=== PATIENT | male | born 1940 | race Caucasian/White ===

== ENCOUNTER 2019-10-09 09:41 | Outpatient (CLI) | payer MEDICARE, SELFPAY ==
[2019-10-09 09:54] LABS: Hematocrit 21.2 % (37.0-46.0); Mean Corpuscular HGB Conc 32.1 g/dL (32.0-36.0); Mean Corpuscular Hemoglobin 34.2 pg (27.0-31.0); Mean Corpuscular Volume 106.5 fL (78.0-102.0); Mean Platelet Volume 11.5 fl (8.7-11.0); Platelet Count Result 186 K/mm3 (150-420); Red Blood Count 1.99 M/mm3 (4.70-6.10); Red Cell Distribution Width 25.8 % (11.6-14.4); White Blood Count 3.9 K/mm3 (4.8-10.8)
[2019-10-09 10:01] LABS: Hemoglobin 6.8 g/dL (12.4-15.3)
[2019-10-09] MEDS: DARBEPOETIN ALFA 300 MCG/0.6 ML SUB-Q (10:11)
--- NOTE | 2019-10-09 10:11 | PC.NURSE ---
Patient here to receive sub Q injection of Aranesp. Patient tolerated well to right upper arm, band aid applied to site. Pt. accompanied to front door via wheelchair by this nurse. Patient is to go to oncology appointment and come back after to receive 1 UT of PRBC. Patient denies any questions at discharge.
[2019-10-09 10:39] LABS: Band Neutrophils Percent 3 % (0-6); Lymphocytes Absolute Manual 0.81 K/mm3 (1.1-4.5); Lymphocytes Percent Manual 21 % (18-44); Neutrophils Absolute Manual 2.53 K/mm3 (1.3-6.7); Neutrophils Percent Manual 62 % (46-73); Total Cells Counted 100
[2019-10-09 10:40] LABS: Basophils Absolute Manual 0.07 K/mm3 (0-0.1); Basophils Percent Manual 2 % (0-1); Eosinophils Percent Manual 0 % (1-6); Monocytes Absolute Manual 0.42 K/mm3 (0.1-0.90); Monocytes Percent Manual 11 % (3-9); Myelocytes Percent 1 %; Platelet Estimate Adequate (Adequate)
--- NOTE | 2019-10-09 11:30 | PC.NURSE ---
Patient returned from Dr. dior. Pt. sitting up in chair resting. Tolerated IV start well. Provided with call light and cup of coffee. Waiting from blood product to be ready before beginning transfusion. Blood Consent formed signed and placed on chart. Patient states understanding.
[2019-10-09 11:55] VITALS: BP 116/47; PULSE 84; RESP 18; TEMP 36.6; O2SAT 97
[2019-10-09] MEDS: ACETAMINOPHEN 325 MG TABLET 650 MG BY MOUTH (11:55)
[2019-10-09] MEDS: SODIUM CHLORIDE 0.9% IV 250 ML 100 ML IVPB (11:55)
[2019-10-09 12:15] VITALS: BP 131/44; PULSE 88; RESP 18; TEMP 36.6; O2SAT 96
--- NOTE | 2019-10-09 12:15 | PC.NURSE ---
Transfusion rate increased from 100 to 125ml/hr. Patient tolerating well. Call light at side.
--- NOTE | 2019-10-09 12:35 | PC.NURSE ---
Transfusion rate increased from 125ml/hr to 150ml/hr. Patient tolerating well.
[2019-10-09 12:48] LABS: Alanine Aminotransferase 17 U/L (16-63); Alkaline Phosphatase 90 U/L (46-116); Aspartate Amino Transferase 15 U/L (15-37); Bilirubin,Total 0.8 mg/dL (0.00-1.00); Blood Urea Nitrogen 19 mg/dL (7-18); Calcium 8.7 mg/dL (8.5-10.1); Carbon Dioxide 27 mmol/L (21-32); Chloride 105 mmol/L (98-108); Estimated Glomerular Filt Rate > 60; Ferritin 891 ng/mL (26-388); Glucose 122 mg/dL (70-99); Iron 165 ug/dL (65-175); Osmolality Calculated 293 mOsm/kg (285-295); Percent Iron Saturation 90 % (12-57); Sodium 140 mmol/L (136-145); Total Protein 6.5 g/dL (6.4-8.2)
[2019-10-09 13:15] VITALS: BP 110/40; PULSE 76; RESP 18; TEMP 36.6; O2SAT 95
--- NOTE | 2019-10-09 13:15 | PC.NURSE ---
Patient ate 100% of lunch. Resting in chair with BLE elevated. Transfusion cont. at 150ml/hr. Patient tolerating transfusion well. Denies any needs. Vital signs stable.
[2019-10-09 14:05] VITALS: BP 114/45; PULSE 75; RESP 18; TEMP 36.8; O2SAT 96
[2019-10-09 14:20] VITALS: BP 114/42; PULSE 75; RESP 18; TEMP 36.7; O2SAT 96
--- NOTE | 2019-10-09 14:20 | PC.NURSE ---
Patient tolerated blood transfusion well. Vital signs remain stable. Normal saline running till line clear. Pt. sitting up in chair resting. Lab to draw post H&H at 1520. Pt. denies any needs. Call light at side.
--- NOTE | 2019-10-09 15:45 | PC.NURSE ---
Lab in room to draw blood. Patient tolerated well. Patient waiting for result of labs before discharging.
[2019-10-09 15:51] LABS: Hematocrit 21.2 % (37.0-46.0)
--- NOTE | 2019-10-09 16:00 | PC.NURSE ---
Patient notified of lab result. IV site discontinued. Dressing applied to site. Patient tolerated well. Denies any questions or concerns. Patient accompanied to front door via wheelchair by this nurse. Next appointment for sujata made for 10-23-19 at 1000.
[2019-10-13 20:05] LABS: Transferrin 139 mg/dL (188-341)
== END 2019-10-09 09:42 | disposition home or self-care (01) ==
PROVIDERS: PCP Internal Medicine; Visit Provider Internal Medicine Hematology & Oncology
DX: D46.9 Myelodysplastic syndrome, unspecified (principal)
CPT/HCPCS: 36415; 36430; 80053; 82728; 83540; 83550; 84466; 85014; 85018; 85025; 86850; 86900; 86901; 86923; 96372; A9270; J0881; J7050; P9016

== ENCOUNTER 2019-10-23 09:45 | Outpatient (CLI) | payer MEDICARE, SELFPAY ==
[2019-10-23 09:56] LABS: Mean Corpuscular HGB Conc 31.9 g/dL (32.0-36.0); Mean Corpuscular Hemoglobin 34.3 pg (27.0-31.0); Mean Corpuscular Volume 107.4 fL (78.0-102.0); Mean Platelet Volume 11.2 fl (8.7-11.0); Platelet Count Result 172 K/mm3 (150-420); Red Blood Count 1.75 M/mm3 (4.70-6.10); Red Cell Distribution Width 25.4 % (11.6-14.4); White Blood Count 3.4 K/mm3 (4.8-10.8)
[2019-10-23 10:33] LABS: Hematocrit 18.8 % (37.0-46.0)
[2019-10-23] MEDS: DARBEPOETIN ALFA 300 MCG/0.6 ML SUB-Q (10:33)
[2019-10-23 10:35] LABS: Band Neutrophils Percent 8 % (0-6); Neutrophils Absolute Manual 2.17 K/mm3 (1.3-6.7); Neutrophils Percent Manual 56 % (46-73); Total Cells Counted 100
[2019-10-23 10:36] LABS: Basophils Percent Manual 0 % (0-1); Eosinophils Absolute Manual 0.06 K/mm3 (0.02-0.5); Eosinophils Percent Manual 2 % (1-6); Lymphocytes Absolute Manual 0.64 K/mm3 (1.1-4.5); Lymphocytes Percent Manual 19 % (18-44); Monocytes Absolute Manual 0.51 K/mm3 (0.1-0.90); Monocytes Percent Manual 15 % (3-9)
[2019-10-23 10:37] LABS: Platelet Estimate Adequate (Adequate)
[2019-10-23 11:35] VITALS: BP 100/40; PULSE 80; RESP 14; TEMP 36.6; O2SAT 94
[2019-10-23] MEDS: SODIUM CHLORIDE 0.9% IV 250 ML 30 ML IVPB (11:43)
[2019-10-23] MEDS: ACETAMINOPHEN 325 MG TABLET 650 MG PO (11:43)
[2019-10-23 12:02] VITALS: BP 100/50; PULSE 80; RESP 14; TEMP 36.6; O2SAT 94
[2019-10-23 12:20] VITALS: BP 101/49; PULSE 80; RESP 18; TEMP 36.6; O2SAT 95
[2019-10-23 13:20] VITALS: BP 102/46; PULSE 72; RESP 14; TEMP 36.7; O2SAT 95
[2019-10-23 14:05] VITALS: BP 107/49; PULSE 76; RESP 14; TEMP 36.8; O2SAT 100
[2019-10-23 15:01] LABS: Hematocrit 19.7 % (37.0-46.0); Hemoglobin 6.4 g/dL (12.4-15.3)
--- NOTE | 2019-10-23 15:10 | PC.NURSE ---
Patient received biweekly aranesp injection. H/H 6.0/18.8 Dr. Otoole office notified and received order to given 1 unit prbcs with post H/H to be drawn. Patient administered 1 unit PRBC's and post HBG 6.[address] Otoole office per Sandhya day Charge nurse. No call back noted. Patient was dc to home. Safe exit of hospital. Steady on feet. Patient has had many blood transfusions and verbalizes s/sx to look for at home for post blood transfusion.
== END 2019-10-23 09:46 | disposition home or self-care (01) ==
PROVIDERS: PCP Internal Medicine; Visit Provider Internal Medicine Hematology & Oncology
DX: D46.9 Myelodysplastic syndrome, unspecified (principal)
CPT/HCPCS: 36415; 36430; 85014; 85018; 85025; 86850; 86900; 86901; 86923; 96372; A9270; J0881; J7050; P9016

== ENCOUNTER 2019-10-24 09:53 | Outpatient (CLI) | payer MEDICARE, SELFPAY ==
--- NOTE | 2019-10-24 10:15 | PC.NURSE ---
Patient here for blood transfusion, 20 gauge IV initiated in left forearm.
[2019-10-24 10:41] VITALS: BP 109/40; PULSE 88; RESP 20; TEMP 36.9; O2SAT 98
[2019-10-24 10:57] VITALS: BP 111/35; PULSE 80; RESP 20; TEMP 36.7; O2SAT 94
--- NOTE | 2019-10-24 11:16 | PC.NURSE ---
Rate increased to 125mL per hour
[2019-10-24 11:57] VITALS: BP 110/36; PULSE 78; RESP 20; TEMP 36.5; O2SAT 96
--- NOTE | 2019-10-24 11:57 | PC.NURSE ---
Rate increased to 150mL per hour
[2019-10-24 12:57] VITALS: BP 110/42; PULSE 76; RESP 20; TEMP 36.7; O2SAT 95
[2019-10-24 13:53] VITALS: BP 125/37; PULSE 84; RESP 20; TEMP 36.5; O2SAT 96
[2019-10-24 13:56] LABS: Hemoglobin 7.3 g/dL (12.4-15.3)
--- NOTE | 2019-10-24 14:20 | PC.NURSE ---
IV line left forearm discontinued, patient assisted into wheelchair and taken downstairs. Left per private vehicle
== END 2019-10-24 09:54 | disposition home or self-care (01) ==
LOC: CHSTREATRM 09:56
PROVIDERS: PCP Internal Medicine; Visit Provider Internal Medicine Hematology & Oncology
DX: D46.9 Myelodysplastic syndrome, unspecified (principal)
CPT/HCPCS: 36415; 36430; 85014; 85018; 86923; P9016

== ENCOUNTER 2019-11-06 09:30 | Outpatient (CLI) | payer MEDICARE, SELFPAY ==
[2019-11-06] VITALS (11 sets, daily range): BP systolic 108–124; BP diastolic 40–52; PULSE 69–84; RESP 14–20; TEMP 36.3–37.1; O2SAT 94–97
[2019-11-06 09:39] LABS: Hematocrit 20.7 % (37.0-46.0); Mean Corpuscular HGB Conc 32.4 g/dL (32.0-36.0); Mean Corpuscular Hemoglobin 34.4 pg (27.0-31.0); Mean Corpuscular Volume 106.2 fL (78.0-102.0); Mean Platelet Volume 10.9 fl (8.7-11.0); Platelet Count Result 179 K/mm3 (150-420); Red Blood Count 1.95 M/mm3 (4.70-6.10); Red Cell Distribution Width 23.8 % (11.6-14.4); White Blood Count 3.8 K/mm3 (4.8-10.8)
[2019-11-06 09:58] LABS: Hemoglobin 6.7 g/dL (12.4-15.3)
[2019-11-06] MEDS: DARBEPOETIN ALFA 300 MCG/0.6 ML SUB-Q (10:00)
--- NOTE | 2019-11-06 10:08 | PC.NURSE ---
Pt to room 203 per wc. Up to chair per self using cane. A&Ox3. Oriented to room, call cain in reach. Aranesp given. IV started for blood. Reminded to call with needs.
[2019-11-06 10:11] LABS: Band Neutrophils Percent 12 % (0-6); Basophils Absolute Manual 0.03 K/mm3 (0-0.1); Basophils Percent Manual 1 % (0-1); Eosinophils Absolute Manual 0.03 K/mm3 (0.02-0.5); Eosinophils Percent Manual 1 % (1-6); Lymphocytes Absolute Manual 0.57 K/mm3 (1.1-4.5); Lymphocytes Percent Manual 15 % (18-44); Monocytes Absolute Manual 0.53 K/mm3 (0.1-0.90); Monocytes Percent Manual 14 % (3-9); Neutrophils Absolute Manual 2.62 K/mm3 (1.3-6.7); Neutrophils Percent Manual 57 % (46-73); Platelet Estimate Adequate (Adequate); Total Cells Counted 100
[2019-11-06] MEDS: ACETAMINOPHEN 325 MG TABLET 650 MG PO (10:51)
[2019-11-06] MEDS: SODIUM CHLORIDE 0.9% IV 250 ML 80 ML IVPB ×2 (11:17→15:03)
--- NOTE | 2019-11-06 14:06 | PC.NURSE ---
NS infused. Blood tubing clear. PT sleeping in chair without complaint.
[2019-11-06 14:30] LABS: Hematocrit 20.9 % (37.0-46.0)
[2019-11-06 14:32] LABS: Hemoglobin 6.8 g/dL (12.4-15.3)
--- NOTE | 2019-11-06 17:53 | PC.NURSE ---
saline lock removed per patient request, awaiting blood to be drawn prior to discharge to home
[2019-11-06 18:23] LABS: Hematocrit 24.3 % (37.0-46.0)
== END 2019-11-06 09:31 | disposition home or self-care (01) ==
LOC: CHSLAB 09:32
PROVIDERS: PCP Internal Medicine; Visit Provider Internal Medicine Hematology & Oncology
DX: D46.9 Myelodysplastic syndrome, unspecified (principal)
CPT/HCPCS: 36415; 36430; 85014; 85018; 85025; 86850; 86900; 86901; 86923; A9270; J0881; J7050; P9016

== ENCOUNTER 2019-11-20 09:37 | Outpatient (CLI) | payer MEDICARE, SELFPAY ==
[2019-11-20 09:46] LABS: Hematocrit 23.3 % (37.0-46.0); Hemoglobin 7.5 g/dL (12.4-15.3); Mean Corpuscular HGB Conc 32.2 g/dL (32.0-36.0); Mean Corpuscular Hemoglobin 32.8 pg (27.0-31.0); Mean Corpuscular Volume 101.7 fL (78.0-102.0); Mean Platelet Volume 10.4 fl (8.7-11.0); Platelet Count Result 195 K/mm3 (150-420); Red Blood Count 2.29 M/mm3 (4.70-6.10); Red Cell Distribution Width 25.2 % (11.6-14.4); White Blood Count 3.4 K/mm3 (4.8-10.8)
[2019-11-20] MEDS: DARBEPOETIN ALFA 300 MCG/0.6 ML SUB-Q (10:03)
--- NOTE | 2019-11-20 10:22 | PC.NURSE ---
PATIENT HERE FOR BIWEEKLY ARANESP INJECTION. H/H 7.5/23.[address] OCHOA. NO BLOOD TRANSFUSION NEEDED THIS WEEK. WILL RETURN IN 2 WEEKS FOR CBC AND ARANESP INJECTION. TOLERATED INJECTION WELL. SAFE EXIT OF HOSPITAL.
[2019-11-20 11:14] LABS: Band Neutrophils Percent 1 % (0-6); Basophils Percent Manual 0 % (0-1); Eosinophils Absolute Manual 0.06 K/mm3 (0.02-0.5); Eosinophils Percent Manual 2 % (1-6); Lymphocytes Absolute Manual 0.51 K/mm3 (1.1-4.5); Lymphocytes Percent Manual 15 % (18-44); Metamyelocytes Percent 1 %; Monocytes Absolute Manual 0.23 K/mm3 (0.1-0.90); Monocytes Percent Manual 7 % (3-9); Neutrophils Absolute Manual 2.55 K/mm3 (1.3-6.7); Neutrophils Percent Manual 74 % (46-73); Platelet Estimate Adequate (Adequate); Total Cells Counted 100
[2019-11-20 11:15] LABS: Anisocytosis 2+ (NORMAL)
== END 2019-11-20 09:38 | disposition home or self-care (01) ==
PROVIDERS: PCP Internal Medicine; Visit Provider Internal Medicine Hematology & Oncology
DX: D46.9 Myelodysplastic syndrome, unspecified (principal)
CPT/HCPCS: 36415; 85025; 96372; J0881

== ENCOUNTER 2019-12-04 09:46 | Outpatient (CLI) | payer MEDICARE, SELFPAY ==
[2019-12-04] VITALS (9 sets, daily range): BP systolic 103–115; BP diastolic 36–49; PULSE 74–80; RESP 14–18; TEMP 36.8–37.2; O2SAT 96–99
[2019-12-04 09:59] LABS: Mean Corpuscular HGB Conc 31.6 g/dL (32.0-36.0); Mean Corpuscular Hemoglobin 33.2 pg (27.0-31.0); Mean Corpuscular Volume 104.8 fL (78.0-102.0); Mean Platelet Volume 11.7 fl (8.7-11.0); Platelet Count Result 165 K/mm3 (150-420); Red Blood Count 1.87 M/mm3 (4.70-6.10); White Blood Count 3.8 K/mm3 (4.8-10.8)
[2019-12-04 10:02] LABS: Hematocrit 19.6 % (37.0-46.0); Hemoglobin 6.2 g/dL (12.4-15.3)
[2019-12-04] MEDS: DARBEPOETIN ALFA 300 MCG/0.6 ML SUB-Q (10:10)
[2019-12-04 10:33] LABS: Band Neutrophils Percent 1 % (0-6); Eosinophils Absolute Manual 0.03 K/mm3 (0.02-0.5); Eosinophils Percent Manual 1 % (1-6); Lymphocytes Percent Manual 16 % (18-44); Monocytes Absolute Manual 0.41 K/mm3 (0.1-0.90); Monocytes Percent Manual 11 % (3-9); Neutrophils Absolute Manual 2.69 K/mm3 (1.3-6.7); Neutrophils Percent Manual 70 % (46-73); Total Cells Counted 100
[2019-12-04 10:34] LABS: Anisocytosis 2+ (NORMAL); Metamyelocytes Percent 1 %; Platelet Estimate Adequate (Adequate)
[2019-12-04] MEDS: ACETAMINOPHEN 325 MG TABLET 650 MG PO (10:41)
[2019-12-04] MEDS: SODIUM CHLORIDE 0.9% IV 250 ML 30 ML IVPB (10:43)
[2019-12-04 13:15] LABS: Hemoglobin 6.8 g/dL (12.4-15.3)
--- NOTE | 2019-12-04 15:55 | PC.NURSE ---
Blood transfusion complete. Patient tolerated well. Vital signs remain stable. Lab notified, to draw post H&H at 1605. Pt. continue sitting up in chair resting. Call light at side.
[2019-12-04 16:23] LABS: Hematocrit 24.1 % (37.0-46.0); Hemoglobin 7.9 g/dL (12.4-15.3)
--- NOTE | 2019-12-04 16:30 | PC.NURSE ---
Lab results drawn and reported.IV site removed, tip intact. Dressing applied to site. Pt. notified of results. Pt. discharged home. This nurse accompanied pt. to front door via wheelchair. Pt. left via private vehicle. Denies any questions or concerns at discharge.
== END 2019-12-04 09:47 | disposition home or self-care (01) ==
PROVIDERS: PCP Internal Medicine; Visit Provider Internal Medicine Hematology & Oncology
DX: D46.9 Myelodysplastic syndrome, unspecified (principal)
CPT/HCPCS: 36415; 36430; 85014; 85018; 85025; 85027; 86850; 86900; 86901; 86923; 96372; A9270; J0881; J7050; P9016

== ENCOUNTER 2019-12-07 12:58 | Outpatient (CLI) | payer MEDICARE, SELFPAY ==
[2019-12-07 13:08] LABS: Hematocrit 25.7 % (37.0-46.0); Hemoglobin 8.3 g/dL (12.4-15.3); Mean Corpuscular HGB Conc 32.3 g/dL (32.0-36.0); Mean Corpuscular Hemoglobin 32.9 pg (27.0-31.0); Mean Platelet Volume 11.3 fl (8.7-11.0); Platelet Count Result 154 K/mm3 (150-420); Red Blood Count 2.52 M/mm3 (4.70-6.10); Red Cell Distribution Width 24.3 % (11.6-14.4); White Blood Count 3.2 K/mm3 (4.8-10.8)
[2019-12-07 13:53] LABS: Band Neutrophils Percent 10 % (0-6); Basophils Percent Manual 0 % (0-1); Eosinophils Absolute Manual 0.06 K/mm3 (0.02-0.5); Eosinophils Percent Manual 2 % (1-6); Lymphocytes Absolute Manual 0.83 K/mm3 (1.1-4.5); Lymphocytes Percent Manual 26 % (18-44); Monocytes Absolute Manual 0.44 K/mm3 (0.1-0.90); Monocytes Percent Manual 14 % (3-9); Myelocytes Percent 1 %; Neutrophils Absolute Manual 1.82 K/mm3 (1.3-6.7); Neutrophils Percent Manual 47 % (46-73); Platelet Estimate Adequate (Adequate); Total Cells Counted 100
== END 2019-12-07 12:59 | disposition home or self-care (01) ==
LOC: CHSLAB 13:01
PROVIDERS: PCP Internal Medicine; Visit Provider Internal Medicine Hematology & Oncology
DX: D46.9 Myelodysplastic syndrome, unspecified (principal)
CPT/HCPCS: 36415; 85025

== ENCOUNTER 2019-12-18 09:31 | Outpatient (CLI) | payer MEDICARE, SELFPAY ==
[2019-12-18 09:41] LABS: Basophils Absolute Auto 0.02 K/mm3 (0.00-0.10); Basophils Percent Auto 0.5 % (0.0-1.0); Eosinophils Absolute Auto 0.06 K/mm3 (0.02-0.50); Eosinophils Percent Auto 1.4 % (1.0-6.0); Hematocrit 22.5 % (37.0-46.0); Hemoglobin 7.4 g/dL (12.4-15.3); Immature Granulocyte Absolute 0.07 K/mm3 (0.00-0.00); Immature Granulocyte Percent A 1.7 % (0.0-0.0); Lymphocytes Absolute Auto 0.89 K/mm3 (1.10-4.50); Lymphocytes Percent Auto 21.4 % (18.0-42.0); Mean Corpuscular HGB Conc 32.9 g/dL (32.0-36.0); Mean Corpuscular Hemoglobin 34.3 pg (27.0-31.0); Mean Corpuscular Volume 104.2 fL (78.0-102.0); Mean Platelet Volume 11.1 fl (8.7-11.0); Monocytes Absolute Auto 0.46 K/mm3 (0.10-0.90); Monocytes Percent Auto 11.1 % (2.0-11.0); Neutrophils Absolute Auto 2.7 K/mm3 (1.7-7.2); Neutrophils Percent Auto 63.9 % (50.0-70.0); Platelet Count Result 191 K/mm3 (150-420); Red Blood Count 2.16 M/mm3 (4.70-6.10); Red Cell Distribution Width 25.2 % (11.6-14.4); White Blood Count 4.2 K/mm3 (4.8-10.8)
[2019-12-18] MEDS: DARBEPOETIN ALFA SUB-Q (10:11)
[2019-12-18] MEDS: ACETAMINOPHEN 325 MG TABLET 650 MG PO (10:21)
[2019-12-18] MEDS: SODIUM CHLORIDE 0.9% IV 250 ML 50 ML IVPB (10:22)
[2019-12-18 10:43] VITALS: BP 117/43; PULSE 80; RESP 14; TEMP 36.6; O2SAT 98
[2019-12-18 11:00] VITALS: BP 113/43; PULSE 76; RESP 14; TEMP 36.8; O2SAT 97
[2019-12-18 12:00] VITALS: BP 111/40; PULSE 76; RESP 14; TEMP 37; O2SAT 98
[2019-12-18 12:45] VITALS: BP 111/49; PULSE 78; RESP 14; TEMP 37; O2SAT 98
[2019-12-18 13:06] LABS: Hematocrit 22.9 % (37.0-46.0); Hemoglobin 7.4 g/dL (12.4-15.3)
--- NOTE | 2019-12-18 13:14 | PC.NURSE ---
Patient here for biweekly CBC and Aranesp injection. Aranesp injection administered. Tolerated well. No concerns voiced. Order received r/t hgb 7.4 to transfuse 1 unit of PRBC'S. 1 unit of PRB'S transfused with difficulty. Tolerated it well. Post H/H drawn. Only to receive 1 unit today. Safe exit of hospital.
== END 2019-12-18 09:32 | disposition home or self-care (01) ==
PROVIDERS: PCP Internal Medicine; Visit Provider Internal Medicine Hematology & Oncology
DX: D46.9 Myelodysplastic syndrome, unspecified (principal)
CPT/HCPCS: 36415; 36430; 85014; 85018; 85025; 86850; 86900; 86901; 86923; 96372; A9270; J0881; J7050; P9016

== ENCOUNTER 2019-12-31 09:29 | Outpatient (CLI) | payer MEDICARE, SELFPAY ==
[2019-12-31] VITALS (8 sets, daily range): BP systolic 105–127; BP diastolic 30–43; PULSE 70–78; RESP 14–18; TEMP 36.4–37.2; O2SAT 95–98
[2019-12-31 09:50] LABS: Hematocrit 20.4 % (37.0-46.0); Mean Corpuscular HGB Conc 31.9 g/dL (32.0-36.0); Mean Corpuscular Hemoglobin 32.7 pg (27.0-31.0); Mean Corpuscular Volume 102.5 fL (78.0-102.0); Mean Platelet Volume 11.7 fl (8.7-11.0); Platelet Count Result 162 K/mm3 (150-420); Red Blood Count 1.99 M/mm3 (4.70-6.10); Red Cell Distribution Width 27.5 % (11.6-14.4); White Blood Count 3.7 K/mm3 (4.8-10.8)
[2019-12-31 10:00] LABS: Hemoglobin 6.5 g/dL (12.4-15.3)
[2019-12-31] MEDS: DARBEPOETIN ALFA 300 MCG/0.6 ML SUB-Q (10:07)
[2019-12-31 10:10] LABS: Band Neutrophils Percent 6 % (0-6); Lymphocytes Percent Manual 19 % (18-44); Monocytes Absolute Manual 0.33 K/mm3 (0.1-0.90); Monocytes Percent Manual 9 % (3-9); Neutrophils Absolute Manual 2.51 K/mm3 (1.3-6.7); Neutrophils Percent Manual 62 % (46-73); Total Cells Counted 100
[2019-12-31 10:11] LABS: Eosinophils Percent Manual 0 % (1-6); Metamyelocytes Percent 3 %; Myelocytes Percent 1 %; Platelet Estimate Adequate (Adequate)
--- NOTE | 2019-12-31 10:40 | PC.NURSE ---
PATIENT RECEIVED ARANESP INJECTION. H/H 6.5/20.4. DR. OCHOA CALLING PATIENT IN ROOM FOR TELEPHONE VISIT. AWAITING ORDERS FOR TRANSFUSION OF PRBC'S TODAY. PATIENT AWARE AND IS WILLING TO WAIT AND GET IT ALL DOWN TODAY.
[2019-12-31] MEDS: ACETAMINOPHEN 325 MG TABLET 650 MG PO (11:15)
[2019-12-31] MEDS: SODIUM CHLORIDE 0.9% IV 250 ML 100 ML IVPB (11:15)
[2019-12-31 11:35] LABS: Folic Acid 9.3 ng/mL (8.6->20); Iron 137 ug/dL (65-175); Percent Iron Saturation 74 % (12-57); Prostate Specific Antigen 0.5 ng/mL (< OR = 4.0); Vitamin B12 1354 pg/mL (193-986)
[2019-12-31 11:39] LABS: Ferritin > 1000 ng/mL (26-388)
--- NOTE | 2019-12-31 13:45 | PC.NURSE ---
1st UT of PRBC completed. Patient tolerated well. Patient ate 100% of lunch. Up to bathroom independently, gait steady. Patient currently sitting up in chair resting. Lab notified to draw post H&H at 1415. Pt. reports no needs, call light and belongings at side.
[2019-12-31 14:38] LABS: Hemoglobin 6.3 g/dL (12.4-15.3)
--- NOTE | 2019-12-31 17:05 | PC.NURSE ---
2nd unit of PRBC done. Patient tolerated well. Normal saline ran till clear. Lab to draw post H&H at 1740. Patient ate 100% of supper. IV site removed, tip intact. Dressing applied to site. Patient denies any questions at this time. Patient states he will wait to see what his lab results are.
[2019-12-31 18:02] LABS: Hematocrit 24.1 % (37.0-46.0); Hemoglobin 7.9 g/dL (12.4-15.3)
--- NOTE | 2019-12-31 18:10 | PC.NURSE ---
Patient notified of lab results. This nurse accompanied patient to front door via wheelchair. Patient left independently via private vehicle. Patient denies any questions at discharge.
[2020-01-02 18:22] LABS: Transferrin 128 mg/dL (188-341)
[2020-01-04 15:56] LABS: Testosterone Free 23.5 pg/mL (30.0-135.0); Testosterone Total 201 ng/dL (250-1100)
== END 2019-12-31 09:30 | disposition home or self-care (01) ==
LOC: CHSLAB 09:37 → CHSTREATRM 09:56
PROVIDERS: PCP Internal Medicine; Visit Provider Internal Medicine Hematology & Oncology
DX: D46.9 Myelodysplastic syndrome, unspecified (principal); C96.9 Malignant neoplasm of lymphoid, hematopoietic and related tissue, unspecified; E34.9 Endocrine disorder, unspecified; Z12.5 Encounter for screening for malignant neoplasm of prostate
CPT/HCPCS: 36415; 36430; 82607; 82728; 82746; 83540; 83550; 84153; 84402; 84403; 84466; 85014; 85018; 85025; 86850; 86900; 86901; 86923; 96372; A9270; G0103; J0881; J7050; P9016

== ENCOUNTER 2020-01-15 10:03 | Outpatient (CLI) | payer MEDICARE, SELFPAY ==
[2020-01-15] VITALS (8 sets, daily range): BP systolic 104–122; BP diastolic 39–43; PULSE 72–84; RESP 12–18; TEMP 36.7–36.9; O2SAT 96–97
[2020-01-15 10:13] LABS: Basophils Absolute Auto 0.03 K/mm3 (0.00-0.10); Basophils Percent Auto 0.7 % (0.0-1.0); Eosinophils Absolute Auto 0.04 K/mm3 (0.02-0.50); Eosinophils Percent Auto 0.9 % (1.0-6.0); Hematocrit 21.6 % (37.0-46.0); Immature Granulocyte Percent A 2.3 % (0.0-0.0); Lymphocytes Absolute Auto 0.86 K/mm3 (1.10-4.50); Lymphocytes Percent Auto 19.5 % (18.0-42.0); Mean Corpuscular HGB Conc 31.9 g/dL (32.0-36.0); Mean Corpuscular Hemoglobin 32.9 pg (27.0-31.0); Mean Corpuscular Volume 102.9 fL (78.0-102.0); Mean Platelet Volume 12.9 fl (8.7-11.0); Monocytes Percent Auto 11.4 % (2.0-11.0); Neutrophils Absolute Auto 2.9 K/mm3 (1.7-7.2); Neutrophils Percent Auto 65.2 % (50.0-70.0); Platelet Count Result 151 K/mm3 (150-420); Red Cell Distribution Width 26.1 % (11.6-14.4); White Blood Count 4.4 K/mm3 (4.8-10.8)
[2020-01-15 10:22] LABS: Hemoglobin 6.9 g/dL (12.4-15.3)
[2020-01-15] MEDS: DARBEPOETIN ALFA 300 MCG/0.6 ML SUB-Q (10:29)
[2020-01-15] MEDS: ACETAMINOPHEN 325 MG TABLET 650 MG PO (11:26)
[2020-01-15] MEDS: SODIUM CHLORIDE 0.9% IV 250 ML 30 ML IVPB (11:27)
[2020-01-15 14:06] LABS: Hematocrit 21.6 % (37.0-46.0); Hemoglobin 7.1 g/dL (12.4-15.3)
--- NOTE | 2020-01-15 16:35 | PC.NURSE ---
Addendum entered by Yesenia Walker RN 01/15/20 16:46: Post H&H will be draw at 1730. Original Note: Blood transfusion complete. Patient tolerated well. IV line running Saline till clear. Lab notified that blood is done. Will come draw post H&H at 1700. Patient sitting up in chair resting, call cain at side. Vital signs remain stable.
[2020-01-15 17:27] LABS: Hematocrit 25.5 % (37.0-46.0); Hemoglobin 8.4 g/dL (12.4-15.3)
== END 2020-01-15 17:30 ==
PROVIDERS: PCP Internal Medicine; Visit Provider Internal Medicine Hematology & Oncology
DX: D46.9 Myelodysplastic syndrome, unspecified (principal)
CPT/HCPCS: 36415; 36430; 85014; 85018; 85025; 86850; 86900; 86901; 86923; 96372; A9270; J0881; J7050; P9016

== ENCOUNTER 2020-01-30 09:30 | Outpatient (RCR) | payer MEDICARE, SELFPAY ==
[2020-01-29 09:30] LABS: Basophils Absolute Auto 0.03 K/mm3 (0.00-0.10); Basophils Percent Auto 0.6 % (0.0-1.0); Eosinophils Absolute Auto 0.04 K/mm3 (0.02-0.50); Eosinophils Percent Auto 0.9 % (1.0-6.0); Hematocrit 22.6 % (37.0-46.0); Hemoglobin 7.3 g/dL (12.4-15.3); Immature Granulocyte Percent A 2.2 % (0.0-0.0); Lymphocytes Absolute Auto 0.95 K/mm3 (1.10-4.50); Lymphocytes Percent Auto 20.4 % (18.0-42.0); Mean Corpuscular HGB Conc 32.3 g/dL (32.0-36.0); Mean Corpuscular Hemoglobin 32.7 pg (27.0-31.0); Mean Corpuscular Volume 101.3 fL (78.0-102.0); Monocytes Absolute Auto 0.57 K/mm3 (0.10-0.90); Monocytes Percent Auto 12.3 % (2.0-11.0); Neutrophils Percent Auto 63.6 % (50.0-70.0); Platelet Count Result 195 K/mm3 (150-420); Red Blood Count 2.23 M/mm3 (4.70-6.10); Red Cell Distribution Width 25.2 % (11.6-14.4); White Blood Count 4.7 K/mm3 (4.8-10.8)
[2020-01-29] MEDS: DARBEPOETIN ALFA 300 MCG/0.6 ML SUB-Q (09:46)
--- NOTE | 2020-01-29 09:57 | PC.NURSE ---
DR. OCHOA'S OFFICE CALLED TO NOTIFY OF HGB 7.3, HCT 22.6.
--- NOTE | 2020-01-29 11:05 | PC.NURSE ---
PT HAS DECIDED TO GO HOME INSTEAD OF WAIT FOR DR. OCHOA'S OFFICE TO CALL TO SEE IF HE WILL GET A BLOOD TRANSFUSION. CONTINUING EDUCATION INSTRUCTOR WILL CALL PATIENT AT HOME TO RETURN IF BLOOD TRANSFUSION IS ORDERED. PT TAKEN TO CAR PER WC WITH VOLUNTEER.
[2020-01-30] VITALS (10 sets, daily range): BP systolic 92–123; BP diastolic 38–48; PULSE 72–85; RESP 16–18; TEMP 36.7–37.1; O2SAT 95–98
[2020-01-30] MEDS: ACETAMINOPHEN 325 MG TABLET 650 MG PO (10:00)
[2020-01-30] MEDS: SODIUM CHLORIDE 0.9% IV 250 ML 30 ML IVPB (10:17)
[2020-01-30 13:14] LABS: Hematocrit 23.3 % (37.0-46.0); Hemoglobin 7.5 g/dL (12.4-15.3)
[2020-01-30 16:13] LABS: Hematocrit 25.9 % (37.0-46.0); Hemoglobin 8.5 g/dL (12.4-15.3)
== END 2020-02-01 14:40 | disposition home or self-care (01) ==
LOC: CHSTREATRM 09:30
PROVIDERS: PCP Internal Medicine; Visit Provider Internal Medicine Hematology & Oncology
DX: D46.9 Myelodysplastic syndrome, unspecified (principal)
CPT/HCPCS: 36415; 36430; 85014; 85018; 85025; 86850; 86900; 86901; 86923; 96372; A9270; J0881; J7050; P9016

== ENCOUNTER 2020-02-12 09:42 | Outpatient (CLI) | payer MEDICARE, SELFPAY ==
[2020-02-12 09:53] LABS: Basophils Absolute Auto 0.04 K/mm3 (0.00-0.10); Basophils Percent Auto 0.9 % (0.0-1.0); Eosinophils Absolute Auto 0.04 K/mm3 (0.02-0.50); Eosinophils Percent Auto 0.9 % (1.0-6.0); Hematocrit 25.1 % (37.0-46.0); Immature Granulocyte Absolute 0.07 K/mm3 (0.00-0.00); Immature Granulocyte Percent A 1.6 % (0.0-0.0); Lymphocytes Absolute Auto 0.86 K/mm3 (1.10-4.50); Lymphocytes Percent Auto 19.7 % (18.0-42.0); Mean Corpuscular HGB Conc 31.9 g/dL (32.0-36.0); Mean Corpuscular Hemoglobin 32.7 pg (27.0-31.0); Mean Corpuscular Volume 102.4 fL (78.0-102.0); Mean Platelet Volume 11.3 fl (8.7-11.0); Monocytes Absolute Auto 0.53 K/mm3 (0.10-0.90); Monocytes Percent Auto 12.1 % (2.0-11.0); Neutrophils Absolute Auto 2.8 K/mm3 (1.7-7.2); Neutrophils Percent Auto 64.8 % (50.0-70.0); Platelet Count Result 201 K/mm3 (150-420); Red Blood Count 2.45 M/mm3 (4.70-6.10); White Blood Count 4.4 K/mm3 (4.8-10.8)
[2020-02-12] MEDS: DARBEPOETIN ALFA 300 MCG/0.6 ML SUB-Q (10:14)
== END 2020-02-12 09:43 | disposition home or self-care (01) ==
LOC: CHSLAB 09:49 → CHSTREATRM 10:00
PROVIDERS: PCP Internal Medicine; Visit Provider Internal Medicine Hematology & Oncology
DX: D46.9 Myelodysplastic syndrome, unspecified (principal)
CPT/HCPCS: 36415; 85025; 96372; J0881

== ENCOUNTER 2020-02-26 09:24 | Outpatient (CLI) | payer MEDICARE, SELFPAY ==
[2020-02-26] VITALS (8 sets, daily range): BP systolic 105–121; BP diastolic 30–42; PULSE 71–79; RESP 16; TEMP 36.4–36.8; O2SAT 96–99
[2020-02-26 09:34] LABS: Basophils Absolute Auto 0.03 K/mm3 (0.00-0.10); Basophils Percent Auto 0.7 % (0.0-1.0); Eosinophils Absolute Auto 0.03 K/mm3 (0.02-0.50); Eosinophils Percent Auto 0.7 % (1.0-6.0); Immature Granulocyte Absolute 0.11 K/mm3 (0.00-0.00); Immature Granulocyte Percent A 2.6 % (0.0-0.0); Lymphocytes Absolute Auto 0.99 K/mm3 (1.10-4.50); Lymphocytes Percent Auto 23.6 % (18.0-42.0); Mean Corpuscular HGB Conc 32.3 g/dL (32.0-36.0); Mean Corpuscular Hemoglobin 33.5 pg (27.0-31.0); Mean Corpuscular Volume 103.9 fL (78.0-102.0); Mean Platelet Volume 11.8 fl (8.7-11.0); Monocytes Percent Auto 14.3 % (2.0-11.0); Neutrophils Absolute Auto 2.4 K/mm3 (1.7-7.2); Neutrophils Percent Auto 58.1 % (50.0-70.0); Platelet Count Result 160 K/mm3 (150-420); Red Blood Count 1.79 M/mm3 (4.70-6.10); Red Cell Distribution Width 27.1 % (11.6-14.4); White Blood Count 4.2 K/mm3 (4.8-10.8)
[2020-02-26 09:37] LABS: Hematocrit 18.6 % (37.0-46.0)
[2020-02-26] MEDS: DARBEPOETIN ALFA 300 MCG/0.6 ML SUB-Q (09:45)
--- NOTE | 2020-02-26 09:45 | PC.NURSE ---
Dr. Otoole office contacted with patient H&H results. N.O. received for patient to be type and crossed for 2 unit of PRBC. Orders to be faxed over.
[2020-02-26] MEDS: ACETAMINOPHEN 325 MG TABLET 650 MG PO (10:20)
[2020-02-26] MEDS: SODIUM CHLORIDE 0.9% IV 250 ML 10 ML IVPB (10:21)
[2020-02-26 13:50] LABS: Hematocrit 18.9 % (37.0-46.0); Hemoglobin 6.3 g/dL (12.4-15.3)
[2020-02-26 17:06] LABS: Hematocrit 23.1 % (37.0-46.0); Hemoglobin 7.6 g/dL (12.4-15.3)
--- NOTE | 2020-02-26 17:30 | PC.NURSE ---
Patient finished supper. Post H&H resulted, Patient notified. IV site removed, tip intact. Dressing applied to site. Patient discharged home. Accompanied to front door via wheelchair by this nurse. Patient left via private vehicle.
== END 2020-02-26 09:25 | disposition home or self-care (01) ==
LOC: CHSTREATRM 09:25
PROVIDERS: PCP Internal Medicine; Visit Provider Internal Medicine Hematology & Oncology
DX: D46.9 Myelodysplastic syndrome, unspecified (principal)
CPT/HCPCS: 36415; 36430; 85014; 85018; 85025; 86850; 86900; 86901; 86923; 96372; A9270; J0881; J7050; P9016

== ENCOUNTER 2020-03-11 09:55 | Outpatient (CLI) | payer MEDICARE, SELFPAY ==
[2020-03-11] VITALS (9 sets, daily range): BP systolic 99–110; BP diastolic 39–53; PULSE 72–80; RESP 14–16; TEMP 36.6–36.9; O2SAT 96–97
[2020-03-11 10:06] LABS: Mean Corpuscular HGB Conc 32.4 g/dL (32.0-36.0); Mean Corpuscular Hemoglobin 33.8 pg (27.0-31.0); Mean Corpuscular Volume 104.6 fL (78.0-102.0); Mean Platelet Volume 11.1 fl (8.7-11.0); Platelet Count Result 185 K/mm3 (150-420); Red Blood Count 1.95 M/mm3 (4.70-6.10); Red Cell Distribution Width 26.2 % (11.6-14.4); White Blood Count 3.9 K/mm3 (4.8-10.8)
[2020-03-11 10:13] LABS: Hematocrit 20.4 % (37.0-46.0); Hemoglobin 6.6 g/dL (12.4-15.3)
[2020-03-11] MEDS: DARBEPOETIN ALFA 300 MCG/0.6 ML SUB-Q (10:41)
[2020-03-11 10:45] LABS: Band Neutrophils Percent 3 % (0-6); Eosinophils Absolute Manual 0.03 K/mm3 (0.02-0.5); Eosinophils Percent Manual 1 % (1-6); Lymphocytes Absolute Manual 0.62 K/mm3 (1.1-4.5); Lymphocytes Percent Manual 16 % (18-44); Monocytes Absolute Manual 0.42 K/mm3 (0.1-0.90); Monocytes Percent Manual 11 % (3-9); Myelocytes Percent 2 %; Neutrophils Absolute Manual 2.73 K/mm3 (1.3-6.7); Neutrophils Percent Manual 67 % (46-73); Total Cells Counted 100
[2020-03-11 10:46] LABS: Platelet Estimate Adequate (Adequate)
[2020-03-11] MEDS: diphenhydrAMINE HCl CAP 25 MG CAPSULE PO (11:19)
[2020-03-11] MEDS: SODIUM CHLORIDE 0.9% IV 250 ML 10 ML IVPB (11:19)
[2020-03-11] MEDS: ACETAMINOPHEN 325 MG TABLET 650 MG PO (11:19)
[2020-03-11 13:16] LABS: Hematocrit 20.3 % (37.0-46.0)
[2020-03-11 13:19] LABS: Hemoglobin 6.4 g/dL (12.4-15.3)
--- NOTE | 2020-03-11 14:11 | PC.NURSE ---
1300 PATIENT HERE FOR MONTHLY ORENCIA IV INFUSION. NO CONCERNS VOICED. ORENCIA INFUSION ADMINISTERED. TOLERATED IT WELL. SAFE EXIT OF HOSPITAL.
[2020-03-11 16:44] LABS: Hematocrit 23.1 % (37.0-46.0); Hemoglobin 7.5 g/dL (12.4-15.3)
--- NOTE | 2020-03-14 09:29 | PC.NURSE ---
03/11/2020 1000 PATIENT RECEIVED ARANESP INJECTION (SEE MAR). ALSO GETTING 2 UNIT PRBC'S TRANSFUSED TODAY (SEE TAR). 03/11/2020 1650 PATIENT COMPLETED BLOOD TRANSFUSION AND POST 1 HOUR H/H DRAW. TOLERATED INFUSIONS TODAY VERY WELL. NO CONCERNS VOICED. SAFE EXIT OF HOSPITAL.
== END 2020-03-11 09:56 | disposition home or self-care (01) ==
PROVIDERS: PCP Internal Medicine; Visit Provider Internal Medicine Hematology & Oncology
DX: D46.9 Myelodysplastic syndrome, unspecified (principal)
CPT/HCPCS: 36415; 36430; 85014; 85018; 85025; 86850; 86900; 86901; 86923; 96372; A9270; J0881; J7050; P9016

== ENCOUNTER 2020-03-25 09:37 | Outpatient (CLI) | payer MEDICARE, SELFPAY ==
[2020-03-25 09:49] LABS: Hematocrit 21.8 % (37.0-46.0); Mean Corpuscular HGB Conc 32.1 g/dL (32.0-36.0); Mean Corpuscular Hemoglobin 33.5 pg (27.0-31.0); Mean Corpuscular Volume 104.3 fL (78.0-102.0); Mean Platelet Volume 10.9 fl (8.7-11.0); Platelet Count Result 189 K/mm3 (150-420); Red Blood Count 2.09 M/mm3 (4.70-6.10); Red Cell Distribution Width 25.4 % (11.6-14.4); White Blood Count 3.7 K/mm3 (4.8-10.8)
[2020-03-25] MEDS: DARBEPOETIN ALFA 300 MCG/0.6 ML SUB-Q (10:05)
[2020-03-25 10:22] LABS: Band Neutrophils Percent 2 % (0-6); Basophils Percent Manual 0 % (0-1); Eosinophils Percent Manual 0 % (1-6); Lymphocytes Absolute Manual 0.74 K/mm3 (1.1-4.5); Lymphocytes Percent Manual 20 % (18-44); Metamyelocytes Percent 2 %; Monocytes Absolute Manual 0.29 K/mm3 (0.1-0.90); Monocytes Percent Manual 8 % (3-9); Myelocytes Percent 1 %; Neutrophils Absolute Manual 2.55 K/mm3 (1.3-6.7); Neutrophils Percent Manual 67 % (46-73); Platelet Estimate Adequate (Adequate); Total Cells Counted 100
[2020-03-25] MEDS: ACETAMINOPHEN 325 MG TABLET 650 MG PO (10:52)
[2020-03-25] MEDS: SODIUM CHLORIDE 0.9% IV 250 ML 10 ML IVPB (10:52)
[2020-03-25] MEDS: diphenhydrAMINE HCl CAP 25 MG CAPSULE PO (10:52)
[2020-03-25 10:54] VITALS: BP 107/37; PULSE 80; RESP 18; TEMP 36.7; O2SAT 96
[2020-03-25 11:10] VITALS: BP 105/35; PULSE 74; RESP 18; TEMP 36.6; O2SAT 97
[2020-03-25 12:10] VITALS: BP 119/32; PULSE 72; RESP 18; TEMP 36.8; O2SAT 97
[2020-03-25 13:00] VITALS: BP 115/27; PULSE 73; RESP 18; TEMP 36.7; O2SAT 98
--- NOTE | 2020-03-25 13:00 | PC.NURSE ---
Blood transfusion complete. Post H&H to be drawn at 1400. Patient sitting up in chair resting eating lunch. Denies any further needs. IV line running NS till line clear.
[2020-03-25 14:10] LABS: Hematocrit 22.4 % (37.0-46.0); Hemoglobin 7.1 g/dL (12.4-15.3)
== END 2020-03-25 09:38 | disposition home or self-care (01) ==
PROVIDERS: PCP Internal Medicine; Visit Provider Internal Medicine Hematology & Oncology
DX: D46.9 Myelodysplastic syndrome, unspecified (principal)
CPT/HCPCS: 36415; 36430; 85014; 85018; 85025; 86850; 86900; 86901; 86923; 96372; A9270; J0881; J7050; P9016

== ENCOUNTER 2020-04-08 09:12 | Outpatient (CLI) | payer MEDICARE, SELFPAY ==
[2020-04-08] VITALS (9 sets, daily range): BP systolic 105–134; BP diastolic 40–73; PULSE 72–82; RESP 18; TEMP 36.6–37.3; O2SAT 95–100
[2020-04-08 09:24] LABS: Mean Corpuscular HGB Conc 32.1 g/dL (32.0-36.0); Mean Corpuscular Hemoglobin 34.2 pg (27.0-31.0); Mean Corpuscular Volume 106.5 fL (78.0-102.0); Mean Platelet Volume 11.3 fl (8.7-11.0); Platelet Count Result 162 K/mm3 (150-420); Red Blood Count 1.84 M/mm3 (4.70-6.10); Red Cell Distribution Width 25.7 % (11.6-14.4); White Blood Count 2.8 K/mm3 (4.8-10.8)
[2020-04-08] MEDS: DARBEPOETIN ALFA 300 MCG/0.6 ML SUB-Q (09:30)
[2020-04-08 10:00] LABS: Hemoglobin 6.3 g/dL (12.4-15.3)
[2020-04-08 10:01] LABS: Hematocrit 19.6 % (37.0-46.0)
[2020-04-08 10:02] LABS: Band Neutrophils Percent 4 % (0-6); Basophils Percent Manual 0 % (0-1); Eosinophils Absolute Manual 0.08 K/mm3 (0.02-0.5); Eosinophils Percent Manual 3 % (1-6); Lymphocytes Absolute Manual 0.61 K/mm3 (1.1-4.5); Lymphocytes Percent Manual 22 % (18-44); Metamyelocytes Percent 0 %; Monocytes Absolute Manual 0.42 K/mm3 (0.1-0.90); Monocytes Percent Manual 15 % (3-9); Myelocytes Percent 1 %; Neutrophils Absolute Manual 1.65 K/mm3 (1.3-6.7); Neutrophils Percent Manual 55 % (46-73); Platelet Estimate Adequate (Adequate); Total Cells Counted 100
[2020-04-08] MEDS: ACETAMINOPHEN 325 MG TABLET 650 MG PO (10:38)
[2020-04-08] MEDS: diphenhydrAMINE HCl CAP 25 MG CAPSULE PO (10:39)
[2020-04-08] MEDS: SODIUM CHLORIDE 0.9% IV 250 ML 10 ML IVPB (10:55)
--- NOTE | 2020-04-08 12:43 | PC.NURSE ---
Ate lunch, tolerating infusion well
[2020-04-08 13:19] LABS: Hematocrit 21.8 % (37.0-46.0)
--- NOTE | 2020-04-08 13:52 | PC.NURSE ---
Second unit infusing, tolerating well
[2020-04-08 16:42] LABS: Hematocrit 24.9 % (37.0-46.0); Hemoglobin 8.1 g/dL (12.4-15.3)
== END 2020-04-08 09:13 | disposition home or self-care (01) ==
PROVIDERS: PCP Internal Medicine; Visit Provider Internal Medicine Hematology & Oncology
DX: D46.9 Myelodysplastic syndrome, unspecified (principal)
CPT/HCPCS: 36415; 36430; 85014; 85018; 85025; 86850; 86900; 86901; 86923; 96372; A9270; J0881; J7050; P9016

== ENCOUNTER 2020-04-22 09:44 | Outpatient (CLI) | payer MEDICARE, SELFPAY ==
[2020-04-22 09:54] LABS: Hematocrit 22.1 % (37.0-46.0); Mean Corpuscular HGB Conc 31.7 g/dL (32.0-36.0); Mean Corpuscular Volume 104.2 fL (78.0-102.0); Mean Platelet Volume 10.9 fl (8.7-11.0); Platelet Count Result 189 K/mm3 (150-420); Red Blood Count 2.12 M/mm3 (4.70-6.10); Red Cell Distribution Width 23.9 % (11.6-14.4); White Blood Count 3.2 K/mm3 (4.8-10.8)
[2020-04-22] MEDS: DARBEPOETIN ALFA 300 MCG/0.6 ML SUB-Q (10:06)
--- NOTE | 2020-04-22 10:19 | PC.NURSE ---
Tolerated biweekly Aranesp injection. Counts called to Dr Otoole. New order received to give 1 unit of PRBC'S Wrist watch moved from left wrist and he put it in his valeria pocket.
[2020-04-22] MEDS: ACETAMINOPHEN 325 MG TABLET 650 MG PO (10:33)
[2020-04-22] MEDS: SODIUM CHLORIDE 0.9% IV 250 ML 10 ML IVPB (10:33)
[2020-04-22 10:39] LABS: Band Neutrophils Percent 8 % (0-6); Basophils Absolute Manual 0.03 K/mm3 (0-0.1); Basophils Percent Manual 1 % (0-1); Eosinophils Absolute Manual 0.06 K/mm3 (0.02-0.5); Eosinophils Percent Manual 2 % (1-6); Lymphocytes Percent Manual 19 % (18-44); Monocytes Absolute Manual 0.41 K/mm3 (0.1-0.90); Monocytes Percent Manual 13 % (3-9); Neutrophils Absolute Manual 2.08 K/mm3 (1.3-6.7); Neutrophils Percent Manual 57 % (46-73); Platelet Estimate Adequate (Adequate); Total Cells Counted 100
[2020-04-22 11:00] VITALS: BP 108/43; PULSE 80; RESP 14; TEMP 37.1; O2SAT 97
[2020-04-22 11:16] VITALS: BP 106/43; PULSE 80; RESP 14; TEMP 37.2; O2SAT 97
[2020-04-22 12:16] VITALS: BP 110/42; PULSE 80; RESP 16; TEMP 37.1; O2SAT 97
[2020-04-22 13:00] VITALS: BP 100/45; PULSE 76; RESP 14; TEMP 37; O2SAT 97
[2020-04-22 13:58] LABS: Hematocrit 22.5 % (37.0-46.0); Hemoglobin 7.1 g/dL (12.4-15.3)
--- NOTE | 2020-04-22 13:59 | PC.NURSE ---
Orders received to get one unit PRBC's. One Unit of PRBC's administered without any difficulty. Patient has been receiving transfusion about every other week. No concerns voiced. 1 hour post H/H drawn. Patient dc to home. Safe exit of hospital.
== END 2020-04-22 09:45 | disposition home or self-care (01) ==
PROVIDERS: PCP Internal Medicine; Visit Provider Internal Medicine Hematology & Oncology
DX: D46.9 Myelodysplastic syndrome, unspecified (principal); D53.9 Nutritional anemia, unspecified
CPT/HCPCS: 36415; 36430; 85014; 85018; 85025; 86850; 86900; 86901; 86923; 96372; A9270; J0881; J7050; P9016

== ENCOUNTER 2020-05-06 09:25 | Outpatient (CLI) | payer MEDICARE, SELFPAY ==
[2020-05-06] VITALS (10 sets, daily range): BP systolic 102–113; BP diastolic 42–49; PULSE 72–78; RESP 14; TEMP 36.4–36.8; O2SAT 96–98
[2020-05-06 09:41] LABS: Hematocrit 21.9 % (37.0-46.0); Mean Corpuscular HGB Conc 31.1 g/dL (32.0-36.0); Mean Corpuscular Hemoglobin 33.3 pg (27.0-31.0); Mean Corpuscular Volume 107.4 fL (78.0-102.0); Mean Platelet Volume 12.3 fl (8.7-11.0); Platelet Count Result 179 K/mm3 (150-420); Red Blood Count 2.04 M/mm3 (4.70-6.10); Red Cell Distribution Width 24.9 % (11.6-14.4); White Blood Count 3.5 K/mm3 (4.8-10.8)
[2020-05-06] MEDS: DARBEPOETIN ALFA 300 MCG/0.6 ML SUB-Q (10:16)
[2020-05-06 10:20] LABS: Hemoglobin 6.8 g/dL (12.4-15.3)
[2020-05-06 10:21] LABS: Platelet Estimate Adequate (Adequate); Total Cells Counted 100
[2020-05-06 10:22] LABS: Basophils Absolute Manual 0.03 K/mm3 (0-0.1); Basophils Percent Manual 1 % (0-1); Lymphocytes Absolute Manual 0.45 K/mm3 (1.1-4.5); Lymphocytes Percent Manual 13 % (18-44); Monocytes Absolute Manual 0.63 K/mm3 (0.1-0.90); Monocytes Percent Manual 18 % (3-9); Myelocytes Percent 1 %; Neutrophils Percent Manual 67 % (46-73)
[2020-05-06] MEDS: ACETAMINOPHEN 325 MG TABLET 650 MG PO (10:56)
[2020-05-06] MEDS: SODIUM CHLORIDE 0.9% IV 250 ML 10 ML IVPB (10:57)
[2020-05-06 14:06] LABS: Hematocrit 21.9 % (37.0-46.0)
[2020-05-06 14:21] LABS: Hemoglobin 6.9 g/dL (12.4-15.3)
--- NOTE | 2020-05-06 16:20 | PC.NURSE ---
Patient here for biweekly Aranesp injection. H -6.9/ Order from Dr. Otoole to transfuse 2 units PRBC's/ 2 units of PRBC's administered. Tolerated well. Dc safely exit of hospital post H/H was drawn.
[2020-05-06 16:35] LABS: Hematocrit 25.3 % (37.0-46.0); Hemoglobin 8.1 g/dL (12.4-15.3)
== END 2020-05-06 09:26 | disposition home or self-care (01) ==
LOC: CHSLAB 09:29 → CHSTREATRM 09:53
PROVIDERS: PCP Internal Medicine; Visit Provider Internal Medicine Hematology & Oncology
DX: D46.9 Myelodysplastic syndrome, unspecified (principal)
CPT/HCPCS: 36415; 36430; 85014; 85018; 85025; 86850; 86900; 86901; 86923; 96372; A9270; J0881; J7050; P9016

== ENCOUNTER 2020-05-20 09:24 | Outpatient (CLI) | payer MEDICARE, SELFPAY ==
[2020-05-20] VITALS (9 sets, daily range): BP systolic 99–119; BP diastolic 44–46; PULSE 72–78; RESP 14–16; TEMP 36.6–36.9; O2SAT 96–99
[2020-05-20 09:34] LABS: Hematocrit 22.3 % (37.0-46.0); Hemoglobin 7.1 g/dL (12.4-15.3); Mean Corpuscular HGB Conc 31.8 g/dL (32.0-36.0); Mean Corpuscular Hemoglobin 33.6 pg (27.0-31.0); Mean Corpuscular Volume 105.7 fL (78.0-102.0); Mean Platelet Volume 10.6 fl (8.7-11.0); Platelet Count Result 205 K/mm3 (150-420); Red Blood Count 2.11 M/mm3 (4.70-6.10); Red Cell Distribution Width 23.6 % (11.6-14.4); White Blood Count 3.1 K/mm3 (4.8-10.8)
[2020-05-20] MEDS: DARBEPOETIN ALFA 300 MCG/0.6 ML SUB-Q (09:50)
[2020-05-20 10:10] LABS: Band Neutrophils Percent 0 % (0-6); Neutrophils Absolute Manual 1.98 K/mm3 (1.3-6.7); Neutrophils Percent Manual 64 % (46-73); Total Cells Counted 100
[2020-05-20 10:11] LABS: Anisocytosis 3+ (NORMAL); Lymphocytes Absolute Manual 0.68 K/mm3 (1.1-4.5); Lymphocytes Percent Manual 22 % (18-44); Monocytes Absolute Manual 0.43 K/mm3 (0.1-0.90); Monocytes Percent Manual 14 % (3-9); Platelet Estimate Adequate (Adequate)
[2020-05-20] MEDS: ACETAMINOPHEN 325 MG TABLET 650 MG PO (10:17)
[2020-05-20] MEDS: SODIUM CHLORIDE 0.9% IV 250 ML 10 ML IVPB (10:18)
[2020-05-20 13:33] LABS: Hematocrit 22.9 % (37.0-46.0); Hemoglobin 7.2 g/dL (12.4-15.3)
[2020-05-20 16:09] LABS: Hematocrit 24.7 % (37.0-46.0); Hemoglobin 8.1 g/dL (12.4-15.3)
== END 2020-05-20 16:15 | disposition home or self-care (01) ==
LOC: CHSLAB 09:27 → CHSTREATRM 09:41
PROVIDERS: PCP Internal Medicine; Visit Provider Internal Medicine Hematology & Oncology
DX: D46.9 Myelodysplastic syndrome, unspecified (principal)
CPT/HCPCS: 36415; 36430; 85014; 85018; 85025; 86850; 86900; 86901; 86923; 96365; 96366; 96372; A9270; J0881; J7050; P9016

== ENCOUNTER 2020-06-03 09:18 | Outpatient (CLI) | payer MEDICARE, SELFPAY ==
[2020-06-03 09:29] LABS: Hemoglobin 7.5 g/dL (12.4-15.3); Mean Corpuscular HGB Conc 31.3 g/dL (32.0-36.0); Mean Corpuscular Hemoglobin 32.3 pg (27.0-31.0); Mean Corpuscular Volume 103.4 fL (78.0-102.0); Mean Platelet Volume 10.8 fl (8.7-11.0); Platelet Count Result 196 K/mm3 (150-420); Red Blood Count 2.32 M/mm3 (4.70-6.10); Red Cell Distribution Width 23.5 % (11.6-14.4); White Blood Count 3.2 K/mm3 (4.8-10.8)
[2020-06-03] MEDS: DARBEPOETIN ALFA 300 MCG/0.6 ML SUB-Q (09:54)
--- NOTE | 2020-06-03 10:00 | PC.NURSE ---
Patient tolerated SQ injection well. Band aid applied. Dr. Otoole office contacted, patient to receive 1 UT of PRBC Patient reports I do not want the blood, I don't want it at 7.5. Dr. Otoole office notified of patient refusing blood. Patient discharged home, education done with patient about signs and symptoms of low blood count and when he should come into the ER if symptoms present. Patient stated understanding. This nurse accompanied patient to front door via wheelchair. Patient left via private vehicle.
[2020-06-03 10:04] LABS: Band Neutrophils Percent 4 % (0-6); Basophils Absolute Manual 0.06 K/mm3 (0-0.1); Basophils Percent Manual 2 % (0-1); Eosinophils Absolute Manual 0.06 K/mm3 (0.02-0.5); Eosinophils Percent Manual 2 % (1-6); Lymphocytes Absolute Manual 0.64 K/mm3 (1.1-4.5); Lymphocytes Percent Manual 20 % (18-44); Monocytes Absolute Manual 0.32 K/mm3 (0.1-0.90); Monocytes Percent Manual 10 % (3-9); Neutrophils Absolute Manual 2.11 K/mm3 (1.3-6.7); Neutrophils Percent Manual 62 % (46-73); Total Cells Counted 100
[2020-06-03 10:05] LABS: Platelet Estimate Adequate (Adequate)
== END 2020-06-03 09:19 | disposition home or self-care (01) ==
LOC: CHSTREATRM 09:20
PROVIDERS: PCP Internal Medicine; Visit Provider Internal Medicine Hematology & Oncology
DX: D46.9 Myelodysplastic syndrome, unspecified (principal)
CPT/HCPCS: 36415; 85025; 96372; J0881

== ENCOUNTER 2020-06-17 09:32 | Outpatient (CLI) | payer MEDICARE, SELFPAY ==
[2020-06-17] VITALS (9 sets, daily range): BP systolic 106–117; BP diastolic 40–49; PULSE 74–80; RESP 14–16; TEMP 36.6–36.9; O2SAT 97–98
[2020-06-17 09:43] LABS: Mean Corpuscular HGB Conc 31.4 g/dL (32.0-36.0); Mean Corpuscular Hemoglobin 33.7 pg (27.0-31.0); Mean Corpuscular Volume 107.3 fL (78.0-102.0); Mean Platelet Volume 11.5 fl (8.7-11.0); Platelet Count Result 158 K/mm3 (150-420); Red Blood Count 1.78 M/mm3 (4.70-6.10); Red Cell Distribution Width 25.9 % (11.6-14.4); White Blood Count 2.8 K/mm3 (4.8-10.8)
[2020-06-17] MEDS: DARBEPOETIN ALFA 300 MCG/0.6 ML SUB-Q (09:55)
[2020-06-17 09:58] LABS: Hematocrit 19.1 % (37.0-46.0)
[2020-06-17 10:07] LABS: Band Neutrophils Percent 10 % (0-6); Basophils Absolute Manual 0.02 K/mm3 (0-0.1); Basophils Percent Manual 1 % (0-1); Eosinophils Absolute Manual 0.02 K/mm3 (0.02-0.5); Eosinophils Percent Manual 1 % (1-6); Lymphocytes Absolute Manual 0.44 K/mm3 (1.1-4.5); Lymphocytes Percent Manual 16 % (18-44); Monocytes Absolute Manual 0.39 K/mm3 (0.1-0.90); Monocytes Percent Manual 14 % (3-9); Neutrophils Percent Manual 58 % (46-73); Platelet Estimate Adequate (Adequate); Total Cells Counted 100
--- NOTE | 2020-06-17 10:10 | PC.NURSE ---
Patient here for biweekly Aranesp SC Injection. H/H 6.0/19.0 Patient states, I probably be getting 2 units of blood today. Aranesp 300 mcg SC administered see OCT. Call to Dr. Otoole about counts. New orders received for transfusion of 2 units of PRBC's. Instructed patient and notified lab. NO other concerns voiced.-------
[2020-06-17] MEDS: ACETAMINOPHEN 325 MG TABLET 650 MG PO (10:27)
[2020-06-17] MEDS: SODIUM CHLORIDE 0.9% IV 250 ML 10 ML IVPB (10:30)
--- NOTE | 2020-06-17 11:07 | PC.NURSE ---
1058 First unit PRBCS started. Refer to TAR.
[2020-06-17 13:35] LABS: Hemoglobin 6.1 g/dL (12.4-15.3)
--- NOTE | 2020-06-17 15:56 | PC.NURSE ---
1556 Patient tolerated 2 units PRBC's welll. No concerns other than he wants to go home. Lab drawing post H/H. Will return in two weeks for cbc and Aranesp injection and possible blood if needed. 1600 Safe exit of hospital per wheel chair to his vehicle.
[2020-06-17 16:13] LABS: Hemoglobin 6.9 g/dL (12.4-15.3)
[2020-06-17 16:14] LABS: Hematocrit 21.3 % (37.0-46.0)
== END 2020-06-17 09:33 | disposition home or self-care (01) ==
LOC: CHSTREATRM 09:34
PROVIDERS: PCP Internal Medicine; Visit Provider Internal Medicine Hematology & Oncology
DX: D46.9 Myelodysplastic syndrome, unspecified (principal)
CPT/HCPCS: 36415; 36430; 85014; 85018; 85025; 86850; 86900; 86901; 86923; 96372; A9270; J0881; J7050; P9016

== ENCOUNTER 2020-06-24 09:40 | Outpatient (RCR) | payer MEDICARE, SELFPAY ==
[2020-06-23 10:55] LABS: Hematocrit 21.3 % (37.0-46.0); Mean Corpuscular HGB Conc 31.9 g/dL (32.0-36.0); Mean Corpuscular Volume 106.5 fL (78.0-102.0); Platelet Count Result 133 K/mm3 (150-420); Red Cell Distribution Width 23.9 % (11.6-14.4)
[2020-06-23 11:11] LABS: Hemoglobin 6.8 g/dL (12.4-15.3)
[2020-06-23 11:37] LABS: Band Neutrophils Percent 4 % (0-6); Neutrophils Absolute Manual 1.74 K/mm3 (1.3-6.7); Neutrophils Percent Manual 54 % (46-73); Total Cells Counted 100
[2020-06-23 11:38] LABS: Basophils Percent Manual 0 % (0-1); Eosinophils Absolute Manual 0.12 K/mm3 (0.02-0.5); Eosinophils Percent Manual 4 % (1-6); Lymphocytes Absolute Manual 0.66 K/mm3 (1.1-4.5); Lymphocytes Percent Manual 22 % (18-44); Metamyelocytes Percent 2 %; Monocytes Absolute Manual 0.36 K/mm3 (0.1-0.90); Monocytes Percent Manual 12 % (3-9); Myelocytes Percent 2 %; Nucleated Red Blood Cells 1 %; Platelet Estimate Adequate (Adequate)
[2020-06-24] VITALS (9 sets, daily range): BP systolic 102–114; BP diastolic 40–49; PULSE 68–80; RESP 12–18; TEMP 36.6–36.9; O2SAT 96–99
[2020-06-24] MEDS: ACETAMINOPHEN 325 MG TABLET 650 MG PO (10:23)
[2020-06-24] MEDS: SODIUM CHLORIDE 0.9% IV 250 ML 10 ML IVPB (10:24)
[2020-06-24 13:02] LABS: Hematocrit 22.6 % (37.0-46.0); Hemoglobin 7.3 g/dL (12.4-15.3)
--- NOTE | 2020-06-24 16:31 | PC.NURSE ---
Patient finished receiving 2 units prbc's. SEE TAR. Tolerated transfusion well. Awaiting post H/H. Then will be discharge to home.
[2020-06-24 16:45] LABS: Hematocrit 25.2 % (37.0-46.0); Hemoglobin 8.1 g/dL (12.4-15.3)
== END 2020-09-21 23:59 | disposition home or self-care (01) ==
LOC: CHSTREATRM 09:40
PROVIDERS: PCP Internal Medicine; Visit Provider Internal Medicine Hematology & Oncology
DX: D46.9 Myelodysplastic syndrome, unspecified (principal)
CPT/HCPCS: 36415; 36430; 85014; 85018; 85025; 86850; 86900; 86901; 86923; A9270; J7050; P9016

== ENCOUNTER 2020-07-01 09:24 | Outpatient (CLI) | payer MEDICARE, SELFPAY ==
[2020-07-01 09:33] LABS: Hematocrit 25.9 % (37.0-46.0); Mean Corpuscular HGB Conc 30.9 g/dL (32.0-36.0); Mean Corpuscular Hemoglobin 32.5 pg (27.0-31.0); Mean Corpuscular Volume 105.3 fL (78.0-102.0); Mean Platelet Volume 11.1 fl (8.7-11.0); Platelet Count Result 141 K/mm3 (150-420); Red Blood Count 2.46 M/mm3 (4.70-6.10); Red Cell Distribution Width 22.9 % (11.6-14.4); White Blood Count 2.7 K/mm3 (4.8-10.8)
[2020-07-01] MEDS: DARBEPOETIN ALFA 300 MCG/0.6 ML SUB-Q (09:45)
[2020-07-01 09:58] LABS: Band Neutrophils Percent 8 % (0-6); Basophils Absolute Manual 0.02 K/mm3 (0-0.1); Basophils Percent Manual 1 % (0-1); Eosinophils Absolute Manual 0.02 K/mm3 (0.02-0.5); Eosinophils Percent Manual 1 % (1-6); Lymphocytes Absolute Manual 0.51 K/mm3 (1.1-4.5); Lymphocytes Percent Manual 19 % (18-44); Monocytes Absolute Manual 0.21 K/mm3 (0.1-0.90); Monocytes Percent Manual 8 % (3-9); Neutrophils Absolute Manual 1.72 K/mm3 (1.3-6.7); Neutrophils Percent Manual 56 % (46-73); Platelet Estimate Adequate (Adequate); Total Cells Counted 100
[2020-07-01 09:59] LABS: Metamyelocytes Percent 3 %; Myelocytes Percent 4 %
[2020-07-01 10:00] LABS: Anisocytosis 1+ (NORMAL)
== END 2020-07-01 09:25 | disposition home or self-care (01) ==
PROVIDERS: PCP Internal Medicine; Visit Provider Internal Medicine Hematology & Oncology
DX: D46.9 Myelodysplastic syndrome, unspecified (principal)
CPT/HCPCS: 36415; 85025; 96372; J0881

== ENCOUNTER 2020-07-08 09:15 | Outpatient (CLI) | payer MEDICARE, SELFPAY ==
[2020-07-08 09:32] LABS: Hematocrit 24.6 % (37.0-46.0); Hemoglobin 7.7 g/dL (12.4-15.3); Mean Corpuscular HGB Conc 31.3 g/dL (32.0-36.0); Mean Corpuscular Hemoglobin 32.5 pg (27.0-31.0); Mean Corpuscular Volume 103.8 fL (78.0-102.0); Mean Platelet Volume 10.6 fl (8.7-11.0); Platelet Count Result 190 K/mm3 (150-420); Red Blood Count 2.37 M/mm3 (4.70-6.10); Red Cell Distribution Width 24.1 % (11.6-14.4); White Blood Count 3.2 K/mm3 (4.8-10.8)
[2020-07-08 10:11] LABS: Band Neutrophils Percent 2 % (0-6); Basophils Absolute Manual 0.03 K/mm3 (0-0.1); Basophils Percent Manual 1 % (0-1); Eosinophils Absolute Manual 0.03 K/mm3 (0.02-0.5); Eosinophils Percent Manual 1 % (1-6); Lymphocytes Absolute Manual 0.44 K/mm3 (1.1-4.5); Lymphocytes Percent Manual 14 % (18-44); Monocytes Absolute Manual 0.51 K/mm3 (0.1-0.90); Monocytes Percent Manual 16 % (3-9); Neutrophils Absolute Manual 2.17 K/mm3 (1.3-6.7); Neutrophils Percent Manual 66 % (46-73); Platelet Estimate Adequate (Adequate); Total Cells Counted 100
[2020-07-08 11:26] LABS: Alanine Aminotransferase 35 U/L (16-63); Albumin Level 3.9 g/dL (3.4-5.0); Alkaline Phosphatase 109 U/L (46-116); Anion Gap 9 mmol/L (8-16); Aspartate Amino Transferase 18 U/L (15-37); Bilirubin,Total 0.7 mg/dL (0.00-1.00); Blood Urea Nitrogen 15 mg/dL (7-18); Calcium 8.6 mg/dL (8.5-10.1); Carbon Dioxide 27 mmol/L (21-32); Chloride 104 mmol/L (98-108); Estimated Glomerular Filt Rate > 60; Folic Acid 3.3 ng/mL (8.6->20); Glucose 161 mg/dL (70-99); Iron 164 ug/dL (65-175); Osmolality Calculated 293 mOsm/kg (285-295); Percent Iron Saturation 95 % (12-57); Potassium 4.4 mmol/L (3.5-5.1); Sodium 140 mmol/L (136-145); Total Protein 6.1 g/dL (6.4-8.2); Vitamin B12 1388 pg/mL (193-986)
[2020-07-08 11:27] LABS: Ferritin > 1000 ng/mL (26-388)
[2020-07-13 10:59] LABS: Testosterone Free 22.5 pg/mL (30.0-135.0); Testosterone Total 245 ng/dL (250-1100)
== END 2020-07-08 09:16 | disposition home or self-care (01) ==
LOC: CHSTREATRM 09:17
PROVIDERS: PCP Internal Medicine; Visit Provider Internal Medicine Hematology & Oncology
DX: D46.9 Myelodysplastic syndrome, unspecified (principal); D53.9 Nutritional anemia, unspecified; E34.9 Endocrine disorder, unspecified
CPT/HCPCS: 36415; 80053; 82607; 82728; 82746; 83540; 83550; 84402; 84403; 85025

== ENCOUNTER 2020-07-15 09:26 | Outpatient (CLI) | payer MEDICARE, SELFPAY ==
[2020-07-15 09:39] LABS: Hematocrit 22.4 % (37.0-46.0); Hemoglobin 7.1 g/dL (12.4-15.3); Mean Corpuscular HGB Conc 31.7 g/dL (32.0-36.0); Mean Corpuscular Hemoglobin 33.5 pg (27.0-31.0); Mean Corpuscular Volume 105.7 fL (78.0-102.0); Mean Platelet Volume 11.4 fl (8.7-11.0); Platelet Count Result 168 K/mm3 (150-420); Red Blood Count 2.12 M/mm3 (4.70-6.10); Red Cell Distribution Width 25.5 % (11.6-14.4); White Blood Count 3.3 K/mm3 (4.8-10.8)
[2020-07-15] MEDS: DARBEPOETIN ALFA 300 MCG/0.6 ML SUB-Q (09:49)
--- NOTE | 2020-07-15 09:53 | PC.NURSE ---
Patient here biweekly H/H and Aranesp injection. H/H 7.1/22.4. Patient reports feeling asystomatic of s/sx of low blood count. Patient states, I'm not staying for tranfusion of blood even if Dr. Otoole orders it. Support given. Notified Dr. tOoole's office. No new orders given at this time. Aranesp injection administered. Tolerated well. Safe exit of hospital. Will return in 2019 for labs/aranesp.
[2020-07-15 10:34] LABS: Basophils Absolute Auto 0.02 K/mm3 (0.00-0.10); Basophils Percent Auto 0.6 % (0.0-1.0); Eosinophils Absolute Auto 0.03 K/mm3 (0.02-0.50); Eosinophils Percent Auto 0.9 % (1.0-6.0); Immature Granulocyte Absolute 0.06 K/mm3 (0.00-0.00); Immature Granulocyte Percent A 1.8 % (0.0-0.0); Lymphocytes Absolute Auto 0.63 K/mm3 (1.10-4.50); Lymphocytes Percent Auto 18.9 % (18.0-42.0); Monocytes Absolute Auto 0.45 K/mm3 (0.10-0.90); Monocytes Percent Auto 13.5 % (2.0-11.0); Neutrophils Absolute Auto 2.1 K/mm3 (1.7-7.2); Neutrophils Percent Auto 64.3 % (50.0-70.0)
[2020-07-15 11:01] LABS: Anisocytosis 2+ (NORMAL); Band Neutrophils Percent 0 % (0-6); Basophils Absolute Manual 0.09 K/mm3 (0-0.1); Basophils Percent Manual 3 % (0-1); Eosinophils Absolute Manual 0.09 K/mm3 (0.02-0.5); Eosinophils Percent Manual 3 % (1-6); Hypochromasia 2+ (NORMAL); Lymphocytes Absolute Manual 0.59 K/mm3 (1.1-4.5); Lymphocytes Percent Manual 18 % (18-44); Monocytes Absolute Manual 0.09 K/mm3 (0.1-0.90); Monocytes Percent Manual 3 % (3-9); Neutrophils Percent Manual 73 % (46-73); Platelet Estimate Adequate (Adequate); Total Cells Counted 100
== END 2020-07-15 09:27 | disposition home or self-care (01) ==
PROVIDERS: PCP Internal Medicine; Visit Provider Internal Medicine Hematology & Oncology
DX: D46.9 Myelodysplastic syndrome, unspecified (principal)
CPT/HCPCS: 36415; 85025; 96372; J0881

== ENCOUNTER 2020-07-16 09:24 | Outpatient (CLI) | payer MEDICARE, SELFPAY | END 2020-07-16 09:25 | disposition home or self-care (01) | LOC: CHSLAB 09:28 | PROVIDERS: PCP Internal Medicine; Visit Provider Internal Medicine Hematology & Oncology | DX: Z53.9 Procedure and treatment not carried out, unspecified reason (principal) | CPT/HCPCS: 99199 ==

== ENCOUNTER 2020-07-20 09:18 | Outpatient (CLI) | payer MEDICARE, SELFPAY ==
[2020-07-20] VITALS (10 sets, daily range): BP systolic 103–125; BP diastolic 27–66; PULSE 66–69; RESP 18–20; TEMP 36.3–36.9; O2SAT 95–98
[2020-07-20 09:35] LABS: Immature Platelet Fraction Pct 8.6 % (1.0-7.0); Mean Corpuscular HGB Conc 31.3 g/dL (32.0-36.0); Mean Corpuscular Hemoglobin 33.5 pg (27.0-31.0); Mean Corpuscular Volume 107.2 fL (78.0-102.0); Platelet Count Result 141 K/mm3 (150-420); Red Blood Count 1.67 M/mm3 (4.70-6.10); Red Cell Distribution Width 26.4 % (11.6-14.4); White Blood Count 3.4 K/mm3 (4.8-10.8)
--- NOTE | 2020-07-20 09:35 | PC.NURSE ---
Pt to room 202 per wc with laborer chemical processing. Pt A&Ox3. To chair with sba assist. Has on complaints or questions. Oriented to room. Call cain in reach. Reminded to call with needs.
[2020-07-20 09:39] LABS: Hemoglobin 5.6 g/dL (12.4-15.3)
[2020-07-20 09:40] LABS: Hematocrit 17.9 % (37.0-46.0)
[2020-07-20 09:59] LABS: Band Neutrophils Percent 3 % (0-6); Basophils Percent Manual 0 % (0-1); Eosinophils Absolute Manual 0.13 K/mm3 (0.02-0.5); Eosinophils Percent Manual 4 % (1-6); Lymphocytes Absolute Manual 0.34 K/mm3 (1.1-4.5); Lymphocytes Percent Manual 10 % (18-44); Metamyelocytes Percent 2 %; Monocytes Absolute Manual 0.27 K/mm3 (0.1-0.90); Monocytes Percent Manual 8 % (3-9); Myelocytes Percent 2 %; Neutrophils Absolute Manual 2.51 K/mm3 (1.3-6.7); Neutrophils Percent Manual 71 % (46-73); Platelet Estimate Adequate (Adequate); Total Cells Counted 100
[2020-07-20] MEDS: ACETAMINOPHEN 325 MG TABLET 650 MG PO (10:12)
[2020-07-20] MEDS: SODIUM CHLORIDE 0.9% IV 250 ML 10 ML IVPB (10:13)
[2020-07-20] MEDS: diphenhydrAMINE HCl CAP 25 MG CAPSULE PO (10:13)
--- NOTE | 2020-07-20 10:47 | PC.NURSE ---
Blood transfusion started without difficulty. Pt tolerating well. Has no questions. Call cain in reach. reminded to call with needs.
[2020-07-20 13:45] LABS: Hematocrit 18.8 % (37.0-46.0)
--- NOTE | 2020-07-20 13:56 | PC.NURSE ---
First unit of PRBC's infuesed without difficulty. Pt tolerated well. Hgb 6.0 after first unit. Second unit started. pt tolerating well. Has no complaints.
--- NOTE | 2020-07-20 17:22 | PC.NURSE ---
1620 Blood product completed. Lab notified that patient's blood is completed and H&H will need to be drawn around 1720. No s/s of reaction.
[2020-07-20 17:40] LABS: Hematocrit 24.9 % (37.0-46.0); Hemoglobin 8.2 g/dL (12.4-15.3)
--- NOTE | 2020-07-20 17:58 | PC.NURSE ---
1730 Lab here to draw H&H. IV removed intact, no active bleeding noted. No s/s of reaction. Patient laughing and joking. Nurse escorted patient to car. Patient to call in a.m. to find out H&H results. Nurse reminded patient that he is to come in Saturday for injection. Patient acknowledged he was to come in on Saturday.
== END 2020-07-20 09:19 | disposition home or self-care (01) ==
LOC: CHSTREATRM 09:20
PROVIDERS: PCP Internal Medicine; Visit Provider Internal Medicine Hematology & Oncology
DX: D53.9 Nutritional anemia, unspecified (principal)
CPT/HCPCS: 36415; 36430; 85014; 85018; 85025; 85055; 86850; 86900; 86901; 86923; A9270; J7050; P9016

== ENCOUNTER 2020-07-22 13:09 | Emergency (ER) | payer MEDICARE, SELFPAY ==
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
[2020-07-22 13:16] VITALS: BP 155/79; PULSE 74; RESP 14; TEMP 37.1; O2SAT 98
[2020-07-22 14:08] LABS: Hematocrit 23.2 % (37.0-46.0); Hemoglobin 7.8 g/dL (12.4-15.3); Immature Platelet Fraction Pct 9.2 % (1.0-7.0); Mean Corpuscular HGB Conc 33.6 g/dL (32.0-36.0); Mean Corpuscular Hemoglobin 32.9 pg (27.0-31.0); Mean Corpuscular Volume 97.9 fL (78.0-102.0); Mean Platelet Volume 12.3 fl (8.7-11.0); Platelet Count Result 127 K/mm3 (150-420); Red Blood Count 2.37 M/mm3 (4.70-6.10); Red Cell Distribution Width 23.1 % (11.6-14.4); White Blood Count 3.1 K/mm3 (4.8-10.8)
[2020-07-22 14:23] LABS: Alanine Aminotransferase 34 U/L (16-63); Albumin Level 3.4 g/dL (3.4-5.0); Alkaline Phosphatase 79 U/L (46-116); Anion Gap 8 mmol/L (8-16); Aspartate Amino Transferase 21 U/L (15-37); Bilirubin,Total 1.3 mg/dL (0.00-1.00); Blood Urea Nitrogen 16 mg/dL (7-18); Calcium 8.4 mg/dL (8.5-10.1); Carbon Dioxide 28 mmol/L (21-32); Chloride 103 mmol/L (98-108); Estimated CRCL calculation 73 ml/min; Estimated Glomerular Filt Rate > 60; Glucose 114 mg/dL (70-99); Osmolality Calculated 290 mOsm/kg (285-295); Potassium 4.1 mmol/L (3.5-5.1); Sodium 139 mmol/L (136-145); Total Protein 5.8 g/dL (6.4-8.2)
[2020-07-22] MEDS: MORPHINE SULFATE (*CRX) 2 MG/ML INJ (14:25)
[2020-07-22] MEDS: ONDANSETRON INJ 4 MG/2 ML VIAL (14:25)
[2020-07-22 14:33] LABS: INR 1.3; Prothrombin Time 12.9 Seconds (9.64-11.0)
--- NOTE | 2020-07-22 14:44 | PC.NURSE ---
PT TAKEN TO CT DEPARTMENT BY WHEELCHAIR AT THIS TIME
[2020-07-22 14:45] LABS: Band Neutrophils Percent 8 % (0-6); Basophils Percent Manual 0 % (0-1); Eosinophils Absolute Manual 0.03 K/mm3 (0.02-0.5); Eosinophils Percent Manual 1 % (1-6); Lymphocytes Absolute Manual 0.34 K/mm3 (1.1-4.5); Lymphocytes Percent Manual 11 % (18-44); Metamyelocytes Percent 1 %; Monocytes Absolute Manual 0.37 K/mm3 (0.1-0.90); Monocytes Percent Manual 12 % (3-9); Neutrophils Absolute Manual 2.32 K/mm3 (1.3-6.7); Neutrophils Percent Manual 67 % (46-73); Platelet Estimate Adequate (Adequate); Total Cells Counted 100
[2020-07-22 14:46] LABS: Anisocytosis 1+ (NORMAL); Hypochromasia 1+ (NORMAL)
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
[2020-07-22 15:46] VITALS: BP 138/69; PULSE 68; RESP 14; O2SAT 98
== END 2020-07-22 16:03 | disposition home or self-care (01) ==
PROVIDERS: Emergency Provider Family Medicine; PCP Internal Medicine
DX: M47.816 Spondylosis without myelopathy or radiculopathy, lumbar region (principal); D64.9 Anemia, unspecified; J18.9 Pneumonia, unspecified organism; Z85.6 Personal history of leukemia
CPT/HCPCS: 36415; 70450; 71260; 72125; 74177; 80053; 85025; 85055; 85610; 96374; 96375; 99283; 99284; A9270; J2270; J2405; Q9965

== ENCOUNTER 2020-07-30 09:49 | Inpatient (IN) | payer MEDICARE, SELFPAY ==
--- NOTE | ~2020-07-30 | XR_ITS ---
EXAMINATION: 1. XR hip RT 1V 2. XR femur RT min 2V DATE: 08/02/2020 13:29 INDICATION: Right hip pain. TECHNIQUE: 2 views of right femur on 3 radiographs and single view of right hip were obtained. COMPARISON: None. FINDINGS: RIGHT FEMUR: There is a comminuted intertrochanteric fracture of proximal right femur. The main dista l fracture fragment demonstrates 15 degrees varus angulation, 8 mm anterior displacement, and mild po sterior angulation. There is mild right hip and right knee osteoarthritis. There is chondrocalcinosis of the menisci. RIGHT HIP: Again seen is the comminuted intertrochanteric fracture of proximal right femur. IMPRESSION: 1. Comminuted intertrochanteric fracture of proximal right femur. 2. Mild polyarticular osteoarthritis. Reviewed, dictated and finalized at location A. [facility] IMPRESSION: 1. Comminuted intertrochanteric fracture of proximal right femur. 2. Mild polyarticular osteoarthritis.
[2020-07-30 10:01] VITALS: BP 114/66; PULSE 64; RESP 16; TEMP 36.4; O2SAT 98
--- NOTE | 2020-07-30 10:06 | ECG_ITS ---
Measurements Intervals [place] Rate: 64 P: 75 LA: 183 QRS: -21 QRSD: 93 T: 161 QT: 406 QTc: 420 Interpretive Statements SINUS RHYTHM ATRIAL PREMATURE COMPLEX LOW QRS VOLTAGE IN LIMB LEADS CANNOT RULE OUT SEPTAL INFARCT, AGE INDETERMINATE ST-T WAVE ABNORMALITY IN ANTEROLATERAL LEADS- CONSIDER ISCHEMIA BASELINE ARTIFACT- V4-V6 ABNORMAL ECG Electronically Signed On 08-01-2020 7:25:05 VIDEO NETWORK ENGINEER by Axel Dover D.O.
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
[2020-07-30] MEDS: HYDROcodone/acetaminophen (*CRX) 5-325 MG TABLET 1 TAB PO (10:24)
[2020-07-30 10:26] LABS: Hematocrit 24.4 % (37.0-46.0); Hemoglobin 7.8 g/dL (12.4-15.3); Mean Corpuscular Hemoglobin 32.6 pg (27.0-31.0); Mean Corpuscular Volume 102.1 fL (78.0-102.0); Mean Platelet Volume 11.6 fl (8.7-11.0); Platelet Count Result 144 K/mm3 (150-420); Red Blood Count 2.39 M/mm3 (4.70-6.10); Red Cell Distribution Width 23.4 % (11.6-14.4); White Blood Count 2.7 K/mm3 (4.8-10.8)
[2020-07-30 10:43] LABS: BNP 329 pg/mL (0-100); Band Neutrophils Percent 2 % (0-6); Neutrophils Percent Manual 65 % (46-73); Total Cells Counted 100
[2020-07-30 10:44] LABS: Basophils Percent Manual 0 % (0-1); Eosinophils Percent Manual 0 % (1-6); Lymphocytes Absolute Manual 0.51 K/mm3 (1.1-4.5); Lymphocytes Percent Manual 19 % (18-44); Monocytes Absolute Manual 0.35 K/mm3 (0.1-0.90); Monocytes Percent Manual 13 % (3-9); Myelocytes Percent 1 %; Platelet Estimate Adequate (Adequate)
[2020-07-30 10:47] LABS: Troponin I < 0.02 ng/mL (0.00-0.056)
[2020-07-30 10:47] LABS: Alanine Aminotransferase 27 U/L (16-63); Albumin Level 3.7 g/dL (3.4-5.0); Alkaline Phosphatase 93 U/L (46-116); Anion Gap 8 mmol/L (8-16); Aspartate Amino Transferase 21 U/L (15-37); Bilirubin,Total 0.9 mg/dL (0.00-1.00); Blood Urea Nitrogen 20 mg/dL (7-18); Calcium 8.8 mg/dL (8.5-10.1); Carbon Dioxide 31 mmol/L (21-32); Chloride 106 mmol/L (98-108); Estimated CRCL calculation 53 ml/min; Estimated Glomerular Filt Rate > 60; Glucose 126 mg/dL (70-99); Osmolality Calculated 304 mOsm/kg (285-295); Potassium 3.6 mmol/L (3.5-5.1); Sodium 145 mmol/L (136-145); Total Protein 6.1 g/dL (6.4-8.2)
[2020-07-30 10:58] LABS: Appearance Urine Clear (Clear); Bilirubin Urine 1+ (Negative); Color Urine Yellow (Yellow); Glucose Urine UA Negative (Negative); Ketones Urine Trace (Negative); Leukocyte Esterase Ur Negative (Negative); Nitrate Urine Negative (Negative); Protein Urine Trace (Negative); Specific Grav Ur >= 1.030 (1.010-1.020); pH Urine 5.5 (5.0-8.0)
[2020-07-30 11:02] LABS: Add Urine Microscopic? YES; Bacteria Urine Trace /hpf; Blood Urine Trace-Intact (Negative); RBC Urine 0-2 /hpf (0-2); WBC Urine 0-3 /hpf (0-3)
[2020-07-30 11:03] LABS: Mucus Urine Moderate /lpf
[2020-07-30 11:31] VITALS: PULSE 68; RESP 20; O2SAT 98
[2020-07-30] MEDS: SODIUM CHLORIDE 0.9% IV 1,000 ML 100 ML IV CONT ×2 (11:42→20:36)
[2020-07-30 11:50] VITALS: BP 115/54; PULSE 61; O2SAT 95
--- NOTE | 2020-07-30 12:35 | PC.NURSE ---
Patient brought up from ED per stretcher, transferred to bed using safe patient handling equipment. Patient oriented to room and call light. Patient requested pudding, two pudding cups at bedside. Patient feeding self.
[2020-07-30 12:45] VITALS: BP 120/46; PULSE 70; RESP 18; TEMP 36.5; O2SAT 97; BMI 18.1
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
[2020-07-30] MEDS: GABAPENTIN 400 MG CAPSULE 800 MG PO ×3 (13:54→20:37)
[2020-07-30] MEDS: LIDOCAINE 5% PATCH 1 PATCH TRANSDERM (13:55)
[2020-07-30 14:00] VITALS: BP 122/40; PULSE 68; RESP 20; TEMP 36.6; O2SAT 98
[2020-07-30 16:00] VITALS: BP 113/35; PULSE 58; RESP 18; TEMP 36.4; O2SAT 96
[2020-07-30] MEDS: traZODone HCL 25 MG TABLET PO (20:37)
[2020-07-30] MEDS: MONTELUKAST SODIUM 10 MG TABLET PO (20:37)
--- NOTE | 2020-07-30 21:34 | PC.NURSE ---
pt appears to be sleeping, breathing even, iv fluids running, urinal in reach
--- NOTE | 2020-07-30 22:30 | PC.NURSE ---
pt appears to be sleeping, iv running, breathing even, call light in reach
[2020-07-31] VITALS (12 sets, daily range): BP systolic 103–146; BP diastolic 32–58; PULSE 66–82; RESP 18–20; TEMP 36.6–37.6; O2SAT 94–100
--- NOTE | 2020-07-31 01:25 | PC.NURSE ---
patient ambulated to the bathroom with assist of one, gait belt and walker. gait is weak.
[2020-07-31] MEDS: GABAPENTIN 400 MG CAPSULE 800 MG PO ×6 (01:29→20:50)
[2020-07-31 05:38] LABS: Mean Corpuscular HGB Conc 31.8 g/dL (32.0-36.0); Mean Corpuscular Volume 103.7 fL (78.0-102.0); Mean Platelet Volume 12.2 fl (8.7-11.0); Platelet Count Result 114 K/mm3 (150-420); Red Blood Count 1.91 M/mm3 (4.70-6.10); Red Cell Distribution Width 23.8 % (11.6-14.4); White Blood Count 2.5 K/mm3 (4.8-10.8)
[2020-07-31 05:47] LABS: Anion Gap 6 mmol/L (8-16); Blood Urea Nitrogen 18 mg/dL (7-18); Carbon Dioxide 30 mmol/L (21-32); Chloride 107 mmol/L (98-108); Estimated CRCL calculation 63 ml/min; Estimated Glomerular Filt Rate > 60; Glucose 106 mg/dL (70-99); Osmolality Calculated 297 mOsm/kg (285-295); Potassium 3.8 mmol/L (3.5-5.1); Sodium 143 mmol/L (136-145)
[2020-07-31 05:48] LABS: Hemoglobin 6.3 g/dL (12.4-15.3)
[2020-07-31 05:49] LABS: Hematocrit 19.8 % (37.0-46.0)
[2020-07-31] MEDS: traMADol HCL (*CRX) 25 MG TABLET PO (05:53)
[2020-07-31] MEDS: SODIUM CHLORIDE 0.9% IV 1,000 ML 100 ML IV CONT ×2 (05:54→23:48)
[2020-07-31 06:08] LABS: Band Neutrophils Percent 0 % (0-6); Basophils Absolute Manual 0.02 K/mm3 (0-0.1); Basophils Percent Manual 1 % (0-1); Eosinophils Absolute Manual 0.05 K/mm3 (0.02-0.5); Eosinophils Percent Manual 2 % (1-6); Lymphocytes Percent Manual 28 % (18-44); Monocytes Absolute Manual 0.25 K/mm3 (0.1-0.90); Monocytes Percent Manual 10 % (3-9); Neutrophils Absolute Manual 1.47 K/mm3 (1.3-6.7); Neutrophils Percent Manual 59 % (46-73); Platelet Estimate Adequate (Adequate); Total Cells Counted 100
[2020-07-31 06:09] LABS: Anisocytosis 2+ (NORMAL)
--- NOTE | 2020-07-31 06:10 | PC.NURSE ---
Lab called with critical H/H. notified. New order received for type and screen and 2 administer 2 units of PRBC.
--- NOTE | 2020-07-31 07:54 | PM.IMPN ---
Progress Note: A&P Assessment and Plan (1) Acute dehydration: Code(s): E86.0 - Dehydration Status: Acute Assessment and Plan: Continue IV hydration 07/31/2020 continue with patient will saline 100 mL/hr, vital signs stable, patient currently getting 2 units PRBCs (2) Adult failure to thrive: Code(s): R62.7 - Adult failure to thrive Status: Acute Assessment and Plan: Added supplementary nutrition Added my Megace 07/31/2020 at this time patient's appetite is still low, continue with Megace, encourage patient to eat, once blood transfusion has completed anticipate patient having a little more energy and hopefully increased appetite (3) Encounter for blood transfusion: Code(s): Z51.89 - Encounter for other specified aftercare Status: Acute Assessment and Plan: Monitor hemoglobin and hematocrit Will transfuse with hemoglobin less than 7 Will collect type and screen in the a.m. 07/31/2020 1248 hours patient received 1 unit PRBCs 2nd one to follow, no Lasix will be given after infusion as patient is here for dehydration, will check H&H at least 1-1/2 hour post 2nd PRBC transfusion. (4) Chronic anemia: Code(s): D64.9 - Anemia, unspecified Status: Acute Assessment and Plan: Monitor hemoglobin and hematocrit Will transfuse with hemoglobin less than 7 Will collect type and screen in the a.m. No active bleeding noted 07/31/2020 07/31/2020 as noted above under encounter for blood transfusion (5) Depression: Code(s): F32.9 - Major depressive disorder, single episode, unspecified Status: Acute Assessment and Plan: Continue Lexapro amitriptyline and buspirone on hold 07/31/2020 continue as noted above (6) Myelodysplasia (myelodysplastic syndrome): Code(s): D46.9 - Myelodysplastic syndrome, unspecified Status: Acute Assessment and Plan: Continue to monitor CBC Follow-up with oncologist [employer] (7) GERD without esophagitis: Code(s): K21.9 - Gastro-esophageal reflux disease without esophagitis Status: Acute Assessment and Plan: Continue Protonix 07/31/2020 continue with Protonix (8) Weakness: Code(s): R53.1 - Weakness Status: Acute Assessment and Plan: PT OT evaluated Possible transition to swing bed 07/31/2020 my understanding is patient will be transitioned into a swing bed tomorrow, PT/OT currently with patient (9) Chronic back pain: Code(s): M54.9 - Dorsalgia, unspecified; G89.29 - Other chronic pain Status: Acute Assessment and Plan: Continue gabapentin, Lasara and added lidocaine patch Recent CT of the cervical spine dated back to 07/22/2020 indicates no acute cervical findings 07/31/2020 continue as noted above, at this time patient has no complaints of back pain or neck pain Subjective Date/time seen: 07/31/20 07:54Patient states he is feeling okay today with the exception of feeling a little bit tired. He does admit to having loose stools in the form of diarrhea. Order put in for C diff stool. On palpation of abdomen patient complains of a little bit of middle abdominal pain. Patient has no other concerns at this time. Review of Systems Constitutional: Constitutional: Reports no additional constitutional complaints and Reports weakness Cardiovascular: Cardiovascular: Reports no additional cardiovascular complaints, Denies chest pain, Denies chest pain at rest and Denies chest pain with activity Respiratory: Respiratory: Reports no additional respiratory complaints, Denies dyspnea and Denies dyspnea on exertion Gastrointestinal: Gastrointestinal: Reports abdominal pain (As noted in the HPI, mild pain) Musculoskeletal: Musculoskeletal: Reports muscle weakness Neurologic: Reports system reviewed and no additional complaints, except as documented Exam Const: General: cooperative, no acute distress, alert and awake N
[2020-07-31] MEDS: SODIUM CHLORIDE 0.9% IV 250 ML 30 ML IV CONT (09:46)
[2020-07-31] MEDS: ESCITALOPRAM OXALATE 10 MG TABLET 20 MG PO (09:47)
[2020-07-31] MEDS: PANTOPRAZOLE 40 MG TABLET PO (09:48)
[2020-07-31] MEDS: MEGESTROL ACETATE (*CHEMO) 40 MG TABLET 20 MG PO (09:48)
[2020-07-31] MEDS: LIDOCAINE 5% PATCH 1 PATCH TRANSDERM (09:48)
[2020-07-31 12:16] LABS: Hematocrit 23.9 % (37.0-46.0); Hemoglobin 7.7 g/dL (12.4-15.3)
[2020-07-31 18:52] LABS: Hematocrit 27.3 % (37.0-46.0); Hemoglobin 8.8 g/dL (12.4-15.3)
--- NOTE | 2020-07-31 20:00 | PC.NURSE ---
No stool at this time, unable to collect sample, denies pain at rest, fluids infusing
[2020-07-31] MEDS: traZODone HCL 25 MG TABLET PO (20:50)
[2020-07-31] MEDS: MONTELUKAST SODIUM 10 MG TABLET PO (20:50)
[2020-08-01] VITALS: BP 121/49; PULSE 80; RESP 18; TEMP 37.7; O2SAT 93
[2020-08-01] MEDS: GABAPENTIN 400 MG CAPSULE 800 MG PO ×6 (01:10→21:00)
[2020-08-01] MEDS: SODIUM CHLORIDE 0.9% IV 1,000 ML 100 ML IV CONT (04:10)
[2020-08-01 05:24] LABS: Hematocrit 26.2 % (37.0-46.0); Hemoglobin 8.5 g/dL (12.4-15.3); Mean Corpuscular HGB Conc 32.4 g/dL (32.0-36.0); Mean Corpuscular Hemoglobin 31.8 pg (27.0-31.0); Mean Corpuscular Volume 98.1 fL (78.0-102.0); Mean Platelet Volume 12.8 fl (8.7-11.0); Platelet Count Result 117 K/mm3 (150-420); Red Blood Count 2.67 M/mm3 (4.70-6.10); Red Cell Distribution Width 21.5 % (11.6-14.4)
[2020-08-01 05:30] LABS: Anion Gap 8 mmol/L (8-16); Blood Urea Nitrogen 13 mg/dL (7-18); Calcium 8.1 mg/dL (8.5-10.1); Carbon Dioxide 27 mmol/L (21-32); Chloride 106 mmol/L (98-108); Estimated CRCL calculation 69 ml/min; Estimated Glomerular Filt Rate > 60; Glucose 121 mg/dL (70-99); Osmolality Calculated 293 mOsm/kg (285-295); Potassium 3.6 mmol/L (3.5-5.1); Sodium 141 mmol/L (136-145)
--- NOTE | 2020-08-01 05:40 | PC.NURSE ---
Pt. assisted to rollover in bed, gown changed, wet p spilling water on floor. Pt. seems lethargic but is alert and able to comprehend and follows commands. Call cain in reach and re-educated to call for assistance if needed. Pt. verbalizes understanding.
[2020-08-01 08:00] VITALS: BP 132/54; PULSE 68; RESP 18; TEMP 37.3; O2SAT 95
--- NOTE | 2020-08-01 08:00 | PC.NURSE ---
Patient requested bedtime snack. Ice cream and esther crackers given. Also drank 200 mls of diet soda
[2020-08-01] MEDS: PANTOPRAZOLE 40 MG TABLET PO (09:39)
[2020-08-01] MEDS: MEGESTROL ACETATE (*CHEMO) 40 MG TABLET 20 MG PO (09:39)
[2020-08-01] MEDS: ESCITALOPRAM OXALATE 10 MG TABLET 20 MG PO (09:39)
[2020-08-01] MEDS: LIDOCAINE 5% PATCH 2 PATCH TRANSDERM (09:40)
--- NOTE | 2020-08-01 12:12 | P.PNIM_ITS ---
Progress Note: A&P Assessment and Plan (1) Acute dehydration: Code(s): E86.0 - Dehydration <Buzz CantuSILVANAC - Last Filed: 08/01/20 12:33> Status: Acute <Buzz CantuSILVANAC - Last Filed: 08/01/20 12:33> Assessment and Plan: * Continue IV hydration 07/31/2020 continue with patient will saline 100 mL/hr, vital signs stable, patient currently getting 2 units PRBCs 08/01/2020 encourage patient to take in more oral fluids, patient has decreased appetite, will start D5 normal saline, patient's hydration status has improved <Buzz FernandezMARLENI richardson-C - Last Filed: 08/01/20 12:33> (2) Adult failure to thrive: Code(s): R62.7 - Adult failure to thrive <Buzz CantuSILVANAC - Last Filed: 08/01/20 12:33> Status: Acute <Buzz CantuSILVANAC - Last Filed: 08/01/20 12:33> Assessment and Plan: * Added supplementary nutrition * Added my Megace 07/31/2020 at this time patient's appetite is still low, continue with Megace, encourage patient to eat, once blood transfusion has completed anticipate patient having a little more energy and hopefully increased appetite 08/01/2020 continue with Megace, patient appears little better today than yesterday though he states no change, appetite has not improved, encourage p.o. fluids, started on D5 normal saline 75 mL/h <Buzz FernandezROSIBEL richardson - Last Filed: 08/01/20 12:33> (3) Encounter for blood transfusion: Code(s): Z51.89 - Encounter for other specified aftercare <Buzz FernandezSILVANA richardsonC - Last Filed: 08/01/20 12:33> Status: Acute <Buzz FernandezROSIBEL richardson - Last Filed: 08/01/20 12:33> Assessment and Plan: * Monitor hemoglobin and hematocrit * Will transfuse with hemoglobin less than 7 * Will collect type and screen in the a.m. 07/31/2020 1248 hours patient received 1 unit PRBCs 2nd one to follow, no Lasix will be given after infusion as patient is here for dehydration, will check H&H at least 1-1/2 hour post 2nd PRBC transfusion. 08/01/2020 post transfusion H&H increased today slight decrease 8.5/26.2, will continue to monitor <Buzz Cantu MAITRE D'-C - Last Filed: 08/01/20 12:33> (4) Chronic anemia: Code(s): D64.9 - Anemia, unspecified <Buzz Cantu MAITRE D'-C - Last Filed: 08/01/20 12:33> Status: Acute <Buzz Cantu, MAITRE D'-C - Last Filed: 08/01/20 12:33> Assessment and Plan: * Monitor hemoglobin and hematocrit * Will transfuse with hemoglobin less than 7 * Will collect type and screen in the a.m. * No active bleeding noted * 07/31/2020 07/31/2020 as noted above under encounter for blood transfusion 08/01/2020 refer to encounter for blood transfusion above <Buzz ReesLesia Cantu MAITRE D'-C - Last Filed: 08/01/20 12:33> (5) Depression: Code(s): F32.9 - Major depressive disorder, single episode, unspecified <Buzz ReesLesia Jimdebra MAITRE D'-C - Last Filed: 08/01/20 12:33> Status: Acute <Buzz Cantu MAITRE D'-C - Last Filed: 08/01/20 12:33> Assessment and Plan: * Continue Lexapro * amitriptyline and buspirone on hold 07/31/2020 continue as noted above 08/01/2020 no changes at this time <Buzz ReesLesia Jimdebra MAITRE D'-C - Last Filed: 08/01/20 12:33> (6) Myelodysplasia (myelodysplastic syndrome): Code(s): D46.9 - Myelodysplastic syndrome, unspecified <Buzz ReesLesia Jimdebra MAITRE D'- C - Last Filed: 08/01/20 12:33> Status: Acute <Buzz Laverne Fernandezdebra, MAITRE D'-C - Last Filed: 08/01/20 12:33> Assessment and Plan: * Continue to monitor CBC * Follow-up with oncologist medical technologist chief 08/01/2020 in addition t
--- NOTE | 2020-08-01 12:12 | PM.IMPN ---
Progress Note: A&P Assessment and Plan (1) Acute dehydration: Code(s): E86.0 - Dehydration <Buzz CantuROSIBEL - Last Filed: 08/01/20 12:33> Status: Acute <Buzz CantuSILVANAC - Last Filed: 08/01/20 12:33> Assessment and Plan: Continue IV hydration 07/31/2020 continue with patient will saline 100 mL/hr, vital signs stable, patient currently getting 2 units PRBCs 08/01/2020 encourage patient to take in more oral fluids, patient has decreased appetite, will start D5 normal saline, patient's hydration status has improved <Buzz FernandezMARLENI richardson-C - Last Filed: 08/01/20 12:33> (2) Adult failure to thrive: Code(s): R62.7 - Adult failure to thrive <Buzz CantuSILVANAC - Last Filed: 08/01/20 12:33> Status: Acute <Buzz CantuSILVANAC - Last Filed: 08/01/20 12:33> Assessment and Plan: Added supplementary nutrition Added my Megace 07/31/2020 at this time patient's appetite is still low, continue with Megace, encourage patient to eat, once blood transfusion has completed anticipate patient having a little more energy and hopefully increased appetite 08/01/2020 continue with Megace, patient appears little better today than yesterday though he states no change, appetite has not improved, encourage p.o. fluids, started on D5 normal saline 75 mL/h <Buzz CantuSILVANAC - Last Filed: 08/01/20 12:33> (3) Encounter for blood transfusion: Code(s): Z51.89 - Encounter for other specified aftercare <Buzz FernandezSILVANA richardsonC - Last Filed: 08/01/20 12:33> Status: Acute <Buzz CantuROSIBEL - Last Filed: 08/01/20 12:33> Assessment and Plan: Monitor hemoglobin and hematocrit Will transfuse with hemoglobin less than 7 Will collect type and screen in the a.m. 07/31/2020 1248 hours patient received 1 unit PRBCs 2nd one to follow, no Lasix will be given after infusion as patient is here for dehydration, will check H&H at least 1-1/2 hour post 2nd PRBC transfusion. 08/01/2020 post transfusion H&H increased today slight decrease 8.5/26.2, will continue to monitor <Buzz Cantu MANAGER INTEGRATED-C - Last Filed: 08/01/20 12:33> (4) Chronic anemia: Code(s): D64.9 - Anemia, unspecified <Buzz Cantu MANAGER [employer]GRATED-C - Last Filed: 08/01/20 12:33> Status: Acute <Buzz Laverne Cantu, MANAGER [employer]TEGRATED-C - Last Filed: 08/01/20 12:33> Assessment and Plan: Monitor hemoglobin and hematocrit Will transfuse with hemoglobin less than 7 Will collect type and screen in the a.m. No active bleeding noted 07/31/2020 07/31/2020 as noted above under encounter for blood transfusion 08/01/2020 refer to encounter for blood transfusion above <Buzz ReesLesia Cantu MANAGER [employer]GRATED-C - Last Filed: 08/01/20 12:33> (5) Depression: Code(s): F32.9 - Major depressive disorder, single episode, unspecified <Buzz Cantu MANAGER [employer]GRATED-C - Last Filed: 08/01/20 12:33> Status: Acute <Buzz Cantu MANAGER INTEGRATED-C - Last Filed: 08/01/20 12:33> Assessment and Plan: Continue Lexapro amitriptyline and buspirone on hold 07/31/2020 continue as noted above 08/01/2020 no changes at this time <Buzz ReesLesia Cantu MANAGER [employer]TEGRATED-C - Last Filed: 08/01/20 12:33> (6) Myelodysplasia (myelodysplastic syndrome): Code(s): D46.9 - Myelodysplastic syndrome, unspecified <Buzz ReesLesia Cantu MANAGER [employer]TEGRATED-C - Last Filed: 08/01/20 12:33> Status: Acute <Buzz NegritaLesia Jimdebra MANAGER [employer]TEGRATED-C - Last Filed: 08/01/20 12:33> Assessment and Plan: Continue to monitor CBC Follow-up with oncologist engine setter 08/01/2020 in addition to follow-up with oncologist and engine setter same as per above and encounter for blood transfusion above <Buzz NegritaLesia Vodebra, MANAGER [employer]GRATED-C - Last Filed: 08/01/20 12:33> (7) GERD without esophagitis: Code(s): K21.9 - Gastro-esophageal reflux disease without esophagitis <ROSIBEL Pina - Last Filed: 08/01/20 12:33> Status:
[2020-08-01] MEDS: DEXTROSE 5%/0.9% SOD CHL 1,000 ML 75 ML IV CONT (14:44)
[2020-08-01 16:00] VITALS: BP 126/48; PULSE 66; RESP 16; TEMP 37.2; O2SAT 96
[2020-08-01] MEDS: HYDROcodone/acetaminophen (*CRX) 10-325 MG TABLET 1 TAB PO (17:02)
--- NOTE | 2020-08-01 19:20 | PM.EVENT ---
Event Note Event Note Event Note: I have examined the patient and reviewed the chart. I discussed the patient's care with Negrita Cantu APN and agree with his assessment and plan.
[2020-08-01] MEDS: MONTELUKAST SODIUM 10 MG TABLET PO (21:00)
[2020-08-01] MEDS: ACETAMINOPHEN 325 MG TABLET 650 MG PO (21:13)
[2020-08-01] MEDS: traZODone HCL 25 MG TABLET PO (21:15)
[2020-08-01 23:45] VITALS: BP 124/48; PULSE 67; RESP 18; TEMP 36; O2SAT 93
--- NOTE | 2020-08-02 00:27 | PC.NURSE ---
2330 pt awake using urinal. no complaints voiced at this time. repositioned in bed. call cain in reach.
--- NOTE | 2020-08-02 01:21 | PC.NURSE ---
pt sleeping. left undisturbed.
[2020-08-02] MEDS: GABAPENTIN 400 MG CAPSULE 800 MG PO ×5 (02:45→16:07)
--- NOTE | 2020-08-02 05:51 | PC.NURSE ---
pt sleeping. easily aroused for medication. no concerns or needs at this time.
[2020-08-02 06:02] LABS: Hematocrit 22.7 % (37.0-46.0); Hemoglobin 7.3 g/dL (12.4-15.3); Mean Corpuscular HGB Conc 32.2 g/dL (32.0-36.0); Mean Corpuscular Hemoglobin 31.9 pg (27.0-31.0); Mean Corpuscular Volume 99.1 fL (78.0-102.0); Mean Platelet Volume 12.1 fl (8.7-11.0); Platelet Count Result 102 K/mm3 (150-420); Red Blood Count 2.29 M/mm3 (4.70-6.10); Red Cell Distribution Width 21.3 % (11.6-14.4); White Blood Count 3.1 K/mm3 (4.8-10.8)
[2020-08-02 06:24] LABS: Alanine Aminotransferase 26 U/L (16-63); Albumin Level 2.6 g/dL (3.4-5.0); Alkaline Phosphatase 75 U/L (46-116); Anion Gap 6 mmol/L (8-16); Aspartate Amino Transferase 17 U/L (15-37); Bilirubin,Total 0.5 mg/dL (0.00-1.00); Blood Urea Nitrogen 14 mg/dL (7-18); Calcium 7.8 mg/dL (8.5-10.1); Carbon Dioxide 28 mmol/L (21-32); Chloride 110 mmol/L (98-108); Estimated CRCL calculation 78 ml/min; Estimated Glomerular Filt Rate > 60; Glucose 133 mg/dL (70-99); Osmolality Calculated 300 mOsm/kg (285-295); Potassium 3.9 mmol/L (3.5-5.1); Sodium 144 mmol/L (136-145); Total Protein 4.4 g/dL (6.4-8.2)
--- NOTE | 2020-08-02 06:58 | PC.NURSE ---
report to BESSY Kirkland
[2020-08-02 07:47] VITALS: BP 105/34; PULSE 68; RESP 18; TEMP 37.3; O2SAT 93
[2020-08-02] MEDS: MEGESTROL ACETATE (*CHEMO) 40 MG TABLET 20 MG PO (09:17)
[2020-08-02] MEDS: LIDOCAINE 5% PATCH 2 PATCH TRANSDERM (09:17)
[2020-08-02] MEDS: PANTOPRAZOLE 40 MG TABLET PO (09:18)
[2020-08-02] MEDS: ESCITALOPRAM OXALATE 10 MG TABLET 20 MG PO (09:18)
--- NOTE | 2020-08-02 12:55 | PC.NURSE ---
Assisted up to bathroom to void with use of walker, tolerated well, no pain in back feels good to stand, got to bathroom and patient reports he is good, door shut, heard a loud noise and found patient on floor half in the shower, pain in right hip, assisted up to WC then to bed, pain in right hip with movement, hospitalist aware and orders received
--- NOTE | 2020-08-02 12:58 | P.PN_ITS ---
Progress Note: A&P Assessment and Plan (1) Acute dehydration: Code(s): E86.0 - Dehydration <STU PettyP-C - Last Filed: 08/02/20 13:13> Status: Acute <STU PettyP-C - Last Filed: 08/02/20 13:13> Assessment and Plan: * Resolved * Continue IV hydration <Murphy Odonnell GRANULATOR-C - Last Filed: 08/02/20 13:13> (2) Adult failure to thrive: Code(s): R62.7 - Adult failure to thrive <Murphy Odonnell GRANULATOR-C - Last Filed: 08/02/20 13:13> Status: Acute <Murphy Odonnell GRANULATOR-C - Last Filed: 08/02/20 13:13> Assessment and Plan: * Appetite has improved * Added supplementary nutrition * Added my Megace <Murphy Odonnell GRANULATOR-C - Last Filed: 08/02/20 13:13> (3) Encounter for blood transfusion: Code(s): Z51.89 - Encounter for other specified aftercare <Murphy Odonnell GRANULATOR-C - Last Filed: 08/02/20 13:13> Status: Acute <Murphy Odonnell GRANULATOR-C - Last Filed: 08/02/20 13:13> Assessment and Plan: * Monitor hemoglobin and hematocrit * Will transfuse with hemoglobin less than 7 * Will collect type and screen in the a.m. <Murphy Odonnell GRANULATOR-C - Last Filed: 08/02/20 13:13> (4) Chronic anemia: Code(s): D64.9 - Anemia, unspecified <Murphy Odonnell GRANULATOR-C - Last Filed: 08/02/20 13:13> Status: Acute <Murphy Odonnell GRANULATOR-C - Last Filed: 08/02/20 13:13> Assessment and Plan: * Monitor hemoglobin and hematocrit * Will transfuse with hemoglobin less than 7 * No active bleeding noted <Murphy Odonnell GRANULATOR-C - Last Filed: 08/02/20 13:13> (5) Depression: Code(s): F32.9 - Major depressive disorder, single episode, unspecified <Murphy Odonnell GRANULATOR-C - Last Filed: 08/02/20 13:13> Status: Acute <Murphy Odonnell GRANULATOR-C - Last Filed: 08/02/20 13:13> Assessment and Plan: * Continue Lexapro * amitriptyline and buspirone on hold <Murphy Odonnell GRANULATOR-C - Last Filed: 08/02/20 13:13> (6) Myelodysplasia (myelodysplastic syndrome): Code(s): D46.9 - Myelodysplastic syndrome, unspecified <Murphy Odonnell GRANULATOR-C - Last Filed: 08/02/20 13:13> Status: Acute <Murphy Odonnell GRANULATOR-C - Last Filed: 08/02/20 13:13> Assessment and Plan: * Continue to monitor CBC * Follow-up with oncologist line cook <Murphy DaoLesia BlasJOSEC - Last Filed: 08/02/20 13:13> (7) GERD without esophagitis: Code(s): K21.9 - Gastro-esophageal reflux disease without esophagitis <Murphy Odonnell GRANULATOR-C - Last Filed: 08/02/20 13:13> Status: Acute <Murphy Odonnlel GRANULATOR-C - Last Filed: 08/02/20 13:13> Assessment and Plan: * Continue Protonix <Murphy Odonnell GRANULATOR-C - Last Filed: 08/02/20 13:13> (8) Weakness: Code(s): R53.1 - Weakness <Murphy Odonnell GRANULATOR-C - Last Filed: 08/02/20 13:13> Status: Acute <Murphy Odonnell GRANULATOR-C - Last Filed: 08/02/20 13:13> Assessment and Plan: * PT OT evaluated * Will discharge to a SNF follow up with your provider within 1-2 weeks <Murphy OdonnellKEVIN-C - Last Filed: 08/02/20 13:13> (9) Chronic back pain: Code(s): M54.9 - Dorsalgia, unspecified; G89.29 - Other chronic pain <Murphy Dao. BERTHA Odonnell - Last Filed: 08/02/20 13:13> Status: Acute <BERTHA Petty - Last Filed: 08/02/20 13:13> Assessment and Plan: * Continue gabapentin, [place] and added lidocaine patch * Recent CT of the cervical spine dated back to 07/22/2020 indicates no acut
--- NOTE | 2020-08-02 12:58 | WPDPN ---
Progress Note: A&P Assessment and Plan (1) Acute dehydration: Code(s): E86.0 - Dehydration <Murphy Odonnell PT SKILLED-C - Last Filed: 08/02/20 13:13> Status: Acute <Murphy Odonnell PT SKILLED-C - Last Filed: 08/02/20 13:13> Assessment and Plan: Resolved Continue IV hydration <Murphy Odonnell PT SKILLED-C - Last Filed: 08/02/20 13:13> (2) Adult failure to thrive: Code(s): R62.7 - Adult failure to thrive <Murphy Odonnell PT SKILLED-C - Last Filed: 08/02/20 13:13> Status: Acute <Murphy Odonnell PT SKILLED-C - Last Filed: 08/02/20 13:13> Assessment and Plan: Appetite has improved Added supplementary nutrition Added my Megace <Murphy aRmon Bals PT SKILLED-C - Last Filed: 08/02/20 13:13> (3) Encounter for blood transfusion: Code(s): Z51.89 - Encounter for other specified aftercare <Murphy Odonnell PT SKILLED-C - Last Filed: 08/02/20 13:13> Status: Acute <Murphy Odonnell PT SKILLED-C - Last Filed: 08/02/20 13:13> Assessment and Plan: Monitor hemoglobin and hematocrit Will transfuse with hemoglobin less than 7 Will collect type and screen in the a.m. <Murphy DaoLesia Odonnell PT SKILLED-C - Last Filed: 08/02/20 13:13> (4) Chronic anemia: Code(s): D64.9 - Anemia, unspecified <Murphy Odonnell PT SKILLED-C - Last Filed: 08/02/20 13:13> Status: Acute <Murphy Odonnell PT SKILLED-C - Last Filed: 08/02/20 13:13> Assessment and Plan: Monitor hemoglobin and hematocrit Will transfuse with hemoglobin less than 7 No active bleeding noted <Murphy DaoLesia Odonnell PT SKILLED-C - Last Filed: 08/02/20 13:13> (5) Depression: Code(s): F32.9 - Major depressive disorder, single episode, unspecified <Murphy SylwiaKEVIN Mccrary-C - Last Filed: 08/02/20 13:13> Status: Acute <Murphy Ramon KEVIN Odonnell-C - Last Filed: 08/02/20 13:13> Assessment and Plan: Continue Lexapro amitriptyline and buspirone on hold <Murphy Ramon KEVIN Odonnell-C - Last Filed: 08/02/20 13:13> (6) Myelodysplasia (myelodysplastic syndrome): Code(s): D46.9 - Myelodysplastic syndrome, unspecified <Murphy OdonnellKEVIN-C - Last Filed: 08/02/20 13:13> Status: Acute <Murphy Ramon KEVIN Odonnell-C - Last Filed: 08/02/20 13:13> Assessment and Plan: Continue to monitor CBC Follow-up with oncologist multifold operator <BryceKEVIN [place]-C - Last Filed: 08/02/20 13:13> (7) GERD without esophagitis: Code(s): K21.9 - Gastro-esophageal reflux disease without esophagitis <Murphy DaoKEVIN Mccrary-C - Last Filed: 08/02/20 13:13> Status: Acute <Murphy DaoKEVIN Mccrary-C - Last Filed: 08/02/20 13:13> Assessment and Plan: Continue Protonix <Murphy Ramon KEVIN Odonnell-C - Last Filed: 08/02/20 13:13> (8) Weakness: Code(s): R53.1 - Weakness <Murphy DaoKEVIN Mccrary-C - Last Filed: 08/02/20 13:13> Status: Acute <Murphy DaoKEVIN Mccrary-C - Last Filed: 08/02/20 13:13> Assessment and Plan: PT OT evaluated Will discharge to a SNF follow up with your provider within 1-2 weeks <KEVIN Petty-C - Last Filed: 08/02/20 13:13> (9) Chronic back pain: Code(s): M54.9 - Dorsalgia, unspecified; G89.29 - Other chronic pain <KEVIN Petty-C - Last Filed: 08/02/20 13:13> Status: Acute <BERTHA Petty - Last Filed: 08/02/20 13:13> Assessment and Plan: Continue gabapentin, [place] and added lidocaine patch Recent CT of the cervical spine dated back to 07/22/2020 indicates no acute cervical findings <BERTHA Petty - Last Filed: 08/02/20 13:13> (10) Hip pain: Code(s): M25.559 - Pain in unspecified hip <BERTHA Petty - Last Filed: 08/02/20 13:13> Status: Acute <BERTHA Petty - Last Filed: 08/02/20 13:13> Assessment and Plan: Right hip pain status post fall X-ray of the h
--- NOTE | 2020-08-02 13:23 | PC.NURSE ---
Imaging completed on patients hip and femur
--- NOTE | 2020-08-02 13:26 | PC.NURSE ---
Assisted to position with pillows for comfort
--- NOTE | 2020-08-02 14:07 | PC.NURSE ---
Transfer packet started, awaiting bed at [facility] for repair of fx hip
--- NOTE | 2020-08-02 14:09 | PC.NURSE ---
No beds at [facility], to speak with daughter to find out where she would like to try next for transfer
[2020-08-02] MEDS: ONDANSETRON INJ 4 MG/2 ML VIAL IV PUSH (14:43)
[2020-08-02] MEDS: HYDROmorphone HCL INJ (*CRX) 2 MG/ML VIAL 0.5 MG IV PUSH ×2 (14:43→19:14)
--- NOTE | 2020-08-02 14:48 | PC.NURSE ---
dilaudid for pain and zofran given to prevent nausea from painmed
--- NOTE | 2020-08-02 15:01 | P.TS_ITS ---
Transfer Discharge Sum: Prov Provider Date of admission: 07/31/20 14:09 <KEVIN Petty-C - Last Filed: 08/02/20 17:12> Primary care physician: Jluis Luu MD <BERTHA Petty - Last Filed: 08/02/20 17:12> Admitting clinician: Sam Ryder DO <BERTHA Petty - Last Filed: 08/02/20 17:12> Consults: 07/30/20 Care Coordination Consult Routine Comment: possible swing bed. Lives along. Reason for Consult:: Other <BERTHA Petty - Last Filed: 08/02/20 17:12> DS: Admitting Diagnosis Admitting Diagnosis Admitting Diagnosis: dehydration <BERTHA Petty - Last Filed: 08/02/20 17:12> DS: Discharge Diagnosis Discharge Diagnosis (1) Acute dehydration: Code(s): E86.0 - Dehydration <BERTHA Petty - Last Filed: 08/02/20 17:12> Status: Acute <KEVIN Petty-C - Last Filed: 08/02/20 17:12> Assessment and Plan: * Resolved * <BERTHA Petty - Last Filed: 08/02/20 17:12> (2) Adult failure to thrive: Code(s): R62.7 - Adult failure to thrive <BERTHA Petty - Last Filed: 08/02/20 17:12> Status: Acute <KEVIN Petty-C - Last Filed: 08/02/20 17:12> Assessment and Plan: * Appetite has improved * Continue thank you supplementary nutrition * Continue Megace <BERTHA Petty - Last Filed: 08/02/20 17:12> (3) Encounter for blood transfusion: Code(s): Z51.89 - Encounter for other specified aftercare <KEVIN Petty-C - Last Filed: 08/02/20 17:12> Status: Acute <KEVIN Petty-C - Last Filed: 08/02/20 17:12> Assessment and Plan: * Monitor hemoglobin and hematocrit * Will transfuse with hemoglobin less than 7 <Murphy Odonnell KEVIN-C - Last Filed: 08/02/20 17:12> (4) Chronic anemia: Code(s): D64.9 - Anemia, unspecified <Murphy Odonnell REPRODUCTIVE ENDOCRINOLOGIST-C - Last Filed: 08/02/20 17:12> Status: Acute <Murphy Odonnell REPRODUCTIVE ENDOCRINOLOGIST-C - Last Filed: 08/02/20 17:12> Assessment and Plan: * Monitor hemoglobin and hematocrit * Will transfuse with hemoglobin less than 7 * No active bleeding noted <Murphy Odonnell REPRODUCTIVE ENDOCRINOLOGIST-C - Last Filed: 08/02/20 17:12> (5) Depression: Code(s): F32.9 - Major depressive disorder, single episode, unspecified <Murphy Odonnell REPRODUCTIVE ENDOCRINOLOGIST-C - Last Filed: 08/02/20 17:12> Status: Acute <Murphy Odonnell KEVIN-C - Last Filed: 08/02/20 17:12> Assessment and Plan: * Continue Lexapro * amitriptyline and buspirone on hold <Murphy Odonnell REPRODUCTIVE ENDOCRINOLOGIST-C - Last Filed: 17:12> (6) Myelodysplasia (myelodysplastic syndrome): Code(s): D46.9 - Myelodysplastic syndrome, unspecified <Murphy Odonnell KEVIN-C - Last Filed: 08/02/20 17:12> Status: Acute <Murphy Odonnell KEVIN-C - Last Filed: 08/02/20 17:12> Assessment and Plan: * Continue to monitor CBC * Follow-up with oncologist telephone switchboard operator <Murphy Odonnell REPRODUCTIVE ENDOCRINOLOGIST-C - Last Filed: 08/02/20 17:12> (7) GERD without esophagitis: Code(s): K21.9 - Gastro-esophageal reflux disease without esophagitis <Murphy Odonnell REPRODUCTIVE ENDOCRINOLOGIST-C - Last Filed: 08/02/20 17:12> Status: Acute <Murphy Odonnell REPRODUCTIVE ENDOCRINOLOGIST-C - Last Filed: 08/02/20 17:12> Assessment and Plan: * Continue Protonix <STU PettyP-C - Last Filed: 08/02/20 17:12> (8) Weakness: Code(s): R53.1 - Weakness <S
--- NOTE | 2020-08-02 15:01 | PM.TDS ---
Transfer Discharge Sum: Prov Provider Date of admission: 07/31/20 14:09 <JOSE PettyC - Last Filed: 08/02/20 17:12> Primary care physician: Jluis Luu MD <BERTHA Petty - Last Filed: 08/02/20 17:12> Admitting clinician: Sam Ryder DO <BERTHA Petty - Last Filed: 08/02/20 17:12> Consults: 07/30/20 Care Coordination Consult Routine Comment: possible swing bed. Lives along. Reason for Consult:: Other <BERTHA Petty - Last Filed: 08/02/20 17:12> DS: Admitting Diagnosis Admitting Diagnosis Admitting Diagnosis: dehydration <BERTHA Petty - Last Filed: 08/02/20 17:12> DS: Discharge Diagnosis Discharge Diagnosis (1) Acute dehydration: Code(s): E86.0 - Dehydration <BERTHA Petty - Last Filed: 08/02/20 17:12> Status: Acute <JOSE PettyC - Last Filed: 08/02/20 17:12> Assessment and Plan: Resolved <KEVIN Petty-C - Last Filed: 08/02/20 17:12> (2) Adult failure to thrive: Code(s): R62.7 - Adult failure to thrive <BERTHA Petty - Last Filed: 08/02/20 17:12> Status: Acute <JOSE PettyC - Last Filed: 08/02/20 17:12> Assessment and Plan: Appetite has improved Continue thank you supplementary nutrition Continue Megace <BERTHA Petty - Last Filed: 08/02/20 17:12> (3) Encounter for blood transfusion: Code(s): Z51.89 - Encounter for other specified aftercare <JOSE PettyC - Last Filed: 08/02/20 17:12> Status: Acute <KEVIN Petty-Cong - Last Filed: 08/02/20 17:12> Assessment and Plan: Monitor hemoglobin and hematocrit Will transfuse with hemoglobin less than 7 <Murphy Odonnell ADJUNCT PROFESSOR OF LAW-C - Last Filed: 08/02/20 17:12> (4) Chronic anemia: Code(s): D64.9 - Anemia, unspecified <Murphy Odonnell ADJUNCT PROFESSOR OF LAW-C - Last Filed: 08/02/20 17:12> Status: Acute <Murphy Odonnell ADJUNCT PROFESSOR OF LAW-C - Last Filed: 08/02/20 17:12> Assessment and Plan: Monitor hemoglobin and hematocrit Will transfuse with hemoglobin less than 7 No active bleeding noted <Murphy Odonnell ADJUNCT PROFESSOR OF LAW-C - Last Filed: 08/02/20 17:12> (5) Depression: Code(s): F32.9 - Major depressive disorder, single episode, unspecified <Murphy OdonnellKEVIN-C - Last Filed: 08/02/20 17:12> Status: Acute <Murphy OdonnellKEVIN-C - Last Filed: 08/02/20 17:12> Assessment and Plan: Continue Lexapro amitriptyline and buspirone on hold <Murphy OdonnellKEVIN-C - Last Filed: 08/02/20 17:12> (6) Myelodysplasia (myelodysplastic syndrome): Code(s): D46.9 - Myelodysplastic syndrome, unspecified <Murphy OdonnellKEVIN-C - Last Filed: 08/02/20 17:12> Status: Acute <Murphy OdonnellKEVIN-C - Last Filed: 08/02/20 17:12> Assessment and Plan: Continue to monitor CBC Follow-up with oncologist lap layer <Murphy DaoKEVIN Mccrary-C - Last Filed: 08/02/20 17:12> (7) GERD without esophagitis: Code(s): K21.9 - Gastro-esophageal reflux disease without esophagitis <Murphy DaoKEVIN Mccrary-C - Last Filed: 08/02/20 17:12> Status: Acute <Murphy OdonnellKEVIN-C - Last Filed: 08/02/20 17:12> Assessment and Plan: Continue Protonix <Murphy DaoBERTHA Mccrary - Last Filed: 08/02/20 17:12> (8) Weakness: Code(s): R53.1 - Weakness <BERTHA Petty - Last Filed: 08/02/20 17:12> Status: Acute <BERTHA Petty - Last Filed: 08/02/20 17:12> Assessment and Plan: PT OT evaluated Will discharge to a SNF follow up with your provider within 1-2 weeks <BERTHA Petty - Last Filed: 08/02/20 17:12> (9) Chronic back pain: Code(s): M54.9 - Dorsalgia, unspecified; G89.29 - Other chronic pain <Murphy Odonnell
[2020-08-02 16:00] VITALS: BP 134/77; PULSE 79; RESP 16; TEMP 36.8; O2SAT 98
[2020-08-02] MEDS: HYDROcodone/acetaminophen (*CRX) 10-325 MG TABLET 1 TAB PO (16:07)
--- NOTE | 2020-08-02 16:30 | PC.NURSE ---
DAUGHTER AT BEDSIDE, UNDECIDED REGARDING TRANSFER TO [facility], FAMILY PREFERS [facility] HOWEVER HAVE BEEN INFORMED, NO BED AVAILABILITY AT THIS TIME. AWARE OF POSSIBILITY OF LOSING AVAILABLE BED AT [facility] IN MEANTIME. PT REPOSITIONED, PAIN MEDICATIONS GIVEN, ICE PACK APPLIED TO LEFT HIP FOR COMFORT.
--- NOTE | 2020-08-02 18:32 | PC.NURSE ---
DAUGHTER TO NURSES STATION, STATES SHE HAS NOT HEARD BACK FROM BROTHER, AND TO GO AHEAD AND SEND PATIENT TO [facility] AT THIS TIME. CALLED [facility] TO ENSURE BED AVAILABILITY, SPOKE TO RECEPTION INTERVIEWER, MARI, STATES, YES, PATIENT WILL BE GOING TO ROOM 258, WITH NURSE ZECHARIAH, CALL REPORT TO [phone].
--- NOTE | 2020-08-02 19:20 | PC.NURSE ---
[facility] ARRIVED AND PT TRANSFERRED TO [facility] WITH MINIMAL REPORT OF DISCOMFORT, IV DILAUDID GIVEN PRIOR TO TRANSFER, ALL BELONGINGS EXCEPT DENTURES SENT HOME WITH DAUGHTER [place]. DAUGHTER UPDATED ON PATIENT ROOM NUMBER 258 AND PHONE NUMBER TO NURSING UNIT.
--- NOTE | 2020-08-02 19:23 | PC.NURSE ---
[facility] here to transport patient to [facility] ortho services. Patient tired, daughter took belongings.
[2020-08-02 23:36] LABS: SARS-CoV-2 RNA PCR Negative
== END 2020-08-02 18:20 | disposition short-term general hospital (02) | DRG 641 ==
LOC: CHSED 11:45 → CHS2ND 11:48
PROVIDERS: Emergency Medicine; Nurse Practitioner; Nurse Practitioner Family; Admitting Provider Family Medicine; Emergency Provider Family Medicine; PCP Internal Medicine; Visit Provider Family Medicine
DX: E86.0 Dehydration (principal); S72.141A Displaced intertrochanteric fracture of right femur, initial encounter for closed fracture; R62.7 Adult failure to thrive; W18.11XA Fall from or off toilet without subsequent striking against object, initial encounter; R53.1 Weakness; D46.9 Myelodysplastic syndrome, unspecified; K21.9 Gastro-esophageal reflux disease without esophagitis; M54.9 Dorsalgia, unspecified; G89.29 Other chronic pain; F32.9 Major depressive disorder, single episode, unspecified; Z20.828 Contact with and (suspected) exposure to other viral communicable diseases; Z87.891 Personal history of nicotine dependence; Y92.231 Patient bathroom in hospital as the place of occurrence of the external cause
CPT/HCPCS: 36415; 36430; 73501; 73552; 80048; 80053; 81001; 83880; 84484; 85014; 85018; 85025; 85027; 86850; 86900; 86901; 86923; 87635; 93005; 96360; 96361; 97110; 97161; 97165; 97530; 97535; 99285; A9270; C9803; G0378; J1170; J2405; J7030; J7042; J7050; P9016; U0003

== ENCOUNTER 2020-08-02 21:32 | Inpatient (IN) | payer MEDICARE, SELFPAY ==
--- NOTE | ~2020-08-02 | XR_ITS ---
EXAMINATION: XR chest 1V portable EXAM DATE: 08/03/2020 05:51 INDICATION: History of pneumonia. Reflux. TECHNIQUE: Portable AP frontal chest x-ray was obtained. Comparison is made to prior examination from 02/12/2018. Correlation was made with CT 07/22/2020. FINDINGS: There is small right pleural effusion. There is bibasilar, right greater than left atelecta sis and could be superimposed pneumonia, clinical correlation. No pneumothorax. The cardiomediastinal silhouette is prominent but magnified on this AP technique. Some chronic hyperinflation. There is ao rtic arteriosclerosis. There are bony degenerative changes. Spine stimulator leads. IMPRESSION: 1. Right greater than left basilar atelectasis. Superimposed pneumonia should be considered. 2. Small right pleural effusion. Reviewed, dictated and finalized at location A. [facility] [employer]
--- NOTE | ~2020-08-02 | XR_ITS ---
CORRECTED REPORT Changed report and images from [id number] to [id number] 08/30/20[facility] EXAMINATION: XR surgery orthopedic DATE: 08/03/2020 16:15 INDICATION: Intertrochanteric fracture of proximal right femur. TECHNIQUE: 4 intraoperative fluoroscopic views of right hip were obtained. I was not present. Fluoroscopy exposure time was 219 seconds. COMPARISON: Right hip radiograph 08/02/2020 FINDINGS: There is an intertrochanteric fracture of proximal right femur in near-anatomic alignment status post open reduction internal fixation with antegrade intramedullary honey, distal interlocking screw, and femoral head/neck screw. IMPRESSION: 1. Intertrochanteric fracture of proximal right femur status post open reduction internal fixation. Reviewed, dictated and finalized at location A. LAMB
--- NOTE | 2020-08-02 20:46 | ADMGEN ---
This patient, Jacque Ruvalcaba, was admitted to Medical Room 258-. Patient/family oriented to hospital policies and general routines including ID bracelet, bed and alarms, visiting hours, pain management, procedures, bathroom and other care routines, personal items, smoking policy, room service/diet, and visiting hours. Information on how to activate the Rapid Response Team has been discussed. Patient/Family are encouraged to report perceived risks to care and to ask questions if they do not understand what they are told or what they should do.
[2020-08-02 21:12] VITALS: BP 109/45; PULSE 75; RESP 16; TEMP 37.2; O2SAT 92
[2020-08-02 21:13] VITALS: BMI 20.8
[2020-08-02] MEDS: HYDROcodone/acetaminophen (*CRX) 5-325 MG TABLET 1 TAB PO (22:48)
--- NOTE | 2020-08-02 23:00 | PM.IMHP ---
H&P: HPI History of Present Illness Date/Time: 08/02/20 23:00 Chief complaint: Right hip fracture Narrative: Jacque Ruvalcaba is an 80-year-old male with myelodysplastic syndrome, GERD, and chronic anemia who is being directly admitted to the hospitalist service from the medical floor at [facility] for further management of a right hip fracture obtained when he fell attempting to get off of the toilet earlier this morning. He was admitted to their facility a couple of days ago with generalized weakness, dehydration, and failure to thrive, and in fact he was being discharged to a skilled facility for rehab this morning when he accidentally fell. There was no head trauma or loss of consciousness. At the time my evaluation he complains of a nondescript pain in his right hip, worse with movement. He denies any other injuries in the fall. Review of Systems Review of Systems: Narrative: Twelve systems were reviewed with pertinent positives and negatives as per HPI. No fever, chills, or sweats. He denies recent cold and flu symptoms. No chest pain or shortness of breath. He denies nausea, vomiting, diarrhea, and dysuria. It sounds as though he has a history of esophageal stricture requiring dilation, but he is not certain exactly what he had done, referring at to only as ?throat surgery.? He denies dysphagia. No history of venous thromboembolism. He has chronic anemia due to myelodysplastic syndrome and received blood transfusions quite often. Except as documented, all other systems were reviewed and are negative. [facility] Past Medical History Medical History (Updated 08/03/20 @ 21:39 by Kanchan Will PA-C) Chronic anemia Chronic back pain Depression GERD without esophagitis Myelodysplastic syndrome Requiring frequent blood transfusions. Osteoarthritis Spondylosis of lumbar spine Surgical History Surgical History (Updated 08/03/20 @ 21:40 by Kanchan Will PA-C) History of abdominal surgery Patient on answer as to what kind of surgery he had, but there is a low abdominal midline incision. History of repair of right rotator cuff Family History Family History (Updated 08/03/20 @ 21:40 by Kanchan Will PA-C) Other Heart disease Social History Social History (Updated 08/03/20 @ 21:41 by Kanchan Will PA-C) Social History: Surrogate decision maker: Nicolle Bah, daughter. Code status: Full code. Smoking packs per day: 0.5 Smoking cigarettes per day: 10.0 Smoking status: Former smoker Tobacco type: cigarettes Alcohol intake: never Substance use: never Substance use type: does not use Additional living arrangements comments: Resides in [place]. for more than 10 years. Additional occupation/education comments: Retired from working in a [employer]. Gender identity (if verbalized by the patient): Male Spiritual care concerns: No Meds Home Medications and Allergies Home Medications Medication Instructions Recorded Confirmed Type escitalopram oxalate [Lexapro] 20 mg PO DAILY 07/22/20 08/02/20 History gabapentin [Neurontin] 800 mg PO Q4H 07/22/20 08/02/20 History hydrocodone-acetaminophen [[place]] 1 tablet PO TID PRN 07/22/20 08/02/20 History montelukast [Singulair] 10 mg PO HS 07/22/20 08/02/20 History pantoprazole [Protonix] 40 mg PO DAILY 07/22/20 08/02/20 History acetaminophen 325 mg PO PRN PRN 08/02/20 08/02/20 History buspirone 15 mg PO BID 08/02/20 08/02/20 History lidocaine [Lidoderm] 2 patch TRANSDERMAL DAILY 30 Days 08/02/20 08/02/20 Rx #30 ea lorazepam [Ativan] 0.5 mg PO Q6H PRN 08/02/20 08/03/20 History megestrol 20 mg PO QAM #60 tablet 08/02/20 08/02/20 Rx ondansetron HCl [Zofran] 4 mg PO PRN PRN 08/02/20 08/02/20 History tramadol 25 mg PO Q6H PRN 08/02/20 08/02/20 History trazodone 25 mg PO HS 08/02/20 08/02/20 History Allergies Allergy/AdvReac Type Severity Reaction Status Date / Time No Known Allergies Allergy Ve
[2020-08-03] VITALS (20 sets, daily range): BP systolic 100–145; BP diastolic 34–67; PULSE 64–84; RESP 14–66; TEMP 36.2–37.4; O2SAT 93–100
[2020-08-03 00:22] LABS: Hematocrit 24.3 % (42.0-52.0)
[2020-08-03] MEDS: GABAPENTIN 400 MG CAPSULE 800 MG PO ×6 (01:24→20:30)
[2020-08-03] MEDS: traZODone HCL 25 MG TABLET PO ×2 (01:25→20:30)
[2020-08-03 05:45] LABS: Hematocrit 21.3 % (42.0-52.0); Hemoglobin 7.1 g/dL (14.0-18.0); Immature Platelet Fraction Pct 10.7 % (0.9-11.2); Mean Corpuscular HGB Conc 33.3 g/dl (32-36); Mean Corpuscular Hemoglobin 32.9 pg (26-34); Mean Corpuscular Volume 98.6 fl (80-100); Mean Platelet Volume 11.9 fl (7.4-10.4); Platelet Count Result 148 k/mm3 (150-375); Red Blood Count 2.16 M/mm3 (4.6-6.20); Red Cell Distribution Width 21.6 % (11.5-14.5); White Blood Count 5.1 K/mm3 (4.5-10.0)
[2020-08-03 05:49] LABS: INR 1.3; Prothrombin Time 16.8 Seconds (11.1-14.7)
[2020-08-03 05:50] LABS: Partial Thromboplastin Time 41.1 SECONDS (22.3-36.8)
[2020-08-03 05:55] LABS: Alanine Aminotransferase 23 U/L (4-50); Albumin Level 2.7 g/dL (3.5-5.1); Alkaline Phosphatase 66 U/L (38-126); Anion Gap 4 mmol/L (8-16); Aspartate Amino Transferase 27 U/L (17-59); Blood Urea Nitrogen 19 mg/dL (9-20); Calcium 8.2 mg/dL (8.4-10.2); Carbon Dioxide 29 mmol/L (22-30); Chloride 102 mmol/L (98-107); Estimated CRCL calculation 73 ml/min; Estimated Glomerular Filt Rate > 60; Glucose 127 mg/dL (75-110); Phosphorus 3.8 mg/dL (2.5-4.5); Potassium 4.3 mmol/L (3.4-5.0); Sodium 135 mmol/L (137-145)
--- NOTE | 2020-08-03 07:23 | HP_ITS ---
This report was moved to the correct visit, [id number] on 08/29/2020. Original report was signed by Danis León MD on 08/03/20722. History and Physical Update Update Date/Time: 08/03/20 07:23 History and Physical has been reviewed, including an updated exam of the patient. There are NO changes in the patient's condition. Risks, benefits, and alternatives have been discussed and questions answered. Patient agrees to proceed with procedure. Report Initialized date/time: Danis León MD 08/03/20722 Electronically signed by: Danis León MD 08/03/20722 MTDD
[2020-08-03] MEDS: PANTOPRAZOLE 40 MG TABLET PO (08:53)
[2020-08-03] MEDS: ESCITALOPRAM OXALATE 10 MG TABLET 20 MG PO (08:53)
[2020-08-03] MEDS: busPIRone HCL 5 MG TABLET 15 MG PO ×2 (08:53→18:31)
[2020-08-03] MEDS: LIDOCAINE 5% PATCH 2 PATCH TRANSDERM (08:54)
--- NOTE | 2020-08-03 09:42 | PM.IMPN ---
Progress Note: A&P Assessment and Plan (1) Closed right hip fracture: Qualifiers: Encounter type: initial encounter Qualified Code(s): S72.001A - Fracture of unspecified part of neck of right femur, initial encounter for closed fracture Code(s): S72.001A - Fracture of unspecified part of neck of right femur, initial encounter for closed fracture Status: Acute Assessment and Plan: Patient was hospitalized at [facility] for dehydration, chronic back pain, FTT when he sustained a fall getting off the toilet 08/02. XR shows comminuted intertrochanteric fracture of proximal right femur with anterior displacement. Dr León has been consulted - appreciate recommendations. Noted his plan for OR this afternoon. (2) Myelodysplastic syndrome: Code(s): D46.9 - Myelodysplastic syndrome, unspecified Status: Chronic Assessment and Plan: History of myelodysplasia for which he follows with Dr Kenney Otoole in [place]. He gets transfusions often and notes he gets labs checked every [address] Otoole's office and they have record he was transfused 07/15/20. Monitor CBCd. (3) Chronic anemia: Code(s): D64.9 - Anemia, unspecified Status: Acute Assessment and Plan: See above. He was actually last transfused 07/30/20 1 unit while hospitalized at [place]. Hgb 7.1 this AM, Dr León has ordered 2 units packed RBC. No other evidence of acute bleeding and no notable hematoma on exam today. Monitor CBCd and transfuse as needed. (4) GERD without esophagitis: Code(s): K21.9 - Gastro-esophageal reflux disease without esophagitis Status: Chronic Assessment and Plan: No acute issues. Continue PPI. Subjective Date/time seen: 08/03/20 09:30 Interval history: Mr. Ruvalcaba is an 80yo M admitted for right hip fracture after an unwitnessed fall while attempting to get off the toilet while hospitalized at [facility]. He is tired but wakes easily and answers most questions appropriately. He rates his right hip pain at 10/10 severity. He denies any chest pain or shortness of breath. Reports some vague abdominal pain with palpation but denies nausea or vomiting. Review of Systems Review of Systems: All systems reviewed & are unremarkable except as noted in HPI and below Exam Narrative: Exam Narrative: General: Thin elderly male resting supine in bed, uncomfortable due to pain. HEENT: Normocephalic, EOMI, oral mucosa dry. Cardiovascular: Rate and rhythm are regular. 2/6 systolic murmur heard over left sternal border Respiratory: Lungs clear to auscultation all marvin. Non-labored breathing. Tolerating room air. Abdomen: Soft, non-distended, bowel sounds present. Mild diffuse tenderness to palpation in 4 quadrants without guarding. Extremities: Right lower extremity internally rotated. No edema appreciated. No notable ecchymosis over R hip. Able to wiggle toes EMMANUEL. Neuro: Alert and oriented to self, month, and year. Knows he is in the hospital but reported [facility] (just transferred from [facility] last night. No focal neurological deficits. Objective Data Vital Signs Vital Signs: Last Vital Signs Temp 97.7 F 08/03/20 05:38 Pulse 64 08/03/20 05:38 Resp 16 08/03/20 05:38 BP 100/42 L 08/03/20 05:38 Pulse Ox 97 08/03/20 05:38 Meds/Results Medications: Active Medications Generic Name Dose Route Start Last Admin Trade Name Freq PRN Reason Stop Dose Admin Acetaminophen 650 mg 08/02/20 21:32 Acetaminophen 325 Mg Tablet PO Q4H PRN Mild Pain (1-3) or Fever Hydrocodone Bitart/Acetaminophen 1 tab 08/02/20 21:32 08/02/20 22:48 Hydrocodone/Acetaminophen (*Crx) 5-325 Mg Tablet PO 1 tab Q4H PRN
--- NOTE | 2020-08-03 09:59 | ECG_ITS ---
Measurements Intervals [place] Rate: 73 P: 58 VA: 181 QRS: 2 QRSD: 89 T: 75 QT: 388 QTc: 429 Interpretive Statements SINUS RHYTHM LOW VOLTAGE IN LIMB LEADS ANTEROSEPTAL INFARCT, AGE INDETERMINATE BORDERLINE ST ABNORMALITY- LATERAL LEADS BASELINE WANDER- V3-V4 ABNORMAL ECG Electronically Signed On 08-03-2020 10:27:04 SECOND FLOOR OPERATOR by Axel Dover D.O.
[2020-08-03] MEDS: HYDROcodone/acetaminophen (*CRX) 5-325 MG TABLET 1 TAB PO ×2 (13:06→20:33)
--- NOTE | 2020-08-03 14:04 | WPDANESEPP ---
Anes - Eval Pre Procedure Procedure: Operation Date: 08/03/20 14:15 Proposed Procedures p Right Long Gamma Nail - Danis León MD Date/Time: 08/03/20 14:04 Surgeon: Rafael Pre Op Diagnosis: Right hip fracture Patient Data Age: 80 Gender: M Height: 6 ft 2 in Weight: 73.6 kg Last Vital Signs Temp 37.2 C 08/03/20 11:45 Pulse 72 08/03/20 11:45 Resp 18 08/03/20 11:45 BP 145/42 H 08/03/20 11:45 Pulse Ox 93 08/03/20 11:45 Allergies Allergy/AdvReac Type Severity Reaction Status Date / Time No Known Allergies Allergy Verified 07/03/19 10:42 Home Medications Medication Instructions Recorded Confirmed Type escitalopram oxalate [Lexapro] 20 mg PO DAILY 07/22/20 08/02/20 History gabapentin [Neurontin] 800 mg PO Q4H 07/22/20 08/02/20 History hydrocodone-acetaminophen [[place]] 1 tablet PO TID PRN 07/22/20 08/02/20 History montelukast [Singulair] 10 mg PO HS 07/22/20 08/02/20 History pantoprazole [Protonix] 40 mg PO DAILY 07/22/20 08/02/20 History acetaminophen 325 mg PO PRN PRN 08/02/20 08/02/20 History buspirone 15 mg PO BID 08/02/20 08/02/20 History lidocaine [Lidoderm] 2 patch TRANSDERMAL DAILY 30 Days 08/02/20 08/02/20 Rx #30 ea lorazepam [Ativan] 0.5 mg PO Q6H PRN 08/02/20 08/03/20 History megestrol 20 mg PO QAM #60 tablet 08/02/20 08/02/20 Rx ondansetron HCl [Zofran] 4 mg PO PRN PRN 08/02/20 08/02/20 History tramadol 25 mg PO Q6H PRN 08/02/20 08/02/20 History trazodone 25 mg PO HS 08/02/20 08/02/20 History Laboratory Tests 08/03/20 08/03/20 08/03/20 00:12 05:31 05:31 WBC 5.1 K/mm3 K/mm3 (4.5-10.0) RBC 2.16 M/mm3 L M/mm3 (4.6-6.20) Hgb 8.0 g/dL L g/dL 7.1 g/dL L g/dL (14.0-18.0) (14.0-18.0) Hct 24.3 % L % 21.3 % L % (42.0-52.0) (42.0-52.0) MCV 98.6 fl fl (80-100) MCH 32.9 pg pg (26-34) MCHC 33.3 g/dl g/dl (32-36) RDW 21.6 % H % (11.5-14.5) Plt Count 148 k/mm3 L k/mm3 (150-375) MPV 11.9 fl H fl (7.4-10.4) % Immature Plt Fraction 10.7 % % (0.9-11.2) PT 16.8 Seconds H Seconds (11.1-14.7) INR 1.3 APTT 41.1 SECONDS H SECONDS (22.3-36.8) Sodium Potassium Chloride Carbon Dioxide Anion Gap BUN Creatinine Estim Creat Clear Calc Estimated GFR Glucose Calcium Phosphorus Magnesium Total Bilirubin AST ALT Alkaline Phosphatase Total Protein Albumin TSH (Reflex) Blood Type Antibody Screen Crossmatch 08/03/20 08/03/20 08/03/20 05:31 05:31 07:04 WBC RBC Hgb Hct MCV MCH MCHC RDW Plt Count MPV % Immature Plt Fraction PT INR APTT Sodium 135 mmol/L L mmol/L (137-145) Potassium 4.3 mmol/L mmol/L (3.4-5.0) Chloride 102 mmol/L mmol/L (98-107) Carbon Dioxide 29 mmol/L mmol/L (22-30) Anion Gap 4 mmol/L L mmol/L (8-16) BUN 19 mg/dL mg/dL (9-20) Creatinine 0.70 mg/dL mg/dL (0.7-1.3) Estim Creat Clear Calc 73 ml/min ml/min Estimated GFR > 60 (59 - ) Glucose 127 mg/dL H mg/dL (75-110) Calcium 8.2 mg/dL L mg/dL (8.4-10.2) Phosphorus 3.8 mg/dL mg/dL (2.5-4.5) Magnesium 2.0 mg/dL mg/dL (1.6-2.3) Total Bilirubin 1.0 mg/dL mg/dL (0.2-1.3) AST 27 U/L U/L (17-59) ALT 23 U/L U/L (4-50) Alkaline Phosphatase 66 U/L U/L (38-126) Total Protein 5.0 g/dL L g/dL (6.3-8.2) Albumin 2.7 g/dL
--- NOTE | 2020-08-03 14:24 | WPDANESEFPP ---
Anes - Eval Final PreProcedure Day of Procedure 08/03/20 14:24 Patient weight: normal Heart: regular rate and rhythm Lungs: clear to auscultation Airway: Mallampati scale class II Neurological: confused Last oral intake: >/= 8 hours ASA classification: IV Emergent: no Anesthetic plan: proceed Anesthesia type and monitoring: general LMA and standard monitoring Informed Consent: The patient's anesthetic plan and its attendant risks and benefits were discussed with the patient/family/POA. Questions were solicited and answers provided to the satisfaction of the patient/family/POA.
[2020-08-03] MEDS: LACTATED RINGERS 1,000 ML 30 ML IV CONT ×2 (14:46→16:35)
[2020-08-03] MEDS: ceFAZolin 2 GM/D5W 50 ML 2 GM/50 ML BAG IVPB ×2 (14:56→23:13)
--- NOTE | 2020-08-03 14:58 | PM.CNOR ---
Assessment and Plan Additional Plan 80 YO MALE WITH HX OF RIGHT SUBTROCHANTERIC FEMUR FRACTURE. PLAN FOR INSERTION OF LONG GAMMA NAIL. WE DISCUSSED THE RISKS AND COMPLICATIONS OF SURGERY INCLUDING DVT PE INFECTION NON UNION AND THE NEED FOR FURTHER SURGERY. WE WILL PROCEED. History of Present Illness HPI Consult date: 08/03/20 Consult reason: fracture Chief complaint: Right hip fracture Narrative: 80 YO MALE TRANSFERRED FROM [facility] AFTER FALLING OFF THE COMMODE AND SUSTAINING A RIGHT SUB TROCHANTERIC FEMUR FRACTURE. HE DENIES ANY C/O ASIDE FROM RIGHT HIP FRACTURE. HE DENIES NECK BACK OR ANY UPPER OR LEFT LOWER EXTREMITY PAIN Review of Systems Review of Systems: All systems reviewed & are unremarkable except as noted in HPI and below PMFSH Past Medical History Medical History Chronic anemia Chronic back pain Depression GERD without esophagitis Myelodysplastic syndrome Osteoarthritis Spondylosis of lumbar spine Social History Social History Social History: Surrogate decision maker: Nicolle Bah, daughter. Code status: Full code. Smoking packs per day: 0.5 Smoking cigarettes per day: 10.0 Smoking status: Former smoker Tobacco type: cigarettes Alcohol intake: never Substance use: never Substance use type: does not use Additional living arrangements comments: Resides in [place]. Gender identity (if verbalized by the patient): Male Spiritual care concerns: No Meds Home Medications and Allergies Home Medications Medication Instructions Recorded Confirmed Type escitalopram oxalate [Lexapro] 20 mg PO DAILY 07/22/20 08/02/20 History gabapentin [Neurontin] 800 mg PO Q4H 07/22/20 08/02/20 History hydrocodone-acetaminophen [[place]] 1 tablet PO TID PRN 07/22/20 08/02/20 History montelukast [Singulair] 10 mg PO HS 07/22/20 08/02/20 History pantoprazole [Protonix] 40 mg PO DAILY 07/22/20 08/02/20 History acetaminophen 325 mg PO PRN PRN 08/02/20 08/02/20 History buspirone 15 mg PO BID 08/02/20 08/02/20 History lidocaine [Lidoderm] 2 patch TRANSDERMAL DAILY 30 Days 08/02/20 08/02/20 Rx #30 ea lorazepam [Ativan] 0.5 mg PO Q6H PRN 08/02/20 08/03/20 History megestrol 20 mg PO QAM #60 tablet 08/02/20 08/02/20 Rx ondansetron HCl [Zofran] 4 mg PO PRN PRN 08/02/20 08/02/20 History tramadol 25 mg PO Q6H PRN 08/02/20 08/02/20 History trazodone 25 mg PO HS 08/02/20 08/02/20 History Allergies Allergy/AdvReac Type Severity Reaction Status Date / Time No Known Allergies Allergy Verified 08/03/20 14:56 Vital Signs Vital Signs - 24 hr 08/02/20 21:12 08/03/20 05:38 08/03/20 11:30 Temperature 37.2 C 36.5 C 37.3 C Pulse Rate 75 64 73 Respiratory Rate 16 16 20 Blood Pressure 109/45 L 100/42 L 137/44 L Pulse Oximetry 92 97 94 08/03/20 11:45 08/03/20 14:10 08/03/20 14:25 Temperature 37.2 C 37.1 C 37.2 C Pulse Rate 72 69 69 Respiratory Rate 18 16 16 Blood Pressure 145/42 H 134/45 L 126/39 L Pulse Oximetry 93 97 97 Exam Back/Spine/Pelvis: Cervical Spine: cervical ROM normal, No cervical muscular tenderness and No Cervical spine tenderness Thoracic/Lumbar Spine: thoracic and lumbar spine normal to inspection Extrem: Right upper extremity: normal to inspection and full ROM Left upper extremity: normal to inspection, full ROM and normal capillary refill Right lower extremity: normal to inspection, normal capillary refill, hip/thigh Details: abnormal to inspection, tenderness, swelling, abnormal ROM Details: pain with active ROM during and pain with passive ROM during, ecchymosis and crepitus; no lacerations, ankle Details: normal to inspection and normal ROM; no tenderness and foot Details: toes with normal ROM, vascular exam Details: dorsalis pedis pulse present, posterior tibial pulse present and normal capillary refill and motor-sensory exam; no cyanosis Left lower extrem
--- NOTE | 2020-08-03 16:28 | PM.PROC ---
Procedure Note - Detailed Date of procedure: 08/03/20 Pre-op diagnosis: Right hip fracture Post-op diagnosis: same Procedure performed: INSERTION OF GAMMA EVELYN RIGHT HIP FRACTURE Description of procedure: THE PATIENT WAS TAKN TO THE OR AND PLACED ON A FRACTURE TABLE AFTER HAVEN BEEN GIVEN GENERAL ANESTHESIA. THE RIGHT LOWER EXTREMITY WAS PLACED IN A TRACTION BOOT AND USING SOME TRACTION AND INTERNAL ROTATION THE INNER TROCH FRACTURE WAS REDUCED TO ANATOMIC POSITION. NEXT THE RIGHT LOWER EXTREMITY WAS PREPPED AND DRAPED IN THE STERILE FASHION. AN INCISION WAS MADE PROXIMAL TO THE TIP OF THE GREATER TROCHANTER AND DISSECTION CONTINUED TILL THE TIP OF THE GREATER TROCHANTER WAS PALPATED. A GUIDE WAS PLACED DOWN THE FEMORAL CANAL AND PAST THE FRACTURE SITE. THIS WAS CHECKED ON FLUOROSCOPY AND FOUND TO BE IN GOOD POSITION. AN INITIAL REAMER WAS USED TO REAM THE FEMORAL CANAL. AN 11 BY 180 MM GAMMA EVELYN WAS INSERTED TILL THE CORRECT POSITION WAS IDENTIFIED ON XRAY. A GUIDE PIN WAS INSERTED AT 125 DEG ANGLE TILL IT REACHED THE TIP OF THE SUB CHONDRAL BONE SEEN ON XRAY. AFTER REAMING, LAG SCREW WAS INSERTED AT 125 DE[address] ANGLE MEASURING 110 MM. XRAYS SHOWED IT TO BE IN GOOD POSITION. THE LAG SCREW WAS LOCKED PROXIMALLY WITH A LOCKING SCREW. NEXT A DISTAL LOCKING SCREW WAS PLACED ACROSS THE EVELYN AND WAS IN GOOD POSITION ON XRAY. THE TRACTION WAS RELEASED. THE WOUNDS WERE WASHED. THE DEEP FASCIA WAS REPAIRED WITH 0 VICRYL SUTURE, THE SUB CUTANEOUS LAYER WITH 2-0 VICRYL, AND THE SKIN WITH DELMER. THE WOUNDS WERE WASHED AND THEN STERILE DRESSING WAS APPLIED. PATIENT WAS EXTUBATED AND SENT TO RECOVERY ROOM. Anesthesia: GLMA Surgeon: Danis León MD Estimated blood loss (mL): 750 Drains: No Packing: No Pathology: none sent Complications: No immediate complications Condition: stable Disposition: PACU
[2020-08-03 17:16] LABS: Hematocrit 24.9 % (42.0-52.0); Hemoglobin 8.1 g/dL (14.0-18.0)
[2020-08-03] MEDS: SODIUM CHLORIDE 0.9% IV 1,000 ML 125 ML IV CONT (18:30)
[2020-08-03] MEDS: DOCUSATE SODIUM 100 MG CAPSULE PO (18:31)
[2020-08-03] MEDS: MONTELUKAST SODIUM 10 MG TABLET PO (20:30)
[2020-08-03] MEDS: FAMOTIDINE 20 MG TABLET PO (20:30)
[2020-08-03 21:19] LABS: Hematocrit 22.5 % (42.0-52.0); Hemoglobin 7.2 g/dL (14.0-18.0)
[2020-08-04] VITALS (16 sets, daily range): BP systolic 102–147; BP diastolic 33–61; PULSE 70–89; RESP 14–20; TEMP 36.6–37.3; O2SAT 94–99
[2020-08-04] MEDS: GABAPENTIN 400 MG CAPSULE 800 MG PO ×6 (00:10→20:14)
[2020-08-04 05:46] LABS: Basophils Percent Auto 0.4 % (0.2-1.2); Hematocrit 21.7 % (42.0-52.0); Hemoglobin 7.1 g/dL (14.0-18.0); Immature Granulocyte Absolute 0.07 K/mm3 (0.00-0.031); Immature Granulocyte Percent A 1.4 % (0-0.5); Immature Platelet Fraction Pct 11.4 % (0.9-11.2); Lymphocytes Absolute Auto 0.72 K/mm3 (0.9-3.2); Lymphocytes Percent Auto 14.7 % (18.3-44.2); Mean Corpuscular HGB Conc 32.7 g/dl (32-36); Mean Corpuscular Hemoglobin 31.7 pg (26-34); Mean Corpuscular Volume 96.9 fl (80-100); Mean Platelet Volume 12.4 fl (7.4-10.4); Monocytes Absolute Auto 0.6 K/mm3 (0.1-0.6); Monocytes Percent Auto 13.1 % (2.6-8.5); Neutrophils Absolute Auto 3.5 K/mm3 (1.3-6.7); Neutrophils Percent Auto 70.4 % (45.5-73.1); Platelet Count Result 143 k/mm3 (150-375); Red Blood Count 2.24 M/mm3 (4.6-6.20); Red Cell Distribution Width 20.8 % (11.5-14.5); White Blood Count 4.9 K/mm3 (4.5-10.0)
[2020-08-04] MEDS: ceFAZolin 2 GM/D5W 50 ML 2 GM/50 ML BAG IVPB ×2 (06:11→14:05)
[2020-08-04 06:14] LABS: Alanine Aminotransferase 23 U/L (4-50); Albumin Level 2.6 g/dL (3.5-5.1); Alkaline Phosphatase 66 U/L (38-126); Anion Gap 1 mmol/L (8-16); Aspartate Amino Transferase 25 U/L (17-59); Bilirubin,Total 0.9 mg/dL (0.2-1.3); Blood Urea Nitrogen 20 mg/dL (9-20); Calcium 7.9 mg/dL (8.4-10.2); Carbon Dioxide 31 mmol/L (22-30); Chloride 101 mmol/L (98-107); Estimated CRCL calculation 73 ml/min; Estimated Glomerular Filt Rate > 60; Glucose 119 mg/dL (75-110); Phosphorus 3.4 mg/dL (2.5-4.5); Potassium 4.4 mmol/L (3.4-5.0); Sodium 133 mmol/L (137-145)
[2020-08-04] MEDS: HYDROcodone/acetaminophen (*CRX) 5-325 MG TABLET 1 TAB PO ×3 (06:19→18:51)
[2020-08-04] MEDS: busPIRone HCL 5 MG TABLET 15 MG PO ×2 (08:15→16:21)
[2020-08-04] MEDS: MEGESTROL ACETATE (*CHEMO) ORAL SUSP 40 MG/ML SYR 400 MG PO (08:15)
[2020-08-04] MEDS: LIDOCAINE 5% PATCH 2 PATCH TRANSDERM (08:15)
[2020-08-04] MEDS: FONDAPARINUX SODIUM 2.5 MG/0.5 ML SYRINGE SUB-Q (08:16)
[2020-08-04] MEDS: DOCUSATE SODIUM 100 MG CAPSULE PO ×2 (08:16→16:21)
[2020-08-04] MEDS: ESCITALOPRAM OXALATE 10 MG TABLET 20 MG PO (08:16)
[2020-08-04] MEDS: PANTOPRAZOLE 40 MG TABLET PO (08:16)
[2020-08-04] MEDS: FAMOTIDINE 20 MG TABLET PO ×2 (08:16→20:14)
--- NOTE | 2020-08-04 09:04 | WPDANESPN ---
Anes - Prog Note Post-Op Date/Time: 08/04/20 09:04 Cardiovascular status: normal Respiratory status: normal Airway patency: baseline Mental status: baseline Post-Op hydration status: normal Vital Signs: Last Vital Signs Temp 36.9 C 08/04/20 06:00 Pulse 76 08/04/20 06:00 Resp 14 08/04/20 06:00 BP 123/39 L 08/04/20 06:00 Pulse Ox 95 08/04/20 06:00 Pain Score (VAS): 0 I/O: Intake & Output 08/03/20 08/04/20 08/04/20 23:59 07:59 15:59 Intake Total 750 50 Output Total 260 Balance 490 50 Laboratory Tests 08/04/20 05:23 08/04/20 05:23 08/03/20 08/03/20 08/03/20 07:04 17:07 21:00 WBC RBC Hgb 8.1 L 7.2 L Hct 24.9 L 22.5 L MCV MCH MCHC RDW Plt Count MPV Immature Gran % (Auto) Neut % (Auto) Lymph % (Auto) Nash % (Auto) Eos % (Auto) Baso % (Auto) Lymph # (Auto) Nash # (Auto) Eos # (Auto) Baso # (Auto) Abs Immat Gran (auto) Absolute Neuts (auto) Absolute Nucleated RBC Nucleated RBC % % Immature Plt Fraction Sodium Potassium Chloride Carbon Dioxide Anion Gap BUN Creatinine Estim Creat Clear Calc Estimated GFR Glucose Calcium Phosphorus Magnesium Total Bilirubin AST ALT Alkaline Phosphatase Total Protein Albumin Blood Type A Positive Antibody Screen Negative Crossmatch See Detail 08/04/20 08/04/20 05:23 05:23 WBC 4.9 RBC 2.24 L Hgb 7.1 L Hct 21.7 L MCV 96.9 MCH 31.7 MCHC 32.7 RDW 20.8 H Plt Count 143 L MPV 12.4 H Immature Gran % (Auto) 1.4 H Neut % (Auto) 70.4 Lymph % (Auto) 14.7 L Nash % (Auto) 13.1 H Eos % (Auto) 0.0 Baso % (Auto) 0.4 Lymph # (Auto) 0.72 L Nash # (Auto) 0.6 Eos # (Auto) 0.0 Baso # (Auto) 0.0 Abs Immat Gran (auto) 0.07 H Absolute Neuts (auto) 3.5 Absolute Nucleated RBC 0.0 Nucleated RBC % 0.0 % Immature Plt Fraction 11.4 H Sodium 133 L Potassium 4.4 Chloride 101 Carbon Dioxide 31 H Anion Gap 1 L BUN 20 Creatinine 0.70 Estim Creat Clear Calc 73 Estimated GFR > 60 Glucose 119 H Calcium 7.9 L Phosphorus 3.4 Magnesium 2.0 Total Bilirubin 0.9 AST 25 ALT 23 Alkaline Phosphatase 66 Total Protein 5.0 L Albumin 2.6 L Blood Type Antibody Screen Crossmatch Post-procedural complaints: none Patient Feedback: Patient satisfied with anesthetic care.
--- NOTE | 2020-08-04 09:41 | PM.PNORT ---
Progress Note: A&P Assessment and Plan (1) Closed right hip fracture: Qualifiers: Encounter type: initial encounter Qualified Code(s): S72.001A - Fracture of unspecified part of neck of right femur, initial encounter for closed fracture Code(s): S72.001A - Fracture of unspecified part of neck of right femur, initial encounter for closed fracture Status: Acute Assessment and Plan: POD #1: Insertion of Gamma Himanshu RIGHT Hip Continue PT/OT. TTWB RLE. Continue pain control. Ice lateral hip. Change dressing daily. Apply Island Dressings. Continue DVT prophylaxis. SCDs. Incentive Spirometry. Will continue to follow. Subjective Subjective Date/Time Seen: 08/04/20 09:41 POD #1: Gamma Himanshu Right Hip Feeling well. Awaiting PT/OT to get out of bed to the bathroom. Some feelings of stiffness/soreness right hip but tolerable. Review of Systems Constitutional: Constitutional: Denies chills, Reports fatigue and Denies night sweats Cardiovascular: Cardiovascular: Denies chest pain and Denies lightheadedness Respiratory: Respiratory: Denies cough and Denies wheezing Gastrointestinal: Gastrointestinal: Denies abdominal pain, Denies diarrhea, Denies nausea and Denies vomiting Genitourinary: Genitourinary: Denies dysuria, Reports urinary frequency and Denies urinary hesitancy Musculoskeletal: Musculoskeletal: Reports arthralgias (right hip ) and Reports joint swelling (right hip ) Endocrine: Endocrine: Reports fatigue Allergic/Immunologic: Allergic/Immunologic: Denies wheezing Exam Const: General: comfortable and no acute distress Resp: Effort & Inspection: normal respiratory effort Cardio: Rate: regular rate Rhythm: regular rhythm : Other: Urine clear Neuro: General: No gait normal (antalgic, limited, requiring assistance ) Cognition (Neuro): normal cognition Motor exam (neuro): strength not 5/5 throughout (weakness RLE ) and Abnormal motor strength present (decreased RLE ) Sensory Exam: normal sensation Extrem: Right lower extremity: hip/thigh (Right lateral hip incision c/d/i. ) Details: tenderness Location: of the hip Location: laterally, abnormal ROM (limited due to recent surgical intervention ) and other (Thigh soft/nontender. ); no deformity and no unusual warmth, lower leg (Negative Nani's Sign ) and foot Details: normal capillary refill, no edema, vascular exam Details: dorsalis pedis pulse present and posterior tibial pulse present, tendon exam Details: active flexion normal Location: of all toes and active extension normal Location: of all toes and motor-sensory exam Details: two point discrimination normal and light-touch normal Left lower extremity: normal to inspection, full ROM, normal capillary refill and hip/thigh Details: normal to inspection and normal ROM; no tenderness and no swelling Psych: Mental Status: mental status grossly normal Affect: normal affect Objective Data Vital Signs Vital Signs: Vital Signs - 24 hr 08/03/20 11:30 08/03/20 11:45 08/03/20 12:45 Temperature 37.3 C 37.2 C 37.4 C Pulse Rate 73 72 73 Respiratory Rate 20 18 18 Blood Pressure 137/44 L 145/42 H 138/49 L Pulse Oximetry 94 93 95 08/03/20 14:00 08/03/20 14:10 08/03/20 14:25 Temperature 37.3 C 37.1 C 37.2 C Pulse Rate 73 69 69 Respiratory Rate 14 16 16 Blood Pressure 138/41 L 134/45 L 126/39 L Pulse Oximetry 98 97 97 08/03/20 14:40 08/03/20 14:55 08/03/20 16:35 Temperature 37.2 C 37.2 C 36.6 C Pulse Rate 67 69 67 Respiratory Rate 18 18 15 Blood Pressure 131/38 L 126/39 L 125/39 L Pulse Oximetry 97 100 08/03/20 16:50 08/03/20 17:05 08/03/20 17:20 Temperature Pulse Rate 66 84 68 Respiratory Rate 17 23 H 18 Blood Pressure 124/41 L 138/67 131/40 L Pulse Oximetry 100 98 94 08/03/20 17:35 08/03/20 17:50 08/03/20 18:15 Temperature 36.2 C L Pulse Rate 73 67 69 Respiratory Rate 18 66 H 16 Blood Pressure 136/36 L 129/37 L 143/38 H Pulse Oximetry 94 96 100
--- NOTE | 2020-08-04 09:57 | PM.IMPN ---
Progress Note: A&P Assessment and Plan (1) Closed right hip fracture: Qualifiers: Encounter type: initial encounter Qualified Code(s): S72.001A - Fracture of unspecified part of neck of right femur, initial encounter for closed fracture Code(s): S72.001A - Fracture of unspecified part of neck of right femur, initial encounter for closed fracture Status: Acute Assessment and Plan: Patient was hospitalized at [facility] for dehydration, chronic back pain, FTT when he sustained a fall getting off the toilet 08/02. XR showed comminuted intertrochanteric fracture of proximal right femur with anterior displacement. Appreciate Dr León's recommendations - he is now POD#1 s/p gamma honey insertion with Dr León 08/03/20. Wound care, DVT prophylaxis, pain control per the orthopedic service. (2) Chronic anemia: Code(s): D64.9 - Anemia, unspecified Status: Acute Assessment and Plan: See above. 07/30/20 1 unit transfusion while hospitalized at [place]. Received 2 units packed RBC 08/03. Hgb down to 6.4 this afternoon, will give another 2 units blood and monitor. No other evidence of acute bleeding and no notable hematoma on exam today. Monitor CBCd and transfuse as needed. (3) Myelodysplastic syndrome: Code(s): D46.9 - Myelodysplastic syndrome, unspecified Status: Chronic Assessment and Plan: History of myelodysplasia for which he follows with Dr Kenney Otoole in [place]. He gets transfusions often and notes he gets labs checked every [address] Otoole's office and they have record he was transfused 07/15/20. Monitor CBCd. (4) GERD without esophagitis: Code(s): K21.9 - Gastro-esophageal reflux disease without esophagitis Status: Chronic Assessment and Plan: No acute issues. Continue PPI. Subjective Date/time seen: 08/04/20 0850 Interval history: Mr. Ruvalcaba is an 80yo M admitted for right hip fracture after fall, now POD#1 s/p gamma honey insertion by Dr León. He is sitting up, alert and eating breakfast. He describes some right hip discomfort which is reasonably controlled at this time. He denies any chest pain or shortness of breath. Tolerated some breakfast without nausea or vomiting. Review of Systems Review of Systems: All systems reviewed & are unremarkable except as noted in HPI and below Exam Narrative: Exam Narrative: General: Thin elderly male resting comfortably sitting up in bed in no acute distress. HEENT: Normocephalic, EOMI, oral mucosa moist. Cardiovascular: Rate and rhythm are regular. 2/6 systolic murmur heard over left sternal border Respiratory: Lungs clear to auscultation all marvin. Non-labored breathing. Tolerating room air. Abdomen: Soft, non-distended, bowel sounds present, nontender. Extremities: Nontender to palpation, no significant edema. Right hip dressing is clean/dry/intact. Right lower extremity is neurovascularly intact distal to the surgical site. Neuro: Awake and alert, answering most questions appropriately. No focal neurological deficits. Speech is clear. Much more awake and alert compared to yesterday. Objective Data Vital Signs Vital Signs: Last Vital Signs Temp 97.8 F 08/04/20 10:00 Pulse 75 08/04/20 10:00 Resp 16 08/04/20 10:00 BP 110/36 L 08/04/20 10:00 Pulse Ox 96 08/04/20 10:00 Intake/Output Intake/Output: Intake & Output 08/01/20 08/02/20 08/03/20 08/04/20 23:59 23:59 23:59 23:59 Intake Total 1150 50 Output Total 260 Balance 890 50 Meds/Results Medications: Active Medications Generic Name Dose Route Start Last Admin Trade Name Freq PRN Reason Stop Dose Admin Acetaminophen 650 mg 08/03/20 18:02 Acetaminophen 325 Mg Tablet PO Q6H PRN Mi
[2020-08-04 12:19] LABS: Hematocrit 19.4 % (42.0-52.0); Hemoglobin 6.4 g/dL (14.0-18.0)
[2020-08-04] MEDS: SODIUM CHLORIDE 0.9% IV 250 ML 30 ML IV CONT (16:30)
[2020-08-04 18:20] LABS: Hematocrit 24.7 % (42.0-52.0); Hemoglobin 8.4 g/dL (14.0-18.0)
[2020-08-04] MEDS: traZODone HCL 25 MG TABLET PO (20:14)
[2020-08-04] MEDS: MONTELUKAST SODIUM 10 MG TABLET PO (20:14)
[2020-08-05 00:49] LABS: Hemoglobin 8.3 g/dL (14.0-18.0)
[2020-08-05] MEDS: GABAPENTIN 400 MG CAPSULE 800 MG PO ×6 (00:56→20:08)
[2020-08-05 02:00] VITALS: BP 143/41; PULSE 77; RESP 18; TEMP 36.6; O2SAT 98
[2020-08-05] MEDS: HYDROcodone/acetaminophen (*CRX) 5-325 MG TABLET 1 TAB PO ×5 (04:27→23:42)
[2020-08-05 05:41] LABS: Basophils Percent Auto 0.6 % (0.2-1.2); Hematocrit 25.8 % (42.0-52.0); Hemoglobin 8.5 g/dL (14.0-18.0); Immature Granulocyte Absolute 0.09 K/mm3 (0.00-0.031); Immature Granulocyte Percent A 1.7 % (0-0.5); Lymphocytes Absolute Auto 0.62 K/mm3 (0.9-3.2); Mean Corpuscular HGB Conc 32.9 g/dl (32-36); Mean Corpuscular Hemoglobin 30.5 pg (26-34); Mean Corpuscular Volume 92.5 fl (80-100); Mean Platelet Volume 11.2 fl (7.4-10.4); Monocytes Absolute Auto 0.5 K/mm3 (0.1-0.6); Monocytes Percent Auto 10.5 % (2.6-8.5); Neutrophils Absolute Auto 3.9 K/mm3 (1.3-6.7); Neutrophils Percent Auto 75.2 % (45.5-73.1); Platelet Count Result 149 k/mm3 (150-375); Red Blood Count 2.79 M/mm3 (4.6-6.20); Red Cell Distribution Width 20.4 % (11.5-14.5); White Blood Count 5.2 K/mm3 (4.5-10.0)
[2020-08-05 06:00] VITALS: BP 120/40; PULSE 76; RESP 16; TEMP 36.8; O2SAT 96
[2020-08-05 06:02] LABS: Anion Gap 3 mmol/L (8-16); Blood Urea Nitrogen 19 mg/dL (9-20); Calcium 8.1 mg/dL (8.4-10.2); Carbon Dioxide 30 mmol/L (22-30); Chloride 100 mmol/L (98-107); Estimated CRCL calculation 84 ml/min; Estimated Glomerular Filt Rate > 60; Glucose 112 mg/dL (75-110); Magnesium 2.1 mg/dL (1.6-2.3); Phosphorus 3.6 mg/dL (2.5-4.5); Potassium 4.1 mmol/L (3.4-5.0); Sodium 133 mmol/L (137-145)
[2020-08-05 08:27] VITALS: BMI 10.0
[2020-08-05] MEDS: busPIRone HCL 5 MG TABLET 15 MG PO ×2 (08:32→17:43)
[2020-08-05] MEDS: DOCUSATE SODIUM 100 MG CAPSULE PO ×2 (08:33→17:42)
[2020-08-05] MEDS: ESCITALOPRAM OXALATE 10 MG TABLET 20 MG PO (08:33)
[2020-08-05] MEDS: FONDAPARINUX SODIUM 2.5 MG/0.5 ML SYRINGE SUB-Q (08:33)
[2020-08-05] MEDS: LIDOCAINE 5% PATCH 2 PATCH TRANSDERM (08:33)
[2020-08-05] MEDS: FAMOTIDINE 20 MG TABLET PO ×2 (08:33→20:08)
[2020-08-05] MEDS: MEGESTROL ACETATE (*CHEMO) ORAL SUSP 40 MG/ML SYR 400 MG PO (08:34)
[2020-08-05] MEDS: PANTOPRAZOLE 40 MG TABLET PO (08:34)
--- NOTE | 2020-08-05 08:46 | PM.IMPN ---
Progress Note: A&P Assessment and Plan (1) Closed right hip fracture: Qualifiers: Encounter type: initial encounter Qualified Code(s): S72.001A - Fracture of unspecified part of neck of right femur, initial encounter for closed fracture Code(s): S72.001A - Fracture of unspecified part of neck of right femur, initial encounter for closed fracture Status: Acute Assessment and Plan: Patient was hospitalized at [facility] for dehydration, chronic back pain, FTT when he sustained a fall getting off the toilet 08/02. XR showed comminuted intertrochanteric fracture of proximal right femur with anterior displacement. Appreciate Dr León's recommendations - he is now POD#2 s/p gamma honey insertion with Dr León 08/03/20. Wound care, DVT prophylaxis, pain control per the orthopedic service. (2) Chronic anemia: Code(s): D64.9 - Anemia, unspecified Status: Acute Assessment and Plan: See above. 07/30/20 1 unit transfusion while hospitalized at [place]. Received 2 units packed RBC 08/03, and another 2 units 08/04. Hgb stable at 8.5 this morning, monitor with H&H this afternoon. No other evidence of acute bleeding and no notable hematoma on exam today. Monitor CBCd and transfuse as needed. (3) Myelodysplastic syndrome: Code(s): D46.9 - Myelodysplastic syndrome, unspecified Status: Chronic Assessment and Plan: History of myelodysplasia for which he follows with Dr Kenney Otoole in [place]. He gets transfusions often and notes he gets labs checked every [address]. [address] Otoole's office and they have record he was transfused 07/15/20. Monitor CBCd. (4) GERD without esophagitis: Code(s): K21.9 - Gastro-esophageal reflux disease without esophagitis Status: Chronic Assessment and Plan: No acute issues. Continue PPI. Subjective Date/time seen: 08/05/20 08:46 Interval history: Mr. Ruvalcaba is an 80yo M admitted for right hip fracture after fall, now POD#2 s/p gamma honye insertion by Dr León. He is sitting up, alert and getting his morning meds per Nursing, about to have therapy session. He describes mod right hip discomfort which is reasonably controlled at this time; 10 at this time. He denies any chest pain or shortness of breath, dizziness/lightheadedness, fevers/chills. Tolerated some meals thus far without n/v Review of Systems Review of Systems: All systems reviewed & are unremarkable except as noted in HPI and below Exam Narrative: Exam Narrative: General: Thin elderly male resting comfortably sitting up in bed in no acute distress. Nursing and Therapy in room. HEENT: Normocephalic, EOMI, oral mucosa moist. Cardiovascular: Rate and rhythm are regular. 2/6 systolic murmur heard over left sternal border Respiratory: Lungs clear to auscultation all marvin. Non-labored breathing. Tolerating room air. Abdomen: Soft, non-distended, bowel sounds present, nontender. Extremities: Nontender to palpation, Slight edema noted b/l LE. Right hip dressings is intact with slight blood on dressings. Right lower extremity is neurovascularly intact distal to the surgical site. Neuro: Awake and alert, answering most questions appropriately. No focal neurological deficits. Speech is clear. Much more awake and alert compared to yesterday. Objective Data Vital Signs Vital Signs: Last Vital Signs Temp 98.2 F 08/05/20 06:00 Pulse 76 08/05/20 06:00 Resp 16 08/05/20 06:00 BP 120/40 L 08/05/20 06:00 Pulse Ox 96 08/05/20 06:00 Intake/Output Intake/Output: Intake & Output 08/02/20 08/03/20 08/04/20 08/05/20 23:59 23:59 23:59 23:59 Intake Total 1150 1850 100 Output Total 260 375 Balance 890 1475 100 Meds/Results Medications: Active Medications G
--- NOTE | 2020-08-05 09:35 | PM.PNORT ---
Progress Note: A&P Assessment and Plan (1) Closed right hip fracture: Qualifiers: Encounter type: initial encounter Qualified Code(s): S72.001A - Fracture of unspecified part of neck of right femur, initial encounter for closed fracture Code(s): S72.001A - Fracture of unspecified part of neck of right femur, initial encounter for closed fracture Status: Acute Assessment and Plan: POD #2: Insertion of Gamma Himanshu RIGHT Hip Continue PT/OT. TTWB RLE. Continue pain control. Ice lateral hip. Change dressing daily. Apply Island Dressings. Nursing notified. Continue DVT prophylaxis. SCDs. Incentive Spirometry. Will continue to follow. Dispo: SNF vs Rehab when medically stable Follow up appointment scheduled with Dr. León. Subjective Subjective Date/Time Seen: 08/05/20 09:35 POD #2: Gamma Himanshu Right Hip Feeling well. No new complaints. Pain well controlled. Review of Systems Constitutional: Constitutional: Denies chills, Reports fatigue and Denies night sweats Cardiovascular: Cardiovascular: Denies chest pain and Denies lightheadedness Respiratory: Respiratory: Denies cough and Denies wheezing Gastrointestinal: Gastrointestinal: Denies abdominal pain, Denies diarrhea, Denies nausea and Denies vomiting Genitourinary: Genitourinary: Denies dysuria, Reports urinary frequency and Denies urinary hesitancy Musculoskeletal: Musculoskeletal: Reports arthralgias (right hip ) and Reports joint swelling (right hip ) Endocrine: Endocrine: Reports fatigue Allergic/Immunologic: Allergic/Immunologic: Denies wheezing Exam Const: General: comfortable and no acute distress Resp: Effort & Inspection: normal respiratory effort Cardio: Rate: regular rate Rhythm: regular rhythm GI: Inspection: non-distended GI Palp: Yes Soft to palpation and No Tenderness to palpation present (GI) : Other: Urine clear Skin: Other: Incision lateral hip with some drainage. Surrounding tissue without redness/warmth. Neuro: General: No gait normal (antalgic, limited, requiring assistance ) Cognition (Neuro): normal cognition Motor exam (neuro): strength not 5/5 throughout (weakness RLE ) and Abnormal motor strength present (decreased RLE ) Sensory Exam: normal sensation Extrem: Right lower extremity: hip/thigh (right lateral hip incision with serousanguinous drainage ) Details: tenderness Location: of the hip Location: laterally, abnormal ROM (limited due to recent surgical intervention ) and other (Thigh soft/nontender. ); no deformity and no unusual warmth, knee Details: swelling (moderate reactive joint effusion ) and abnormal ROM (limited due to hip pain. ); no tenderness, no abrasions and no ecchymosis, lower leg (Negative Nani's Sign ) and foot Details: normal capillary refill, no edema, vascular exam Details: dorsalis pedis pulse present and posterior tibial pulse present, tendon exam Details: active flexion normal Location: of all toes and active extension normal Location: of all toes and motor-sensory exam Details: two point discrimination normal and light-touch normal Left lower extremity: normal to inspection, full ROM, normal capillary refill and hip/thigh Details: normal to inspection and normal ROM; no tenderness and no swelling Psych: Mental Status: mental status grossly normal Affect: normal affect Objective Data Vital Signs Vital Signs: Vital Signs - 24 hr 08/04/20 10:00 08/04/20 14:00 08/04/20 14:45 Temperature 36.6 C 37.2 C 37.2 C Pulse Rate 75 88 88 Respiratory Rate 16 16 16 Blood Pressure 110/36 L 120/38 L 120/38 L Pulse Oximetry 96 97 98 08/04/20 15:00 08/04/20 16:00 08/04/20 17:00 Temperature 37.1 C 37.3 C 37.2 C Pulse Rate 76 74 74 Respiratory Rate 18 20 18 Blood Pressure 102/35 L 127/44 L 125/38 L Pulse Oximetry 95 94 98 08/04/20 17:55 08/04/20 19:36 08/04/20 19:50 Temperature 36.6 C 36.9 C 36.9 C Pulse Rate 76 78 89 Respiratory Rate 16 18 16 Blood Pressure 1
[2020-08-05 10:00] VITALS: BP 107/36; PULSE 75; RESP 16; TEMP 36.7; O2SAT 100
--- NOTE | 2020-08-05 10:30 | PC.NURSE ---
Edema noted to right upper leg, knee and thigh. Informed Freda Dyson CARTON STAMPER on rounds and she assessed patient.
[2020-08-05 13:32] VITALS: BMI 10.0
[2020-08-05 14:00] VITALS: BP 116/35; PULSE 65; RESP 16; TEMP 36.4; O2SAT 99
[2020-08-05 14:23] LABS: Hematocrit 25.3 % (42.0-52.0); Hemoglobin 8.4 g/dL (14.0-18.0)
[2020-08-05 18:00] VITALS: BP 125/35; PULSE 69; RESP 16; TEMP 36.8; O2SAT 99
[2020-08-05] MEDS: MONTELUKAST SODIUM 10 MG TABLET PO (20:09)
[2020-08-05] MEDS: traZODone HCL 25 MG TABLET PO (20:09)
[2020-08-05 20:22] VITALS: BP 117/31; PULSE 76; RESP 16; TEMP 36.8; O2SAT 93
[2020-08-06] MEDS: GABAPENTIN 400 MG CAPSULE 800 MG PO ×7 (00:06→23:58)
[2020-08-06 00:14] VITALS: BP 118/33; PULSE 66; RESP 14; TEMP 36.8; O2SAT 99
[2020-08-06] MEDS: HYDROcodone/acetaminophen (*CRX) 5-325 MG TABLET 1 TAB PO ×3 (05:07→20:55)
[2020-08-06 05:22] LABS: Basophils Percent Auto 0.5 % (0.2-1.2); Eosinophils Percent Auto 0.8 % (0-4.4); Hematocrit 21.4 % (42.0-52.0); Hemoglobin 7.1 g/dL (14.0-18.0); Immature Granulocyte Absolute 0.05 K/mm3 (0.00-0.031); Immature Granulocyte Percent A 1.3 % (0-0.5); Lymphocytes Absolute Auto 0.63 K/mm3 (0.9-3.2); Lymphocytes Percent Auto 16.8 % (18.3-44.2); Mean Corpuscular HGB Conc 33.2 g/dl (32-36); Mean Corpuscular Hemoglobin 30.6 pg (26-34); Mean Corpuscular Volume 92.2 fl (80-100); Mean Platelet Volume 11.6 fl (7.4-10.4); Monocytes Absolute Auto 0.4 K/mm3 (0.1-0.6); Monocytes Percent Auto 9.3 % (2.6-8.5); Neutrophils Absolute Auto 2.7 K/mm3 (1.3-6.7); Neutrophils Percent Auto 71.3 % (45.5-73.1); Platelet Count Result 147 k/mm3 (150-375); Red Blood Count 2.32 M/mm3 (4.6-6.20); Red Cell Distribution Width 20.2 % (11.5-14.5); White Blood Count 3.8 K/mm3 (4.5-10.0)
[2020-08-06 05:39] LABS: Anion Gap 3 mmol/L (8-16); Blood Urea Nitrogen 19 mg/dL (9-20); Carbon Dioxide 29 mmol/L (22-30); Chloride 100 mmol/L (98-107); Estimated CRCL calculation 84 ml/min; Estimated Glomerular Filt Rate > 60; Glucose 91 mg/dL (75-110); Magnesium 2.2 mg/dL (1.6-2.3); Sodium 132 mmol/L (137-145)
[2020-08-06 05:55] VITALS: BP 116/39; PULSE 67; RESP 15; TEMP 36.3; O2SAT 92
[2020-08-06] MEDS: FAMOTIDINE 20 MG TABLET PO ×2 (08:39→20:57)
[2020-08-06] MEDS: DOCUSATE SODIUM 100 MG CAPSULE PO ×2 (08:40→16:46)
[2020-08-06] MEDS: PANTOPRAZOLE 40 MG TABLET PO (08:40)
[2020-08-06] MEDS: busPIRone HCL 5 MG TABLET 15 MG PO ×2 (08:40→16:46)
[2020-08-06] MEDS: ESCITALOPRAM OXALATE 10 MG TABLET 20 MG PO (08:40)
[2020-08-06] MEDS: MEGESTROL ACETATE (*CHEMO) ORAL SUSP 40 MG/ML SYR 400 MG PO (08:41)
[2020-08-06] MEDS: LIDOCAINE 5% PATCH 2 PATCH TRANSDERM (08:41)
[2020-08-06 10:00] VITALS: BP 128/38; PULSE 69; RESP 20; TEMP 36.9; O2SAT 97
[2020-08-06] MEDS: FONDAPARINUX SODIUM 2.5 MG/0.5 ML SYRINGE SUB-Q (10:17)
[2020-08-06 10:42] VITALS: BMI 10.0
[2020-08-06 12:25] LABS: Hematocrit 22.5 % (42.0-52.0); Hemoglobin 7.4 g/dL (14.0-18.0)
--- NOTE | 2020-08-06 12:26 | PM.IMPN ---
Progress Note: A&P Assessment and Plan (1) Closed right hip fracture: Qualifiers: Encounter type: initial encounter Qualified Code(s): S72.001A - Fracture of unspecified part of neck of right femur, initial encounter for closed fracture Code(s): S72.001A - Fracture of unspecified part of neck of right femur, initial encounter for closed fracture Status: Acute Assessment and Plan: Patient was hospitalized at [facility] for dehydration, chronic back pain, FTT when he sustained a fall getting off the toilet 08/02. XR showed comminuted intertrochanteric fracture of proximal right femur with anterior displacement. Appreciate Dr León's recommendations - he is now POD#3 s/p gamma honey insertion with Dr León 08/03/20. Wound care, DVT prophylaxis, pain control per the orthopedic service. (2) Chronic anemia: Code(s): D64.9 - Anemia, unspecified Status: Acute Assessment and Plan: See above. 07/30/20 1 unit transfusion while hospitalized at [place]. Received 2 units packed RBC 08/03, and another 2 units 08/04. Hgb 7.1 then 7.4 today. Hematoma to right thigh, we will monitor. Monitor CBCd and transfuse as needed. (3) Myelodysplastic syndrome: Code(s): D46.9 - Myelodysplastic syndrome, unspecified Status: Chronic Assessment and Plan: History of myelodysplasia for which he follows with Dr Kenney Otoole in [place]. He gets transfusions often and notes he gets labs checked every [address] Otoole's office and they have record he was transfused 07/15/20. Monitor CBCd closely. (4) GERD without esophagitis: Code(s): K21.9 - Gastro-esophageal reflux disease without esophagitis Status: Chronic Assessment and Plan: No acute issues. Continue PPI. Subjective Date/time seen: 08/06/20 1020 Interval history: Mr. Ruvalcaba is an 80yo M admitted for right hip fracture after fall, now POD#3 s/p gamma honey insertion by Dr León. Sitting up in bedside chair. R hip is uncomfortable. He does have a medial right thigh hematoma. Slow progress with therapy. Denies chest pain, shortness of breath, dizziness or lightheadedness. Had some breakfast without nausea or vomiting. Review of Systems Review of Systems: All systems reviewed & are unremarkable except as noted in HPI and below Exam Narrative: Exam Narrative: General: Thin elderly male resting comfortably sitting up in bedside chair in no acute distress. HEENT: Normocephalic, EOMI, oral mucosa moist. Cardiovascular: Rate and rhythm are regular. 2/6 systolic murmur heard over left sternal border Respiratory: Lungs clear to auscultation all marvin. Non-labored breathing. Tolerating room air. Abdomen: Soft, non-distended, bowel sounds present, nontender. Extremities: Nontender to palpation, right leg a bit edematous compared to left, soft. Right hip dressing with small amount of blood. A purple hematoma is noted to right medial/posterior thigh near the groin. Right lower extremity is neurovascularly intact distal to the surgical site. Neuro: Awake and alert, answering most questions appropriately. No focal neurological deficits. Speech is clear. Objective Data Vital Signs Vital Signs: Last Vital Signs Temp 98.9 F 08/06/20 14:00 Pulse 69 08/06/20 14:00 Resp 20 08/06/20 14:00 BP 123/39 L 08/06/20 14:00 Pulse Ox 98 08/06/20 14:00 Intake/Output Intake/Output: Intake & Output 08/03/20 08/04/20 08/05/20 08/06/20 23:59 23:59 23:59 23:59 Intake Total 1150 1850 840 360 Output Total 260 375 425 550 Balance 890 1475 415 -190 Meds/Results Medications: Active Medications Generic Name Dose Route Start Last Admin Trade Name Freq PRN Reason Stop Dose Admin Acetaminophen 650 mg 08/03/20 18:02
[2020-08-06 14:00] VITALS: BP 123/39; PULSE 69; RESP 20; TEMP 37.2; O2SAT 98
[2020-08-06] MEDS: ACETAMINOPHEN 325 MG TABLET 650 MG PO (16:46)
[2020-08-06 18:00] VITALS: BP 122/52; PULSE 96; RESP 18; TEMP 37.2; O2SAT 98
[2020-08-06 20:00] VITALS: BP 142/42; PULSE 63; RESP 18; TEMP 36.6; O2SAT 97
[2020-08-06] MEDS: MONTELUKAST SODIUM 10 MG TABLET PO (20:57)
[2020-08-06] MEDS: traZODone HCL 25 MG TABLET PO (20:57)
[2020-08-07] MEDS: LORazepam (*CRX) 0.5 MG TABLET PO (05:26)
[2020-08-07] MEDS: GABAPENTIN 400 MG CAPSULE 800 MG PO ×4 (05:26→21:45)
[2020-08-07 05:46] VITALS: BP 107/80; PULSE 69; RESP 18; TEMP 37.1; O2SAT 96
[2020-08-07 08:59] LABS: Basophils Percent Auto 0.8 % (0.2-1.2); Eosinophils Percent Auto 0.8 % (0-4.4); Hemoglobin 7.2 g/dL (14.0-18.0); Immature Granulocyte Absolute 0.06 K/mm3 (0.00-0.031); Immature Granulocyte Percent A 1.6 % (0-0.5); Lymphocytes Absolute Auto 0.55 K/mm3 (0.9-3.2); Lymphocytes Percent Auto 14.5 % (18.3-44.2); Mean Corpuscular HGB Conc 32.7 g/dl (32-36); Mean Corpuscular Hemoglobin 29.9 pg (26-34); Mean Corpuscular Volume 91.3 fl (80-100); Mean Platelet Volume 12.4 fl (7.4-10.4); Monocytes Absolute Auto 0.3 K/mm3 (0.1-0.6); Monocytes Percent Auto 7.7 % (2.6-8.5); Neutrophils Absolute Auto 2.8 K/mm3 (1.3-6.7); Neutrophils Percent Auto 74.6 % (45.5-73.1); Platelet Count Result 155 k/mm3 (150-375); Red Blood Count 2.41 M/mm3 (4.6-6.20); Red Cell Distribution Width 20.3 % (11.5-14.5); White Blood Count 3.8 K/mm3 (4.5-10.0)
[2020-08-07] MEDS: LIDOCAINE 5% PATCH 2 PATCH TRANSDERM (09:01)
[2020-08-07] MEDS: busPIRone HCL 5 MG TABLET 15 MG PO (09:01)
[2020-08-07] MEDS: DOCUSATE SODIUM 100 MG CAPSULE PO ×2 (09:02→16:29)
[2020-08-07] MEDS: MEGESTROL ACETATE (*CHEMO) ORAL SUSP 40 MG/ML SYR 400 MG PO (09:02)
[2020-08-07] MEDS: FAMOTIDINE 20 MG TABLET PO ×2 (09:02→21:45)
[2020-08-07] MEDS: ESCITALOPRAM OXALATE 10 MG TABLET 20 MG PO (09:02)
[2020-08-07] MEDS: PANTOPRAZOLE 40 MG TABLET PO (09:02)
[2020-08-07 09:18] LABS: Anion Gap 4 mmol/L (8-16); Blood Urea Nitrogen 17 mg/dL (9-20); Calcium 8.2 mg/dL (8.4-10.2); Carbon Dioxide 27 mmol/L (22-30); Chloride 102 mmol/L (98-107); Estimated CRCL calculation 99 ml/min; Estimated Glomerular Filt Rate > 60; Glucose 94 mg/dL (75-110); Magnesium 2.1 mg/dL (1.6-2.3); Potassium 4.2 mmol/L (3.4-5.0); Sodium 133 mmol/L (137-145)
[2020-08-07] MEDS: FONDAPARINUX SODIUM 2.5 MG/0.5 ML SYRINGE SUB-Q (09:24)
[2020-08-07 10:00] VITALS: BP 142/54; PULSE 77; RESP 16; TEMP 36.5; O2SAT 98
[2020-08-07 10:10] VITALS: BMI 10.0
--- NOTE | 2020-08-07 10:45 | PM.IMPN ---
Progress Note: A&P Assessment and Plan (1) Closed right hip fracture: Qualifiers: Encounter type: initial encounter Qualified Code(s): S72.001A - Fracture of unspecified part of neck of right femur, initial encounter for closed fracture Code(s): S72.001A - Fracture of unspecified part of neck of right femur, initial encounter for closed fracture Status: Acute Assessment and Plan: Patient was hospitalized at [facility] for dehydration, chronic back pain, FTT when he sustained a fall getting off the toilet 08/02. XR showed comminuted intertrochanteric fracture of proximal right femur with anterior displacement. Appreciate Dr León's recommendations - he is now POD#4 s/p gamma honey insertion with Dr León 08/03/20. Wound care, DVT prophylaxis, pain control per the orthopedic service. (2) Chronic anemia: Code(s): D64.9 - Anemia, unspecified Status: Acute Assessment and Plan: See above. 07/30/20 1 unit transfusion while hospitalized at [place]. Received 2 units packed RBC 08/03, and another 2 units 08/04. Hgb 7.2 this AM. Hematoma to right thigh, we will monitor. Monitor CBCd and transfuse as needed. (3) Myelodysplastic syndrome: Code(s): D46.9 - Myelodysplastic syndrome, unspecified Status: Chronic Assessment and Plan: History of myelodysplasia for which he follows with Dr Kenney Otoole in [place]. He gets transfusions often and notes he gets labs checked every [address] Otoole's office and they have record he was transfused 07/15/20. Monitor CBCd closely. (4) GERD without esophagitis: Code(s): K21.9 - Gastro-esophageal reflux disease without esophagitis Status: Chronic Assessment and Plan: No acute issues. Continue PPI. (5) Depression: Qualifiers: Depression Type: unspecified Qualified Code(s): F32.9 - Major depressive disorder, single episode, unspecified Code(s): F32.9 - Major depressive disorder, single episode, unspecified Status: Acute Assessment and Plan: Patient takes lexapro, buspirone. Daughter mentioned one of his doctors thought he may need to come off these due to confusion. Hesitant to abruptly stop these medications but we will decrease the doses given his lethargy and monitor. Subjective Date/time seen: 08/07/20 0845 Interval history: Mr. Ruvalcaba is an 80yo M admitted for right hip fracture after fall, now POD#4 s/p gamma honey insertion by Dr León. He is sitting up in bed sleeping, lethargic more so than days prior. Noted that he received ativan a few hours ago apparently due to anxiety or agitation. Review of Systems Review of Systems: ROS unobtainable: Yes unobtainable due to mental status Exam Narrative: Exam Narrative: General: Thin elderly male resting comfortably sitting up in bed in no acute distress. Sleeping. HEENT: Normocephalic, EOMI, oral mucosa tacky. Cardiovascular: Rate and rhythm are regular. 2/6 systolic murmur heard over left sternal border Respiratory: Lungs clear to auscultation all marvin. Non-labored breathing. Tolerating room air. Abdomen: Soft, non-distended, bowel sounds present, nontender. Extremities: Nontender to palpation, right leg a bit edematous compared to left, soft. Right hip dressing with small amount of blood. A purple hematoma is noted to right medial/posterior thigh near the groin. Right lower extremity is neurovascularly intact distal to the surgical site. Neuro: Sleeping, lethargic. Objective Data Vital Signs Vital Signs: Last Vital Signs Temp 98.1 F 08/07/20 13:49 Pulse 71 08/07/20 13:49 Resp 18 08/07/20 13:49 BP 136/54 L 08/07/20 13:49 Pulse Ox 100 08/07/20 13:49 Intake
[2020-08-07] MEDS: ACETAMINOPHEN 325 MG TABLET 650 MG PO ×2 (10:53→18:18)
[2020-08-07 13:49] VITALS: BP 136/54; PULSE 71; RESP 18; TEMP 36.7; O2SAT 100
[2020-08-07] MEDS: HYDROcodone/acetaminophen (*CRX) 5-325 MG TABLET 1 TAB PO ×2 (14:11→21:45)
[2020-08-07 14:29] LABS: Hemoglobin 7.8 g/dL (14.0-18.0)
[2020-08-07] MEDS: busPIRone HCL 5 MG TABLET PO (16:29)
[2020-08-07 18:00] VITALS: BP 134/42; PULSE 68; RESP 18; TEMP 37; O2SAT 96
[2020-08-07] MEDS: MONTELUKAST SODIUM 10 MG TABLET PO (21:46)
[2020-08-07 22:00] VITALS: BP 136/42; PULSE 78; RESP 21; TEMP 36.8; O2SAT 100
[2020-08-07] MEDS: traZODone HCL 25 MG TABLET PO (23:26)
[2020-08-08] MEDS: GABAPENTIN 400 MG CAPSULE 800 MG PO ×3 (00:57→09:20)
[2020-08-08 02:00] VITALS: BP 120/40; PULSE 66; RESP 21; TEMP 36.7; O2SAT 100
[2020-08-08 06:00] VITALS: BP 152/51; PULSE 80; RESP 20; TEMP 36.2; O2SAT 98
[2020-08-08 08:43] LABS: Basophils Absolute Auto 0.1 K/mm3 (0.0-0.1); Basophils Percent Auto 0.7 % (0.2-1.2); Eosinophils Percent Auto 0.1 % (0-4.4); Hematocrit 26.7 % (42.0-52.0); Hemoglobin 8.8 g/dL (14.0-18.0); Immature Granulocyte Absolute 0.11 K/mm3 (0.00-0.031); Immature Granulocyte Percent A 1.6 % (0-0.5); Lymphocytes Absolute Auto 0.52 K/mm3 (0.9-3.2); Lymphocytes Percent Auto 7.5 % (18.3-44.2); Mean Corpuscular Hemoglobin 30.6 pg (26-34); Mean Corpuscular Volume 92.7 fl (80-100); Mean Platelet Volume 11.4 fl (7.4-10.4); Monocytes Absolute Auto 0.4 K/mm3 (0.1-0.6); Monocytes Percent Auto 6.1 % (2.6-8.5); Neutrophils Absolute Auto 5.8 K/mm3 (1.3-6.7); Platelet Count Result 299 k/mm3 (150-375); Red Blood Count 2.88 M/mm3 (4.6-6.20); Red Cell Distribution Width 20.8 % (11.5-14.5); White Blood Count 6.9 K/mm3 (4.5-10.0)
[2020-08-08 08:57] LABS: Alanine Aminotransferase 18 U/L (4-50); Albumin Level 3.2 g/dL (3.5-5.1); Alkaline Phosphatase 89 U/L (38-126); Anion Gap 8 mmol/L (8-16); Aspartate Amino Transferase 27 U/L (17-59); Blood Urea Nitrogen 18 mg/dL (9-20); Calcium 8.5 mg/dL (8.4-10.2); Carbon Dioxide 24 mmol/L (22-30); Chloride 101 mmol/L (98-107); Estimated CRCL calculation 84 ml/min; Estimated Glomerular Filt Rate > 60; Glucose 148 mg/dL (75-110); Potassium 4.1 mmol/L (3.4-5.0); Sodium 133 mmol/L (137-145)
--- NOTE | 2020-08-08 09:06 | PM.PNORT ---
Progress Note: A&P Assessment and Plan (1) Closed right hip fracture: Qualifiers: Encounter type: initial encounter Qualified Code(s): S72.001A - Fracture of unspecified part of neck of right femur, initial encounter for closed fracture Code(s): S72.001A - Fracture of unspecified part of neck of right femur, initial encounter for closed fracture Status: Acute Assessment and Plan: POD #5: Insertion of Gamma Evelyn RIGHT Hip Ecchymosis noted. Thigh soft. Mildly tender. Hgb Stable, awaiting results from today. Continue PT/OT. TTWB RLE. Continue pain control. Ice lateral hip. Change dressing daily. Apply Island Dressings. Continue DVT prophylaxis, plan to consult with his warehouse traffic supervisor regarding Arixtra. SCDs. Incentive Spirometry. Will continue to follow. Dispo: SNF when medically stable Subjective Subjective Date/Time Seen: 08/08/20 09:06 Post Op day: 5 Principal diagnosis: Right Hip Fracture Interval history: POD #5: INSERTION OF GAMMA EVELYN RIGHT HIP FRACTURE No new complaints. Feeling well. Sitting up in the chair eating breakfast. Review of Systems Constitutional: Constitutional: Denies chills, Reports fatigue and Denies night sweats Cardiovascular: Cardiovascular: Denies chest pain and Denies lightheadedness Respiratory: Respiratory: Denies cough and Denies wheezing Gastrointestinal: Gastrointestinal: Denies abdominal pain, Denies diarrhea, Denies nausea and Denies vomiting Genitourinary: Genitourinary: Denies dysuria, Reports urinary frequency and Denies urinary hesitancy Musculoskeletal: Musculoskeletal: Reports arthralgias (right hip ) and Reports joint swelling (right hip ) Endocrine: Endocrine: Reports fatigue Allergic/Immunologic: Allergic/Immunologic: Denies wheezing Exam Const: General: comfortable and no acute distress Resp: Effort & Inspection: normal respiratory effort Cardio: Rate: regular rate Rhythm: regular rhythm GI: Inspection: non-distended GI Palp: Yes Soft to palpation and No Tenderness to palpation present (GI) : Other: Urine clear Skin: Other: Incision lateral hip with some drainage. Surrounding tissue without redness/warmth. Neuro: General: No gait normal (antalgic, limited, requiring assistance ) Cognition (Neuro): normal cognition Motor exam (neuro): strength not 5/5 throughout (weakness RLE ) and Abnormal motor strength present (decreased RLE ) Sensory Exam: normal sensation Extrem: Right lower extremity: hip/thigh (right lateral hip incision with serousanguinous drainage ) Details: tenderness Location: of the hip (improving ) Location: laterally, swelling (thigh with swelling but soft. ) Location: at the hip, at the proximal leg and other (inner thigh ), abnormal ROM (limited due to recent surgical intervention ), ecchymosis (Right lateral hip, internal/posterior thigh, right lateral upper back as well. ) and other (Thigh soft/nontender. ); no deformity and no unusual warmth, knee Details: swelling (no joint effusion noted. ) and abnormal ROM (limited due to hip pain. ); no tenderness, no abrasions and no ecchymosis, lower leg (Negative Nani's Sign ), ankle (+ankle dorsiflexion/plantarflexion ) and foot Details: normal capillary refill, no edema, vascular exam Details: dorsalis pedis pulse present and posterior tibial pulse present, tendon exam Details: active flexion normal Location: of all toes and active extension normal Location: of all toes and motor-sensory exam Details: two point discrimination normal and light-touch normal Left lower extremity: normal to inspection, full ROM, normal capillary refill and hip/thigh Details: normal to inspection and normal ROM; no tenderness and no swelling Psych: Mental Status: mental status grossly normal Affect: normal affect Objective Data Vital Signs Vital Signs: Vital Signs - 24 hr 08/07/20 10:00 08/07/20 13:49 08/07/20 18:00 Temperature 36.5 C 36.7 C 37.0 C Pulse Rate 77 71 68 Respi
[2020-08-08 09:15] VITALS: BMI 10.0
[2020-08-08] MEDS: busPIRone HCL 5 MG TABLET PO ×2 (09:19→17:21)
[2020-08-08] MEDS: FONDAPARINUX SODIUM 2.5 MG/0.5 ML SYRINGE SUB-Q (09:20)
[2020-08-08] MEDS: FAMOTIDINE 20 MG TABLET PO (09:20)
[2020-08-08] MEDS: ESCITALOPRAM OXALATE 10 MG TABLET PO (09:20)
[2020-08-08] MEDS: LIDOCAINE 5% PATCH 2 PATCH TRANSDERM (09:20)
[2020-08-08] MEDS: PANTOPRAZOLE 40 MG TABLET PO (09:21)
[2020-08-08] MEDS: DOCUSATE SODIUM 100 MG CAPSULE PO ×2 (09:24→17:21)
[2020-08-08] MEDS: HYDROcodone/acetaminophen (*CRX) 5-325 MG TABLET 1 TAB PO (09:25)
[2020-08-08 09:36] LABS: Platelet Estimate Adequate (Adequate)
[2020-08-08 09:37] LABS: Acanthocytes 1+ (NORMAL); Anisocytosis 1+ (NORMAL); Ovalocytes 1+ (NORMAL)
--- NOTE | 2020-08-08 11:33 | PCOTNOTE ---
Pt. sleeping soundly, unable to rouse to actively participate in OT session. Will attempt again to see for OT this PM.
--- NOTE | 2020-08-08 13:49 | PC.NURSE ---
Patient more lethargic this afternoon. Discussed Gabapentin with Rebecca ALLEN. Order received to hold 1300 dose.
[2020-08-08] MEDS: ACETAMINOPHEN 325 MG TABLET 650 MG PO (14:52)
--- NOTE | 2020-08-08 15:44 | PM.DS ---
DS: Admitting Diagnosis Admitting Diagnosis Admitting Diagnosis: Right hip fracture DS: Discharge Diagnosis Discharge Diagnosis (1) Closed right hip fracture: Qualifiers: Encounter type: initial encounter Qualified Code(s): S72.001A - Fracture of unspecified part of neck of right femur, initial encounter for closed fracture Code(s): S72.001A - Fracture of unspecified part of neck of right femur, initial encounter for closed fracture Status: Acute Assessment and Plan: Date of Admission 08/02/20 Date of Discharge/DOS 08/08/20 Mr. Ruvalcaba is an 80yo M with history of myelodysplastic syndrome with chronic anemia, depression, and GERD who transferred from [facility] for orthopedic surgery consultation after he fell getting off the toilet and sustained a right proximal femur fracture. He was evaluated by orthopedics, Dr León, and underwent gamma honey insertion right hip fracture 08/03/20. He is known to have myelodysplasia and follows with hematology, Dr Otoole, in [place]. He received a total of 4 units packed RBC transfusion early in his admission as detailed below. He was noted to have hematoma to right hip and right medial/posterior groin postoperatively; both areas were soft and not particularly painful to touch and not felt to be infected at this time. Hgb low but stable day of discharge. Mr. Ruvalcaba continues with lethargy and some confusion postoperatively. Before the fall, he was hospitalized for adult failure to thrive and his daughter noted he has not been eating much lately. Slow progress with therapy. Detailed discussion held with daughter regarding prognosis. Doses of buspar, lexapro, gabapentin were decreased. He is hemodynamically stable for discharge to [facility] on 08/08/20 with instructions for follow up with Dr León as well as PCP and his counter caser. Patient was hospitalized at [facility] for dehydration, chronic back pain, FTT when he sustained a fall getting off the toilet 08/02. XR showed comminuted intertrochanteric fracture of proximal right femur with anterior displacement. Discharged POD#5 s/p gamma honey insertion with Dr León 08/03/20. Wound care, DVT prophylaxis, pain control per the orthopedic service. (2) Chronic anemia: Code(s): D64.9 - Anemia, unspecified Status: Acute Assessment and Plan: 07/30/20 1 unit transfusion while hospitalized at [place]. Received 2 units packed RBC 08/03, and another 2 units 08/04. Hgb low but stable. Hematoma right thigh will need monitoring. Monitor CBCd closely outpatient and follow up with his counter caser. (3) Myelodysplastic syndrome: Code(s): D46.9 - Myelodysplastic syndrome, unspecified Status: Chronic Assessment and Plan: History of myelodysplasia for which he follows with Dr Kenney Otoole in [place]. He gets transfusions often and notes he gets labs checked every [address] Otoole's office and they have record he was transfused 07/15/20. (4) GERD without esophagitis: Code(s): K21.9 - Gastro-esophageal reflux disease without esophagitis Status: Chronic Assessment and Plan: No acute issues. Continue PPI. (5) Depression: Qualifiers: Depression Type: unspecified Qualified Code(s): F32.9 - Major depressive disorder, single episode, unspecified Code(s): F32.9 - Major depressive disorder, single episode, unspecified Status: Acute Assessment and Plan: Patient takes lexapro, buspirone. Daughter mentioned one of his doctors thought he may need to come off these due to confusion. Hesitant to abruptly stop these medications but we will decrease the doses given his lethargy.
[2020-08-08] MEDS: GABAPENTIN 300 MG CAPSULE PO (17:21)
== END 2020-08-08 18:15 | DRG 481 ==
PROVIDERS: Orthopaedic Surgery; Physician Assistant; Admitting Provider Family Medicine; PCP Internal Medicine; Visit Provider Physician Assistant
PROC: 0QS634Z Reposition Right Upper Femur with Internal Fixation Device, Percutaneous Approach (ICD-10-PCS; CPT 27245; principal; 2020-08-03 14:15)
DX: S72.21XA Displaced subtrochanteric fracture of right femur, initial encounter for closed fracture (principal); M96.840 Postprocedural hematoma of a musculoskeletal structure following a musculoskeletal system procedure; D46.9 Myelodysplastic syndrome, unspecified; K21.9 Gastro-esophageal reflux disease without esophagitis; D64.9 Anemia, unspecified; E86.0 Dehydration; W18.11XA Fall from or off toilet without subsequent striking against object, initial encounter; R62.7 Adult failure to thrive; Z68.20 Body mass index [BMI] 20.0-20.9, adult; M19.90 Unspecified osteoarthritis, unspecified site; M47.896 Other spondylosis, lumbar region; F32.9 Major depressive disorder, single episode, unspecified; Z87.891 Personal history of nicotine dependence
CPT/HCPCS: 36415; 36430; 71045; 80048; 80053; 83735; 84100; 84443; 85014; 85018; 85025; 85027; 85055; 85610; 85730; 86850; 86900; 86901; 86923; 93005; 97110; 97161; 97166; 97530; 97535; A9270; C1713; C1769; J0690; J1100; J1652; J2370; J2405; J2704; J3010; J7030; J7050; J7120; P9016

== ENCOUNTER 2020-08-19 08:33 | Inpatient (IN) | payer MEDICARE, SELFPAY ==
[2020-08-19] VITALS (33 sets, daily range): BP systolic 105–146; BP diastolic 54–67; PULSE 96–144; RESP 19–35; TEMP 36.1–37.9; O2SAT 89–100
--- NOTE | 2020-08-19 | ECG_ITS ---
Measurements Intervals [place] Rate: 141 P: -56 CA: 170 QRS: -38 QRSD: 100 T: 67 QT: 333 QTc: 511 Interpretive Statements ECTOPIC ATRIAL TACHYCARDIA VENTRICULAR PREMATURE COMPLEXES LEFT AXIS DEVIATION LOW QRS VOLTAGE IN LIMB LEADS ANTEROSEPTAL INFARCT, AGE INDETERMINATE ST-T WAVE ABNORMALITY IN LATERAL LEADS- CONSIDER ISCHEMIA BASELINE ARTIFACT- I, II, III, AVR, AVL, AVF ABNORMAL ECG Electronically Signed On 08-19-2020 11:55:47 [employer]OTEL CONTR[employer] by Axel Dover D.O.
--- NOTE | 2020-08-19 | ECHO_ITS ---
Patient Info Name: Jacque Ruvalcaba Age: 80 years : 1940 Gender: Male Ht: 75 in Wt: 148 lbs BSA: 1.87 m2 HR: 125 bpm BP: 125 / 69 mmHg Heart Rhythm: Tachycardia, Sinus Rhythm Technical Quality: Good Exam Date: 08/19/2020 2:27 PM Exam Location: [facility] Patient Status: Inpatient Admit Date: 08/19/2020 Staff Ordering Physician: Lilliam Durham MD Data Reduction Technician: Candido Andino RDCS Attending Provider: Ron Landry MD Referring Physician: Marva ARBOLEDA; Exam Type: CA echo doppler color flow Study Info Indications I50.9 - Heart failure, unspecified Complete two-dimensional, color flow and Doppler transthoracic echocardiogram is performed. Strain analysis performed. History/Risk Factors Covid+; CHF, anemia, acute respiratory failure, SOB, elevated trops. Summary 1. Complete two-dimensional, color flow and Doppler transthoracic echocardiogram is performed. 2. Left ventricular chamber dimension is mildly enlarged. 3. Left ventricular systolic function is severely reduced, estimated at 15-20%. 4. There is mildly increased left ventricular wall thickness. 5. The left ventricular diastolic function is grade I diastolic dysfunction. 6. Global longitudinal strain is abnormal at -4 %. 7. The apical septum, apical cap, mid inferoseptal, and mid anteroseptal are akinetic. 8. The inferior wall, anterior wall, apical lateral wall, basal inferoseptal, mid anterolateral wall, and basal anteroseptal are hypokinetic. 9. Right ventricular chamber dimension is mildly enlarged. 10. Left atrial chamber dimension is mildly enlarged. 11. There is mild aortic valve calcification. 12. There is mild aortic valve stenosis with a peak velocity of 158 cm/s, mean gradient of 5 mmHg, and aortic valve area of 2.0 cm2. 13. There is mild aortic valve regurgitation. 14. There is moderate mitral valve regurgitation. 15. There is mild tricuspid valve regurgitation. 16. Severe pulmonary hypertension, estimated pulmonary arterial systolic pressure is 63 mmHg. 17. Strain analysis performed. Left Ventricle Left ventricular chamber dimension is mildly enlarged. Left ventricular systolic function is severely reduced, estimated at 15-20%. There is mildly increased left ventricular wall thickness. The left ventricular diastolic function is grade I diastolic dysfunction. Global longitudinal strain is abnormal at -4 %. The apical septum, apical cap, mid inferoseptal, and mid anteroseptal are akinetic. The inferior wall, anterior wall, apical lateral wall, basal inferoseptal, mid anterolateral wall, and basal anteroseptal are hypokinetic. All other ramos appear normal. Right Ventricle Right ventricular chamber dimension is mildly enlarged. Right ventricular systolic function is normal. Left Atria Left atrial chamber dimension is mildly enlarged. Right Atria Right atrial chamber dimension is normal. Atrial Septum Bowing of the interatrial septum to the right by color flow imaging. Aortic Valve The aortic valve is trileaflet. There is mild aortic valve stenosis with a peak velocity of 158 cm/s, mean gradient of 5 mmHg, and aortic valve area of 2.0 cm2. There is mild aortic valve regurgitation. There is mild aortic valve calcification. Pulmonic Valve The pulmonic valve is not well visualized. There is no pulmonic valve stenosis. There is trace pulmonic regurgitation. Mitral Valve The mitral valve has thickened leaflets. There is no mitral valve stenosis.
--- NOTE | ~2020-08-19 | XR_ITS ---
EXAMINATION: XR chest 1V portable DATE: 08/20/2020 06:32 INDICATION: COVID-19 pneumonia. Acute hypoxic respiratory failure. TECHNIQUE: A single frontal view of the chest was obtained on 2 radiographs. COMPARISON: Chest single view 08/19/2020, 08/03/2020, chest CT 08/19/2020 FINDINGS: There are airspace opacities in all lung zones bilaterally, right worse than left. There is a small right pleural effusion. No pneumothorax. The heart size is normal. Epidural electrodes overl ie the spine. IMPRESSION: 1. Worsened diffuse lung disease, consistent with pneumonia versus pulmonary edema. 2. Stable small right pleural effusion. 3. Cardiomegaly. Reviewed, dictated and finalized at location A. IST ORGANIC IMPRESSION: 1. Worsened diffuse lung disease, consistent with pneumonia versus pulmonary ed anahi. 2. Stable small right pleural effusion. 3. Cardiomegaly.
--- NOTE | ~2020-08-19 | US_ITS ---
EXAMINATION:US venous doppler LE BI INDICATION:Leg edema TECHNIQUE: Multiple grayscale, color flow and Doppler images of the right and left lower extremity de ep venous systems were obtained and reviewed. COMPARISON:08/29/2016 FINDINGS: The common femoral, superficial femoral and popliteal veins demonstrate normal respiratory variation, augmentation and compressibility. Color flow is also seen within the posterior tibial, pe roneal, greater saphenous and profunda veins. IMPRESSION: 1: No lower extremity deep venous thrombosis. Reviewed, dictated and finalized at location A. ROTOR CREW CHIEF
--- NOTE | ~2020-08-19 | XR_ITS ---
XR chest 1V portable 08/19/2020 09:21 Indication: Covid Infection Procedure: AP portable chest Comparison: Comparison to multiple prior studies sequentially, with oldest reviewed study dated 02/12. Findings: There has been interval progression of extensive right-sided airspace disease, consistent w ith pneumonia. Cardiomegaly. Spinal stimulator leads stable. Small right pleural effusion. No pneumot horax. Impression: 1: Significant progression of right-sided airspace disease, compatible with pneumonia. 2: Small right pleural effusion. Reviewed, dictated and finalized at location A. [employer] Impression: 1: Significant progression of right-sided airspace disease, compatible with pne umonia. 2: Small right pleural effusion.
--- NOTE | ~2020-08-19 | XR_ITS ---
EXAMINATION: XR chest 1V portable INDICATION: Shortness of breath TECHNIQUE: Portable AP chest at 0620 hours COMPARISON: 08/20/2020 FINDINGS: Diffuse patchy airspace opacities persist in all lung zones with overall slight improvement , particularly on the right. Bibasilar consolidation has developed. There is a small right pleural ef fusion and likely a small left pleural effusion. No pneumothorax is identified. There is stable cardi omegaly. IMPRESSION: 1. Diffuse lung disease with overall improvement, consistent with pneumonia versus pulmonary edema. S light worsening in the lung bases could reflect atelectasis or possible localized worsening. 2. Small right, and likely small left, pleural effusion. 3. Cardiomegaly. Reviewed, dictated and finalized at location A. SOFTWARE ENGINEER IMPRESSION: 1. Diffuse lung disease with overall improvement, consistent with pneumonia annamaria ngozi pulmonary edema. Slight worsening in the lung bases could reflect atelectas is or possible localized worsening. 2. Small right, and likely small left, pleural effusion. 3. Cardiomegaly.
--- NOTE | ~2020-08-19 | CT_ITS ---
EXAMINATION: CTA chest PE protocol DATE: 08/19/2020 12:49 PAPER STACKER INDICATION: Covid Positive. Shortness of breath and fever. TECHNIQUE: Computed tomographic angiography (CTA) of the chest was performed with 100 mL Omnipaque-35 0 intravenous contrast. The dose-length product was 342.36 mGy-cm. Maximum intensity projection 3D-re constructions of the aorta and other arteries were constructed by the technologist on a separate work station. Automated exposure control and iterative reconstruction technique were employed. COMPARISON: CT dated 07/22/2020 FINDINGS: Evaluation of peripheral pulmonary arteries limited due to motion artifact. No large centra l pulmonary embolism. Cardiomegaly. Moderate bilateral pleural effusions. There is mediastinal lympha denopathy. Significant progression of extensive bilateral airspace consolidation, consistent with pne umonia. No pneumothorax. Focal nodular consolidation of the lingula has decreased in size, likely inf ectious/inflammatory. There is splenomegaly. IMPRESSION: 1. No large central pulmonary embolism. Evaluation of peripheral pulmonary arteries limited by motion . 2: Interval development of extensive bilateral airspace consolidation, consistent with pneumonia. 3: Enlarging moderate bilateral pleural effusions. 4: Mediastinal lymphadenopathy, likely reactive. Reviewed, dictated and finalized at location A. R STACKER IMPRESSION: 1. No large central pulmonary embolism. Evaluation of peripheral pulmonary kaitlin waldo limited by motion. 2: Interval development of extensive bilateral airspace consolidation, consiste nt with pneumonia. 3: Enlarging moderate bilateral pleural effusions. 4: Mediastinal lymphadenopathy, likely reactive.
--- NOTE | ~2020-08-19 | XR_ITS ---
EXAMINATION: XR abdomen obstructive series DATE: 08/19/2020 15:42 INDICATION: Abdominal pain TECHNIQUE: Supine and upright views of the abdomen. FINDINGS: Comparison to 01/21/2012 There is bilateral airspace disease. Small right pleural effusion. Spinal stimulator leads are noted. . There is a nonobstructive bowel gas pattern. Gas and stool are seen throughout the colon to the lev el of the rectum. There is no free air. There is a catheter in the bladder. Small amount of contrast present in the bladder. There is dynamic compression screw transfixing the right femoral neck. Cardi omegaly. IMPRESSION: 1. Nonobstructive bowel gas pattern. 2: Cardiomegaly with bilateral airspace disease which may represent edema or pneumonia. 3: Small right pleural effusion. Reviewed, dictated and finalized at location A. T METAL ERECTOR IMPRESSION: 1. Nonobstructive bowel gas pattern. 2: Cardiomegaly with bilateral airspace disease which may represent edema or pn eumonia. 3: Small right pleural effusion.
--- NOTE | 2020-08-19 08:15 | ED.SOB ---
HPI - SOB/Dyspnea General Chief Complaint: Shortness of Breath/Dyspnea Stated Complaint: SOB, COVID + Source: patient and EMS Mode of arrival: EMS Limitations: no limitations History of Present Illness HPI Narrative: Patient is an 80-year-old male who has a history of mild dysplastic syndrome, chronic anemia, recent right intertrochanteric fracture, repaired 08/02, [facility] with a history of recent right hip repair, noted to be positive for Covid on 08/15, who presents for evaluation of shortness of breath. Patient reportedly found by staff this morning with oxygen saturations 86% on room air. Patient does not typically require any oxygen. Patient placed on 4 L via nasal cannula and transported to our facility for assessment. Patient is reporting chills and myalgias. He reports general malaise. No nausea or vomiting. No diarrhea. He reports mild, aching chest pain throughout his chest as well as shortness of breath. He reports wet cough. Patient states he does not wish to ever be intubated after I explained the procedure, but does consent to CPR If his heart were to stop. Related Data Home Medications Medication Instructions Recorded Confirmed pantoprazole [Protonix] 40 mg PO DAILY 07/22/20 08/19/20 acetaminophen 325 mg PO PRN PRN 08/02/20 08/19/20 ondansetron HCl [Zofran] 4 mg PO PRN PRN 08/02/20 08/19/20 trazodone 25 mg PO HS 08/02/20 08/19/20 diazepam 5 mg PO PRN 08/19/20 montelukast mg HS 08/19/20 08/19/20 Allergies Allergy/AdvReac Type Severity Reaction Status Date / Time No Known Allergies Allergy Verified 08/19/20 09:22 Review of Systems Review of Systems: Narrative: CONSTITUTIONAL: Reports chills EYES: Denies visual changes, redness, or discharge. ENT: Denies rhinorrhea, congestion, sore throat, or otalgia. CARDIOVASCULAR: Reporting chest pain without palpitations RESPIRATORY: Reports cough and shortness of breath GASTROINTESTINAL: Denies abdominal pain, nausea, vomiting, or diarrhea. GENITOURINARY: Denies dysuria or hematuria. SKIN: Denies rash or itching. MUSCULOSKELETAL: Denies back pain, joint pain, or myalgia. NEUROLOGIC: Denies headache, numbness, reports feeling weak PMFSH Past Medical History Medical History (Updated 08/19/20 @ 16:39 by Lilliam Durham MD) Chronic anemia Chronic back pain Depression Fracture of right hip requiring operative repair GERD without esophagitis Myelodysplastic syndrome Requiring frequent blood transfusions. Osteoarthritis Spondylosis of lumbar spine Surgical History Surgical History (Updated 08/19/20 @ 16:09 by Roc Nick MD) History of abdominal surgery Patient on answer as to what kind of surgery he had, but there is a low abdominal midline incision. History of repair of right rotator cuff Family History Family History Other Heart disease Social History Social History (Updated 08/19/20 @ 16:06 by Ron Landry MD) Social History: Surrogate decision maker: Nicolle Bah, daughter. 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 Smoking packs per day: 0.5 Smoking cigarettes per day: 10.0 Smoking status: Former smoker Tobacco type: cigarettes Alcohol intake: unknown Substance use: unknown Substance use type: does not use Additional living arrangements comments: Resides in [place]. for more than 10 years. Additional occupation/education comments: Retired from working in a [employer]. Gender identity (if verbalized by the patient): Male Spiritual care concerns: No Exam Narrative: Exam Narrative: GENERAL: Awake, alert, thin, weak appearing, elderly HEAD: Normocephalic, atraumatic. EYES: PERRLA and EOMI. ENT: Nares clear, no rhinorrhea or epistaxis. Mucous membranes dry NECK: Supple. CHEST: Audible crackles bilaterally, tachypneic, hypoxia, no expiratory wheezing HEART: T
[2020-08-19] MEDS: SODIUM CHLORIDE 0.9% IV 1,000 ML 999 ML IV CONT ×2 (08:46→08:58)
[2020-08-19 08:47] LABS: Alveolar/Arterial O2 Gradient 93.3 mmHg; Base Excess ABG -0.6 mEq/l (+/-2.0); Carboxyhemoglobin 0.8 % THb (0-2.0); Fractional Inspired Oxygen 28 %; HCO3 ABG 22.9 mEq/l (22.0-26.0); Methemoglobin ABG 0.6 %THb (0-1.5); Oxygen Content ABG 8.7 %vol (16.0-22.0); Oxygen Saturation ABG 95.1 % (95.0-100.0); Oxyhemoglobin 91.6 % THb (90.0-100.0); PCO2 ABG 31.7 mmHg (35.0-45.0); PO2 ABG 68.9 mmHg (80.0-100.0); PO2 FiO2 Ratio Arterial Blood 2.46 %; pH ABG 7.476 (7.350-7.450)
[2020-08-19 08:48] LABS: Device NASAL CANNULA; Modified Allen's Test Pass; Site Drawn RIGHT RADIAL; Total Hemoglobin 6.7 g/dL (12.0-18.0)
[2020-08-19 09:02] LABS: Basophils Percent Auto 0.5 % (0.2-1.2); Immature Granulocyte Absolute 0.09 K/mm3 (0.00-0.031); Lymphocytes Absolute Auto 0.54 K/mm3 (0.9-3.2); Lymphocytes Percent Auto 12.2 % (18.3-44.2); Mean Corpuscular HGB Conc 33.3 g/dl (32-36); Mean Corpuscular Volume 92.9 fl (80-100); Mean Platelet Volume 12.5 fl (7.4-10.4); Monocytes Absolute Auto 0.5 K/mm3 (0.1-0.6); Monocytes Percent Auto 10.6 % (2.6-8.5); Neutrophils Absolute Auto 3.3 K/mm3 (1.3-6.7); Neutrophils Percent Auto 74.7 % (45.5-73.1); Platelet Count Result 206 k/mm3 (150-375); Red Cell Distribution Width 21.7 % (11.5-14.5); White Blood Count 4.4 K/mm3 (4.5-10.0)
[2020-08-19 09:08] LABS: Hematocrit 19.5 % (42.0-52.0); Hemoglobin 6.5 g/dL (14.0-18.0)
[2020-08-19 09:09] LABS: INR 1.2; Partial Thromboplastin Time 32.5 SECONDS (22.3-36.8); Prothrombin Time 15.8 Seconds (11.1-14.7)
[2020-08-19 09:13] LABS: Lactic Acid Reflex 2.4 mmol/L (0.7-2.1)
[2020-08-19 09:15] LABS: Alanine Aminotransferase 40 U/L (4-50); Albumin Level 3.2 g/dL (3.5-5.1); Alkaline Phosphatase 204 U/L (38-126); Anion Gap 7 mmol/L (8-16); Aspartate Amino Transferase 50 U/L (17-59); Bilirubin,Total 1.2 mg/dL (0.2-1.3); Blood Urea Nitrogen 20 mg/dL (9-20); CRP 1.5 mg/dL (<1.0); Calcium 8.5 mg/dL (8.4-10.2); Carbon Dioxide 27 mmol/L (22-30); Chloride 102 mmol/L (98-107); Estimated CRCL calculation 77 ml/min; Estimated Glomerular Filt Rate > 60; Glucose 171 mg/dL (75-110); Lactate Dehydrogenase 576 U/L (313-618); Potassium 3.5 mmol/L (3.4-5.0); Sodium 136 mmol/L (137-145)
[2020-08-19 09:29] LABS: NT Pro B Type Natriuretic Pept 7830 PG/ML (5-100)
[2020-08-19 10:01] LABS: Add Urine Microscopic? YES; Appearance Urine Clear (Clear); Bilirubin Urine Negative (Negative); Blood Urine 1+ (Negative); Color Urine Amber (Yellow); Glucose Urine UA Negative (Negative); Ketones Urine Trace mg/dL (Negative); Leukocyte Esterase Ur Negative LEU/UL (Negative); Mucus Urine Few /lpf; Nitrate Urine Negative (Negative); Protein Urine 2+ mg/dL (Negative); RBC Urine 21-50 /hpf (0-2); WBC Urine 0-3 /hpf
--- NOTE | 2020-08-19 10:01 | PC.NURSE ---
o2 increased to 4 lpm nc for sat of 90-92
[2020-08-19 10:03] LABS: Specific Grav Ur 1.032 (1.001-1.035)
--- NOTE | 2020-08-19 10:04 | PC.NURSE ---
o2 increased to 6 lpm nc. notified of pt condition
--- NOTE | 2020-08-19 10:14 | PC.NURSE ---
pt placed on nrb mask at 15 lpm. awaiting bipap
--- NOTE | 2020-08-19 10:38 | PC.NURSE ---
pt now on bipap per resp therapy
[2020-08-19] MEDS: ASPIRIN 81 MG CHEWABLE TABLET 324 MG PO (10:39)
[2020-08-19] MEDS: FUROSEMIDE INJ 40 MG/4 ML VIAL 20 MG IV PUSH (10:39)
[2020-08-19 10:56] LABS: Alveolar/Arterial O2 Gradient 271.3 mmHg; Base Excess ABG -10.5 mEq/l (+/-2.0); Carboxyhemoglobin 0.5 % THb (0-2.0); Fractional Inspired Oxygen 70 %; HCO3 ABG 15.3 mEq/l (22.0-26.0); Methemoglobin ABG 0.5 %THb (0-1.5); Modified Allen's Test Pass; Oxygen Content ABG 9.3 %vol (16.0-22.0); Oxygen Saturation ABG 99.2 % (95.0-100.0); Oxyhemoglobin 96.8 % THb (90.0-100.0); PCO2 ABG 33.6 mmHg (35.0-45.0); PO2 ABG 191.7 mmHg (80.0-100.0); PO2 FiO2 Ratio Arterial Blood 2.74 %; Reduced Hemoglobin 2.2 %THb (0-5.0); Site Drawn RIGHT RADIAL; Total Hemoglobin 6.5 g/dL (12.0-18.0); pH ABG 7.277 (7.350-7.450)
[2020-08-19 10:57] LABS: Device NON-INVASIVE VENT; Non-Invasive Expiratory Pressure 6 CMH2O; Non-Invasive Inspiratory Pressure 12 CMH2O; Non-Invasive Vent Rate 12 /MIN
[2020-08-19 10:58] LABS: Ferritin > 2000.00 ng/mL (11.1-264)
[2020-08-19] MEDS: SODIUM CHLORIDE 0.9% IV 250 ML 30 ML IV CONT (11:18)
[2020-08-19 11:57] LABS: Reflex Lactic Acid Yes or No Add Lactic
--- NOTE | 2020-08-19 13:01 | WPDCNINT ---
Assessment and Plan Assessment and plan (1) Sepsis with acute hypoxic respiratory failure: Code(s): A41.9 - Sepsis, unspecified organism; R65.20 - Severe sepsis without septic shock; J96.01 - Acute respiratory failure with hypoxia Status: Acute Assessment and Plan: Patient with acute hypoxic respiratory failure, on BiPAP, will decrease inspiratory pressure to 9 and expiratory pressure to 5. 40% FiO2 -CT scan of the chest showed bilateral diffuse infiltrates, bilateral large pleural effusions -patient has been started on azithromycin and ceftriaxone, will add vancomycin since he has been at a intermediate facility -blood cultures have been obtained, will deescalate antibiotics once cultures are resulted -start bronchodilators (2) COVID-19: Code(s): U07.1 - COVID-19 Status: Acute Assessment and Plan: COVID-19 positive on 08/15 at the intermediate facility -worsening chest x-ray with increasing shortness of breath and oxygen requirements -will start dexamethasone 6 mg IV times 10 doses -patient will also be started on Remdesivir -inflammatory markers are elevated, will continue to monitor (3) Elevated troponin: Code(s): R77.8 - Other specified abnormalities of plasma proteins Status: Acute Assessment and Plan: Troponins were elevated to 2.0 in the ED, EKG showed ST abnormalities in the lateral leads consistent with ischemia -appreciate Cardiology evaluation recommendations, thought processes that this is a type 2 infarction related to multitude of comorbidities and respiratory distress along with COVID-19 pneumonia. This could also be secondary to severe anemia -patient has been started on aspirin 81 mg p.o. daily. -continue metoprolol 25 mg p.o. b.i.d., atorvastatin. -EKG will be repeated, -will obtain echocardiogram -trend troponin levels -no heparinization due to patient being severely anemic and going to be transfused packed RBCs (4) CHF (congestive heart failure): Code(s): I50.9 - Heart failure, unspecified Status: Acute Assessment and Plan: Patient with history of diastolic dysfunction, echocardiogram has been ordered to evaluate heart function and structural function (5) DVT prophylaxis: Code(s): Z29.9 - Encounter for prophylactic measures, unspecified Status: Acute Assessment and Plan: SCDs (6) Myelodysplastic syndrome: Code(s): D46.9 - Myelodysplastic syndrome, unspecified Status: Chronic Assessment and Plan: Chronic, anemic, will transfuse packed RBCs -patient has a history of blood transfusion due to myelodysplastic syndrome (7) Anemia: Code(s): D64.9 - Anemia, unspecified Status: Acute Assessment and Plan: Hemoglobin of 6.5 in the ED, transfuse 1 unit of packed RBCs -will monitor his H&H Additional Plan Discussed with Nicolle, patient's daughter, updated with patient's condition and plan of care. She is aware that patient has bilateral COVID-19 pneumonia, anemia secondary to myelodysplastic syndrome and will be receiving 1 unit of packed RBCs. I did discuss with the daughter regarding starting dexamethasone and Remdesivir. I did discuss with her regarding code status to which she said no intubation and no CPR, if his heart stops will let him go in peace and dignity Code status: No CPR, no intubation Critical care time spent: 46 minutes Due to a high probability of clinically significant, life threatening deterioration, the patient required my highest level of preparedness to intervene emergently and I personally spent this critical care time directly and personally managing the patient. This critical care time included obtaining a history; examining the patient; pulse oximetry; ordering and review of studies; arranging urgent treatment with development of a management plan; evaluation of patient's response to treatment; frequent reassessment; and discussions with other providers. It w
--- NOTE | 2020-08-19 13:25 | PM.CNCAR ---
Assessment and Plan Assessment and plan (1) Elevated troponin: Code(s): R77.8 - Other specified abnormalities of plasma proteins Status: Acute Assessment and Plan: I think that this is predominantly a type 2 infarction related to a multitude of comorbidities and coexisting conditions including and most importantly COVID infection. He also has severe anemia. I do no think that he has had an acute plaque rupture but does likely have underlying CAD which is worsened by the aforementioned problems. At this point will start him on aspirin 81 mg p.o. daily. Metoprolol tartrate 25 mg p.o. b.i.d.. Atorvastatin 20 mg daily. Will repeat an EKG now. Will check a 2D echocardiogram with Doppler. Will continue to trend his troponins. Would actually hold off on full heparinization given his worsening anemia at least at this point until after transfusion and depending on his trend of troponin. (2) COVID-19: Code(s): U07.1 - COVID-19 Status: Acute Assessment and Plan: Supportive care per bottle and glass inspector and hospitalist (3) Myelodysplastic syndrome: Code(s): D46.9 - Myelodysplastic syndrome, unspecified Status: Chronic Assessment and Plan: Transfusion packed red blood cells (4) Sepsis with acute hypoxic respiratory failure: Code(s): A41.9 - Sepsis, unspecified organism; R65.20 - Severe sepsis without septic shock; J96.01 - Acute respiratory failure with hypoxia Status: Acute Assessment and Plan: Related to COVID pneumonia Despite an elevated BNP, I do not think this patient has active or acute heart failure. Significantly elevated BNPs are being seen frequently in patients with COVID pneumonia. Usually these patients are in fact intravascularly dry rather than in heart failure. This is likely the case with Mr. Ruvalcaba also History of Present Illness History of Present Illness Consult date/time: 08/19/20 13:25 Requesting physician: Lilliam Durham MD Consult reason: Other (Elevated troponin, COVID: Pneumonia) Reason For Visit: Respiratory failure/Acute on chronic anemia/COVID Narrative: Date of service 08/19/20: Reason for consultation: elevated troponin, abnormal EKG History: Patient is an 80-year-old male who has a multitude of issues including myelodysplastic syndrome, recent hip fracture status post repair, GERD, depression, anemia. He is in a nursing facility and tested positive for COVID on 08/15/2020. He was brought to the hospital because shortness of breath and decreased oxygen saturations. He was satting 86% on room air. Typically he is only on 4 L via nasal cannula. Upon arrival he was found to be tachycardic with EKG showing some lateral ST abnormalities consistent with ischemia. Troponin was modestly elevated at 2.0. Cardiology consultation was therefore requested. He is found to be more anemic than typical. Shortness of breath his significant he is currently advanced to a BiPAP. Patient denies any chest pain. Denies any syncope, recent paroxysmal nocturnal dyspnea, orthopnea, edema or palpitations. His breathing is better and he states that he feels better than he did earlier today. Review of Systems Review of Systems: All systems reviewed & are unremarkable except as noted in HPI and below Constitutional: Constitutional: Reports body ache(s), Reports chills and Reports weakness Eyes: Eyes: Denies blurry vision ENT: Reports Normal hearing present Cardiovascular: Cardiovascular: Denies chest pain Respiratory: Respiratory: Reports cough and Reports dyspnea Gastrointestinal: Gastrointestinal: Denies abdominal pain Genitourinary: Genitourinary: Denies dysuria Musculoskeletal: Musculoskeletal: Denies back pain and Denies neck pain Integumentary/Breasts: Skin/Breast: Denies dry skin Neurologic: Denies headache(s) Psychiatric: Psychiatric: Denies anxiety and Denies confusion Endocrine: Endocrine: Denies fatigue Hematologic/Lymphatic:
--- NOTE | 2020-08-19 13:53 | ECG_ITS ---
Measurements Intervals [place] Rate: 98 P: -40 ME: 152 QRS: -16 QRSD: 88 T: 92 QT: 371 QTc: 475 Interpretive Statements SINUS RHYTHM LOW QRS VOLTAGE IN LIMB LEADS CANNOT RULE OUT SEPTAL INFARCT, AGE INDETERMINATE BORDERLINE ST-T WAVE ABNORMALITY- I, AVL BASELINE WANDER- V4-V6 ABNORMAL ECG Electronically Signed On 08-20-2020 7:22:01 PACKING ROOM INSPECTOR by Axel Dover D.O.
[2020-08-19] MEDS: REMDESIVIR 200 MG/NS 250 ML 200 MG/250 ML BAG 250 MG IVPB (14:08)
[2020-08-19 15:22] LABS: Hematocrit 23.2 % (42.0-52.0); Hemoglobin 7.7 g/dL (14.0-18.0); Mean Corpuscular HGB Conc 33.2 g/dl (32-36); Mean Corpuscular Hemoglobin 30.7 pg (26-34); Mean Corpuscular Volume 92.4 fl (80-100); Mean Platelet Volume 12.6 fl (7.4-10.4); Platelet Count Result 187 k/mm3 (150-375); Red Blood Count 2.51 M/mm3 (4.6-6.20); White Blood Count 9.7 K/mm3 (4.5-10.0)
[2020-08-19 15:37] LABS: Alanine Aminotransferase 40 U/L (4-50)
[2020-08-19 15:44] LABS: Lactic Acid Reflex 3.3 mmol/L (0.7-2.1)
--- NOTE | 2020-08-19 16:02 | PM.IMHP ---
H&P: HPI History of Present Illness Date/Time: 08/19/20 16:02 Chief Complaint: Hypoxia Narrative: Date of visit 08/19. Jacque Ruvalcaba is a 80 year old male with myelodysplasia and chronic anemia discharged from [facility] on 08/08/2020 after repair of fractured right femur 08/03/20. He was conval[facility]cing at local [facility] and COVID test returned positive 08/15. He became hypoxic today and was sent to the emergency room where he is found to have bilateral infiltrates, elevated troponin, and hypoxia. He is admitted for evaluation and treatment of the same. Patient groans and will not answer any questions CTA revealed no PE just infiltrates Review of Systems Review of Systems: Narrative: Unobtainable at this time due to his mental status PMFSH Past Medical History Medical History (Updated 08/19/20 @ 16:17 by Ron Landry MD) Chronic anemia Chronic back pain Depression Fracture of right hip requiring operative repair GERD without esophagitis Myelodysplastic syndrome Requiring frequent blood transfusions. Osteoarthritis Spondylosis of lumbar spine Surgical History Surgical History (Updated 08/19/20 @ 16:09 by Roc Nick MD) History of abdominal surgery Patient on answer as to what kind of surgery he had, but there is a low abdominal midline incision. History of repair of right rotator cuff Family History Family History Other Heart disease Social History Social History (Updated 08/19/20 @ 16:06 by Ron Landry MD) Social History: Surrogate decision maker: Nicolle Bah, daughter. 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 Smoking packs per day: 0.5 Smoking cigarettes per day: 10.0 Smoking status: Former smoker Tobacco type: cigarettes Alcohol intake: unknown Substance use: unknown Substance use type: does not use Additional living arrangements comments: Resides in [place]. for more than 10 years. Additional occupation/education comments: Retired from working in a [employer]. Gender identity (if verbalized by the patient): Male Spiritual care concerns: No Meds Home Medications and Allergies Home Medications Medication Instructions Recorded Confirmed Type pantoprazole [Protonix] 40 mg PO DAILY 07/22/20 08/19/20 History acetaminophen 325 mg PO PRN PRN 08/02/20 08/19/20 History lidocaine [Lidoderm] 2 patch TRANSDERMAL DAILY 30 Days 08/02/20 08/19/20 Rx #30 ea ondansetron HCl [Zofran] 4 mg PO PRN PRN 08/02/20 08/19/20 History trazodone 25 mg PO HS 08/02/20 08/19/20 History buspirone 5 mg PO BID 14 Days #28 tablet 08/08/20 08/19/20 Rx docusate sodium 100 mg PO BID PRN #10 cap 08/08/20 08/19/20 Rx escitalopram oxalate 10 mg PO DAILY 14 Days #14 tablet 08/08/20 08/19/20 Rx fondaparinux [Arixtra] 2.5 mg SUBCUT DAILY 23 Days #11.5 08/08/20 08/19/20 Rx ml gabapentin 300 mg PO TID 14 Days #42 cap 08/08/20 08/19/20 Rx hydrocodone-acetaminophen 1 tab PO Q4-6H PRN #42 tablet 08/08/20 08/19/20 Rx lorazepam 0.5 mg PO BID PRN #14 tablet 08/08/20 08/19/20 Rx magnesium hydroxide [Milk of 30 ml PO BID PRN #300 ml 08/08/20 08/19/20 Rx Magnesia] diazepam 5 mg PO PRN 08/19/20 History montelukast mg HS 08/19/20 08/19/20 History Allergies Allergy/AdvReac Type Severity Reaction Status Date / Time No Known Allergies Allergy Verified 08/19/20 09:22 Vital Signs Vital Signs - 24 hr 08/19/20 08:28 08/19/20 08:35 08/19/20 08:37 Temperature 37.2 C Pulse Rate 139 H 138 H Respiratory Rate 22 H Blood Pressure 121/56 L Pulse Oximetry 96 96 08/19/20 08:39 08/19/20 08:40 08/19/20 08:45 Temperature Pulse Rate 138 H 138 H 137 H Respiratory Rate 25 H 26 H 28 H Blood Pressure 113/56 L Pulse Oximetry 96 97 97 08/19/20 08:46 08/19/20 09:00 08/19/20 09:01 Temperature Pulse Rate 137 H 143 H 143 H Respiratory Rate 25 H 30 H 29 H Blood Pressur
--- NOTE | 2020-08-19 16:03 | PDONCCN ---
HPI - Date of Consult Date/Time: 08/19/20 16:03 Requesting Physician: Ron Landry MD Primary Care Provider: Jluis Luu MD - Consult Narrative Reason for consult: Anemia secondary to myelodysplastic syndrome Narrative: Jacque Ruvalcaba is a 80 year old male with the [facility] resident has a history of myelodysplastic syndrome with recent right intertrochanteric fracture and surgery done on August 02. He was brought into the hospital with increasing shortness of breath. He was also complaining of mild chest discomfort and cough. His oxygen saturation was 86% on room air. He was tested positive for COVID-19 infection. Chest x-ray showed bilateral pneumonia. He is a poor historian. His hemoglobin was 6.5. He received 1 unit of packed red blood cells with improvement in hemoglobin which is up to 7.7. He denies any bleeding and bruising. His other labs showed normal creatinine and elevated serum ferritin. LDH was also normal. Review of Systems - Review of Systems All systems reviewed & are unremarkable except as noted in HPI and bel - Neurologic Reports hearing normal, Reports weakness, Denies confusion, Denies headache(s) [facility] Medical History: Medical History (Last Reviewed 08/19/20 @ 13:30 by Madi Haney MD) Chronic anemia Chronic back pain Depression GERD without esophagitis Myelodysplastic syndrome Requiring frequent blood transfusions. Osteoarthritis Spondylosis of lumbar spine Surgical History: Surgical History (Last Reviewed 08/19/20 @ 13:30 by Madi Haney MD) History of abdominal surgery Patient on answer as to what kind of surgery he had, but there is a low abdominal midline incision. History of repair of right rotator cuff Family History: Family History (Last Reviewed 08/19/20 @ 13:30 by Madi Haney MD) Other Heart disease - Social History Social History: Social History (Last Reviewed 08/19/20 @ 13:30 by Madi Haney MD) Gender Identity: Gender identity (if verbalized by the patient): Male Alcohol Use: Alcohol intake: unknown Substance Use: Substance use: unknown Substance use type: does not use Others: Spiritual care concerns: No Smoking Status: Smoking status: Former smoker Tobacco type: cigarettes Smoking Pack-years: Smoking packs per day: 0.5 Smoking cigarettes per day: 10.0 Meds Home Medications Medication Instructions Recorded Confirmed Type pantoprazole [Protonix] 40 mg PO DAILY 07/22/20 08/19/20 History acetaminophen 325 mg PO PRN PRN 08/02/20 08/19/20 History lidocaine [Lidoderm] 2 patch TRANSDERMAL DAILY 30 Days 08/02/20 08/19/20 Rx #30 ea ondansetron HCl [Zofran] 4 mg PO PRN PRN 08/02/20 08/19/20 History trazodone 25 mg PO HS 08/02/20 08/19/20 History buspirone 5 mg PO BID 14 Days #28 tablet 08/08/20 08/19/20 Rx docusate sodium 100 mg PO BID PRN #10 cap 08/08/20 08/19/20 Rx escitalopram oxalate 10 mg PO DAILY 14 Days #14 tablet 08/08/20 08/19/20 Rx fondaparinux [Arixtra] 2.5 mg SUBCUT DAILY 23 Days #11.5 08/08/20 08/19/20 Rx ml gabapentin 300 mg PO TID 14 Days #42 cap 08/08/20 08/19/20 Rx hydrocodone-acetaminophen 1 tab PO Q4-6H PRN #42 tablet 08/08/20 08/19/20 Rx lorazepam 0.5 mg PO BID PRN #14 tablet 08/08/20 08/19/20 Rx magnesium hydroxide [Milk of 30 ml PO BID PRN #300 ml 08/08/20 08/19/20 Rx Magnesia] diazepam 5 mg PO PRN 08/19/20 History montelukast mg HS 08/19/20 08/19/20 History Allergies Allergy/AdvReac Type Severity Reaction Status Date / Time No Known Allergies Allergy Verified 08/19/20 09:22 Results - Labs CBC & Chem 7: 08/19/20 15:12 08/19/20 08:41 Labs: Short CBC 08/19/20 08/19/20 Range/Units 08:41 15:12 WBC 4.4 L 9.7 (4.5-10.0) K/mm3 Hgb 6.5 L* 7.7 L (14.0-18.0) g/dL Hct 19.5 L* 23.2 L (42.0-52.0) % Plt Count 206 187 (150-375) k/mm3 BMP 08/19/20 08:41 Sod
[2020-08-19] MEDS: FUROSEMIDE INJ 40 MG/4 ML VIAL IV PUSH (17:04)
[2020-08-19] MEDS: EPOETIN ALFA-EPBX 20,000 UNITS/ML VIAL 20000 UNITS SUB-Q (17:05)
--- NOTE | 2020-08-19 17:35 | ADMGEN ---
This patient, Jacque Ruvalcaba, was admitted to Intensive Care Unit-6 @ 1300. Patient/family oriented to hospital policies and general routines including ID bracelet, bed and alarms, visiting hours, pain management, procedures, bathroom and other care routines, personal items, smoking policy, room service/diet, and visiting hours. Information on how to activate the Rapid Response Team has been discussed. Patient/Family are encouraged to report perceived risks to care and to ask questions if they do not understand what they are told or what they should do.
[2020-08-19] MEDS: ENOXAPARIN 40 MG/0.4 ML SYRINGE SUB-Q (21:55)
[2020-08-19] MEDS: IPRATROPIUM BR 0.02% INH SOLN 0.5 MG/2.5 ML VIAL INHALATION (22:18)
[2020-08-19] MEDS: METOPROLOL TARTRATE 25 MG TABLET PO (22:18)
[2020-08-19] MEDS: LEVALBUTEROL NEB 1.25 MG/3 ML 0.63 MG INHALATION (22:18)
--- NOTE | 2020-08-19 23:30 | PC.NURSE ---
Assumed care of pt. at this time. Pt. noted to be restless and anxious tonight. Pt. continuously removes BiPAP despite redirection efforts. Pt. A&Ox1 at this time, continues to moan during assessment. Pt. able to answer simple questions. Pt. noted to have oxygen saturation of 98%-100% on 6L nasal cannula. Pt. tolerating well. Will continue to monitor pt.
[2020-08-20] VITALS (27 sets, daily range): BP systolic 94–127; BP diastolic 41–64; PULSE 77–97; RESP 18–28; TEMP 36.2–37.7; O2SAT 89–100; BMI 11.0
[2020-08-20] MEDS: LORazepam INJ (*CRX) 2 MG/ML VIAL 0.25 MG IV PUSH (00:46)
[2020-08-20] MEDS: ACETAMINOPHEN 325 MG TABLET 650 MG PO (00:48)
[2020-08-20] MEDS: LORazepam INJ (*CRX) 2 MG/ML VIAL 0.5 MG IV PUSH (02:07)
[2020-08-20] MEDS: LEVALBUTEROL NEB 1.25 MG/3 ML 0.63 MG INHALATION ×3 (02:53→15:16)
[2020-08-20] MEDS: IPRATROPIUM BR 0.02% INH SOLN 0.5 MG/2.5 ML VIAL INHALATION ×3 (02:53→15:16)
[2020-08-20] MEDS: OLANZapine 10 MG INJ VIAL IM (03:17)
[2020-08-20 04:57] LABS: Basophils Percent Auto 0.2 % (0.2-1.2); Immature Granulocyte Absolute 0.14 K/mm3 (0.00-0.031); Immature Granulocyte Percent A 1.5 % (0-0.5); Lymphocytes Percent Auto 8.4 % (18.3-44.2); Mean Corpuscular HGB Conc 33.3 g/dl (32-36); Mean Corpuscular Hemoglobin 30.8 pg (26-34); Mean Corpuscular Volume 92.3 fl (80-100); Mean Platelet Volume 12.8 fl (7.4-10.4); Monocytes Absolute Auto 0.4 K/mm3 (0.1-0.6); Monocytes Percent Auto 3.9 % (2.6-8.5); Neutrophils Absolute Auto 8.2 K/mm3 (1.3-6.7); Platelet Count Result 158 k/mm3 (150-375); Red Blood Count 2.08 M/mm3 (4.6-6.20); Red Cell Distribution Width 20.3 % (11.5-14.5); White Blood Count 9.5 K/mm3 (4.5-10.0)
[2020-08-20 05:08] LABS: Alanine Aminotransferase 37 U/L (4-50); Albumin Level 2.9 g/dL (3.5-5.1); Alkaline Phosphatase 164 U/L (38-126); Anion Gap 6 mmol/L (8-16); Aspartate Amino Transferase 58 U/L (17-59); Bilirubin,Total 0.8 mg/dL (0.2-1.3); Blood Urea Nitrogen 24 mg/dL (9-20); CRP 7.6 mg/dL (<1.0); Calcium 8.2 mg/dL (8.4-10.2); Carbon Dioxide 27 mmol/L (22-30); Chloride 103 mmol/L (98-107); Estimated CRCL calculation 59 ml/min; Estimated Glomerular Filt Rate > 60; Glucose 147 mg/dL (75-110); Magnesium 1.9 mg/dL (1.6-2.3); Phosphorus 4.4 mg/dL (2.5-4.5); Potassium 3.5 mmol/L (3.4-5.0); Sodium 136 mmol/L (137-145)
[2020-08-20 05:39] LABS: Hematocrit 19.2 % (42.0-52.0); Hemoglobin 6.4 g/dL (14.0-18.0)
[2020-08-20 05:40] LABS: Anisocytosis 1+ (NORMAL); Platelet Estimate Adequate (Adequate)
[2020-08-20 05:41] LABS: Hypochromasia 2+ (NORMAL)
[2020-08-20 05:45] LABS: Lactic Acid Reflex 4.1 mmol/L (0.7-2.1)
[2020-08-20 07:52] LABS: Reflex Lactic Acid Yes or No Add Lactic
--- NOTE | 2020-08-20 07:55 | ECG_ITS ---
Measurements Intervals Dow Rate: 81 P: 44 VA: 146 QRS: -20 QRSD: 96 T: 0 QT: 374 QTc: 436 Interpretive Statements SINUS RHYTHM WITH SINUS ARRHYTHMIA ANTEROSEPTAL INFARCT, AGE INDETERMINATE BORDERLINE ST-T WAVE ABNORMALITY- DIFFUSE LEADS BASELINE WANDER- V3-V6 ABNORMAL ECG Electronically Signed On 08-20-2020 16:56:47 VICE PRESIDENT TAX by Axel Dover D.O.
[2020-08-20] MEDS: ATORVASTATIN 20 MG TABLET PO (09:44)
[2020-08-20] MEDS: ASPIRIN 81 MG ENTERIC TABLET PO (09:44)
[2020-08-20] MEDS: METOPROLOL TARTRATE 25 MG TABLET PO ×2 (09:44→21:45)
[2020-08-20] MEDS: DEXAMETHASONE SOD PHOS INJ 4 MG/ML VIAL 6 MG IV PUSH (09:45)
[2020-08-20] MEDS: REMDESIVIR 100 MG/NS 250 ML 100 MG/250 ML BAG 250 MG IVPB (10:04)
[2020-08-20 10:07] LABS: Lactic Acid 1.5 mmol/L (0.7-2.1)
--- NOTE | 2020-08-20 10:18 | PM.PNCARD ---
Progress Note: A&P Assessment and Plan (1) Elevated troponin: Code(s): R77.8 - Other specified abnormalities of plasma proteins Status: Acute Assessment and Plan: Non-STEMI. Uncertain as to Whether or not this is related to acute plaque rupture or COVID myocarditis, micro embolization etc. regardless at this point given his worsening anemia despite transfusion, DNR/DNI status and the fact that he at this point is relatively stable, will not pursue invasive workup at this point. Continue low-dose aspirin again no anticoagulation given his worsening anemia despite transfusion. Continue metoprolol, atorvastatin. (2) COVID-19: Code(s): U07.1 - COVID-19 Status: Acute Assessment and Plan: Supportive care per buckle inspector and hospitalist (3) Myelodysplastic syndrome: Code(s): D46.9 - Myelodysplastic syndrome, unspecified Status: Chronic Assessment and Plan: Transfusion packed red blood cells (4) Sepsis with acute hypoxic respiratory failure: Qualifiers: Sepsis type: sepsis due to unspecified organism Severe sepsis shock status: without septic shock Qualified Code(s): A41.9 - Sepsis, unspecified organism; R65.20 - Severe sepsis without septic shock; J96.01 - Acute respiratory failure with hypoxia Code(s): A41.9 - Sepsis, unspecified organism; R65.20 - Severe sepsis without septic shock; J96.01 - Acute respiratory failure with hypoxia Status: Acute Assessment and Plan: Related to COVID pneumonia (5) Acute systolic (congestive) heart failure: Code(s): I50.21 - Acute systolic (congestive) heart failure Status: Acute Assessment and Plan: Continue beta-jayden, aspirin. Will add ARB when able. Will schedule furosemide 40 mg IV daily (6) Cardiomyopathy: Code(s): I42.9 - Cardiomyopathy, unspecified Status: Acute Assessment and Plan: Severe Subjective Date/time seen: 08/20/20 10:18 80-year-old admitted for respiratory distress, COVID positive, elevated troponins Date of service 08/20/2020: Much improved today. No longer on BiPAP or CPAP. Breathing easier Review of Systems Review of Systems: All systems reviewed & are unremarkable except as noted in HPI and below Constitutional: Constitutional: Reports body ache(s), Reports chills, Denies fatigue, Denies headache(s) and Reports weakness Eyes: Eyes: Denies blurry vision ENT: Reports Normal hearing present, Denies headache(s), Denies lip swelling and Denies neck pain Cardiovascular: Cardiovascular: Denies chest pain and Reports dyspnea Respiratory: Respiratory: Reports cough and Reports dyspnea Gastrointestinal: Gastrointestinal: Denies abdominal pain Genitourinary: Genitourinary: Denies dysuria Musculoskeletal: Musculoskeletal: Denies back pain and Denies neck pain Integumentary/Breasts: Skin/Breast: Denies dry skin Neurologic: Reports Normal hearing present, Denies confusion, Denies headache(s) and Reports weakness Psychiatric: Psychiatric: Denies anxiety and Denies confusion Endocrine: Endocrine: Denies fatigue Hematologic/Lymphatic: Hematologic/Lymphatic: Denies easy bleeding and Denies easy bruising Allergic/Immunologic: Allergic/Immunologic: Denies GI upset with certain foods and Denies lip swelling Exam Narrative: Exam Narrative: Awake Const: General: comfortable HENMT: General nose exam: Normal nares present Eyes: Sclera: sclerae normal Cardio: Rate: regular rate Rhythm: regular rhythm Skin: General skin exam: normal color Neuro: General: No confusion Extrem: General: normal to inspection and no edema Psych: Affect: normal affect Objective Data Vital Signs Vital Signs: Vital Signs - 24 hr 08/19/20 10:25 08/19/20 11:13 08/19/20 11:30 Temperature 36.1 C L 36.6 C Pulse Rate 130 H 129 H 135 H Respiratory Rate 30 H 28 H 33 H Blood Pressure 126/58 L 140/59 L Pulse Oximetry 100 98 100 08/19/20
--- NOTE | 2020-08-20 13:43 | WPDINTPN ---
Progress Note: A&P Assessment and Plan (1) Sepsis with acute hypoxic respiratory failure: Qualifiers: Sepsis type: sepsis due to unspecified organism Severe sepsis shock status: without septic shock Qualified Code(s): A41.9 - Sepsis, unspecified organism; R65.20 - Severe sepsis without septic shock; J96.01 - Acute respiratory failure with hypoxia Code(s): A41.9 - Sepsis, unspecified organism; R65.20 - Severe sepsis without septic shock; J96.01 - Acute respiratory failure with hypoxia Status: Acute Assessment and Plan: Patient with acute hypoxic respiratory failure. He was taken off BiPAP and currently requiring 1-2 L of oxygen through nasal cannula. -CT scan of the chest showed bilateral diffuse infiltrates, bilateral large pleural effusions more on the right side. No PE noted. -empiric antibiotic with ceftriaxone and vancomycin. Will stop azithromycin. -cultures have been negative so far. -continue bronchodilators (2) COVID-19: Code(s): U07.1 - COVID-19 Status: Acute Assessment and Plan: COVID-19 positive on 08/15 at the [facility] -worsening chest x-ray with increasing shortness of breath and oxygen requirements. CTA was negative for PE but did show bilateral extensive airspace disease. -will continue dexamethasone 6 mg IV times 10 doses -patient will also be continued on Remdesivir for total of 5 doses -inflammatory markers are elevated, will continue to monitor (3) Elevated troponin: Code(s): R77.8 - Other specified abnormalities of plasma proteins Status: Acute Assessment and Plan: Troponins were elevated to 2.0 in the ED, EKG showed ST abnormalities in the lateral leads consistent with ischemia -appreciate Cardiology evaluation recommendations, thought processes that this is a type 2 infarction related to multitude of comorbidities and respiratory distress along with COVID-19 pneumonia. This could also be secondary to severe anemia -continue metoprolol 25 mg p.o. b.i.d., atorvastatin. Continue aspirin. -echo showed diffuse hypokinesia with ejection fraction of 15-20%. -trend troponin levels -no heparinization due to patient being severely anemic and going to be transfused packed RBCs. He will be given a dose of Lasix after the transfusion. (4) CHF (congestive heart failure): Qualifiers: Heart failure type: other Qualified Code(s): I50.9 - Heart failure, unspecified Code(s): I50.9 - Heart failure, unspecified Status: Acute Assessment and Plan: Patient with history of diastolic dysfunction. Now echocardiogram is showing diffuse hypokinesia with ejection fraction of 15-20%. He has been started on IV Lasix with 40 mg twice a day. Strict intake output record. Continue to monitor renal parameters and electrolytes. Continue metoprolol. May and RENO inhibitor/ARB sometime later when hemodynamics are stable. May need thoracentesis on the right side to improve his respiratory dynamics. (5) DVT prophylaxis: Code(s): Z29.9 - Encounter for prophylactic measures, unspecified Status: Acute Assessment and Plan: SCDs because of severe anemia. (6) Myelodysplastic syndrome: Code(s): D46.9 - Myelodysplastic syndrome, unspecified Status: Chronic Assessment and Plan: Chronic, anemic, will transfuse packed RBCs for keeping hemoglobin above 7. Will be transfuse 1 unit of PRBC today again. -patient has a history of blood transfusion due to myelodysplastic syndrome (7) Anemia: Code(s): D64.9 - Anemia, unspecified Status: Acute Assessment and Plan: Has received 2 units of blood so far. -will monitor his H&H and keep hemoglobin above 7. Additional Plan Intensivisit discussed with Nicolle, patient's daughter, updated with patient's condition and plan of care. She is aware that patient has bilateral COVID-19 pneumonia, anemia secondary to myelodysplastic syndrome and will be receiving
[2020-08-20] MEDS: FUROSEMIDE INJ 40 MG/4 ML VIAL IV PUSH (14:00)
--- NOTE | 2020-08-20 14:36 | PM.IMPN ---
Progress Note: A&P Assessment and Plan (1) Sepsis with acute hypoxic respiratory failure: Qualifiers: Sepsis type: sepsis due to unspecified organism Severe sepsis shock status: without septic shock Qualified Code(s): A41.9 - Sepsis, unspecified organism; R65.20 - Severe sepsis without septic shock; J96.01 - Acute respiratory failure with hypoxia Code(s): A41.9 - Sepsis, unspecified organism; R65.20 - Severe sepsis without septic shock; J96.01 - Acute respiratory failure with hypoxia Status: Acute Assessment and Plan: Secondary to pneumonia probable COVID related and probable some degree of congestive heart failure. Saturating well on room air.. (2) COVID-19: Code(s): U07.1 - COVID-19 Status: Acute Assessment and Plan: Positive results and he became hypoxic 08/19, remdesivir and Decadron started 08/19,D#2 (3) Pneumonia: Qualifiers: Laterality: bilateral Lung location: unspecified part of lung Pneumonia type: due to unspecified organism Qualified Code(s): J18.9 - Pneumonia, unspecified organism Code(s): J18.9 - Pneumonia, unspecified organism Status: Acute Assessment and Plan: Probable secondary to COVID but cultured and placed on broad-spectrum antibiotics and will continue ceftriaxone and vancomycin (4) Myelodysplastic syndrome: Code(s): D46.9 - Myelodysplastic syndrome, unspecified Status: Chronic Assessment and Plan: With chronic anemia. Receive 4 units of packed cells during most recent hospitalization. Would like to transfuse to hemoglobin of 8 and monitor closely Oncology has seen and Epogen has been ordered HGB 6.4 this a.m. and 2nd unit of packed cells ordered (5) Elevated troponin: Code(s): R77.8 - Other specified abnormalities of plasma proteins Status: Acute Assessment and Plan: Cardiology feels it is a type 2 infarct and not and true ischemic event. Thought secondary to the COVID as well as the anemia. Treat his COVID and transfuse. Echocardiogram EF of 15-20% suggests in either ischemia or myocarditis from the Covid. Continue beta-jayden, aspirin, and statin Along with IV diuresis. If blood pressure can tolerated will add Rickey or ARB later (6) CHF (congestive heart failure): Qualifiers: Heart failure type: other Qualified Code(s): I50.9 - Heart failure, unspecified Code(s): I50.9 - Heart failure, unspecified Status: Acute Assessment and Plan: History of diastolic heart failure but echo reveals ejection fraction 50-25% with diffuse hypokinesis suggesting as above either myocarditis or possible ischemia. Beta-jayden has been added with diuresis and possible ARB or Rickey later (7) DVT prophylaxis: Code(s): Z29.9 - Encounter for prophylactic measures, unspecified Status: Acute Assessment and Plan: Lovenox with Covid and no evidence of GI blood loss despite low hemoglobin Subjective Date/time seen: 08/20/20 14:36 Interval history: Date of visit 08/20. 80-year-old status post repair fracture right femur 08/03/2020 admitted to hospital with hypoxia and respiratory failure secondary to pneumonia with positive Covid on 08/15. Long history of recurrent transfusion for myelodysplastic syndrome then troponins were elevated during this hospitalization. Much improved this a.m. conversant and not complaining of any shortness of breath or discomfort. Echo read returned with ejection fraction of 15-20% Exam Narrative: Exam Narrative: Blood pressure 104/50 pulse is 76 saturating 95% on RA Pupil equal reactive to light Lungs decreased breath sounds no definite consolidation or wheezing and hear no rales CV no murmurs Abdomen is soft nontender bowel sounds active Extremities without edema dorsalis pedis posterior tibial 1+ surgical wound right hip well-healed Neuro alert and talking though slightly confuse but much improved from 08/19 Objective D
[2020-08-20 14:44] LABS: Basophils Percent Auto 0.2 % (0.2-1.2); Immature Granulocyte Absolute 0.11 K/mm3 (0.00-0.031); Immature Granulocyte Percent A 1.7 % (0-0.5); Lymphocytes Absolute Auto 0.44 K/mm3 (0.9-3.2); Lymphocytes Percent Auto 6.7 % (18.3-44.2); Mean Corpuscular HGB Conc 33.3 g/dl (32-36); Mean Corpuscular Hemoglobin 30.3 pg (26-34); Mean Corpuscular Volume 90.9 fl (80-100); Mean Platelet Volume 12.8 fl (7.4-10.4); Monocytes Absolute Auto 0.3 K/mm3 (0.1-0.6); Monocytes Percent Auto 3.8 % (2.6-8.5); Neutrophils Absolute Auto 5.7 K/mm3 (1.3-6.7); Neutrophils Percent Auto 87.6 % (45.5-73.1); Platelet Count Result 154 k/mm3 (150-375); Red Blood Count 2.31 M/mm3 (4.6-6.20); Red Cell Distribution Width 18.9 % (11.5-14.5); White Blood Count 6.5 K/mm3 (4.5-10.0)
[2020-08-20 15:08] LABS: Hypochromasia 1+ (NORMAL); Platelet Estimate Adequate (Adequate)
[2020-08-20 15:09] LABS: Anisocytosis 2+ (NORMAL)
[2020-08-20] MEDS: POTASSIUM CHLORIDE 20 MEQ PACKET (FOR LIQUID) 40 MEQ (17:20)
[2020-08-20] MEDS: busPIRone HCL 5 MG TABLET PO (17:20)
[2020-08-20] MEDS: GABAPENTIN 300 MG CAPSULE PO (17:20)
--- NOTE | 2020-08-20 19:09 | PC.NURSE ---
190 pt arrived from ICU 6 to room 324, alert, no distress. resp even nonlabored. call light within reach.
--- NOTE | 2020-08-20 19:09 | PC.NURSE ---
Pt transferred to room 324 with tele, report given to RN. Dentures and cell phone sent with patient, NSR on monitor, no distress at time of transfer.
--- NOTE | 2020-08-20 21:33 | PC.NURSE ---
Unit finished before 1899. Not charted transfused by dayshift nurse.
[2020-08-20] MEDS: traZODone HCL 25 MG TABLET PO (21:45)
[2020-08-20] MEDS: MONTELUKAST SODIUM 10 MG TABLET PO (21:45)
[2020-08-20] MEDS: SODIUM CHLORIDE 0.9% IV 250 ML 30 ML IV CONT (21:46)
[2020-08-20] MEDS: ENOXAPARIN 40 MG/0.4 ML SYRINGE SUB-Q (21:46)
[2020-08-21] VITALS (16 sets, daily range): BP systolic 95–117; BP diastolic 46–60; PULSE 62–90; RESP 18–28; TEMP 36.3–37.1; O2SAT 87–100
[2020-08-21] MEDS: LEVALBUTEROL NEB 1.25 MG/3 ML 0.63 MG INHALATION ×4 (02:57→20:22)
[2020-08-21] MEDS: IPRATROPIUM BR 0.02% INH SOLN 0.5 MG/2.5 ML VIAL INHALATION ×4 (02:57→20:22)
[2020-08-21 07:18] LABS: Hemoglobin 8.4 g/dL (14.0-18.0); Mean Corpuscular HGB Conc 33.6 g/dl (32-36); Mean Corpuscular Hemoglobin 30.2 pg (26-34); Mean Corpuscular Volume 89.9 fl (80-100); Mean Platelet Volume 12.6 fl (7.4-10.4); Platelet Count Result 167 k/mm3 (150-375); Red Blood Count 2.78 M/mm3 (4.6-6.20); Red Cell Distribution Width 18.5 % (11.5-14.5); White Blood Count 5.6 K/mm3 (4.5-10.0)
[2020-08-21 07:30] LABS: Lactic Acid Reflex 1.4 mmol/L (0.7-2.1)
[2020-08-21 07:32] LABS: Alanine Aminotransferase 41 U/L (4-50); Anion Gap 5 mmol/L (8-16); Blood Urea Nitrogen 31 mg/dL (9-20); Calcium 8.5 mg/dL (8.4-10.2); Carbon Dioxide 30 mmol/L (22-30); Chloride 102 mmol/L (98-107); Estimated CRCL calculation 67 ml/min; Estimated Glomerular Filt Rate > 60; Glucose 118 mg/dL (75-110); Phosphorus 3.3 mg/dL (2.5-4.5); Potassium 3.5 mmol/L (3.4-5.0); Sodium 137 mmol/L (137-145)
[2020-08-21] MEDS: FUROSEMIDE INJ 40 MG/4 ML VIAL IV PUSH ×2 (08:23→12:05)
[2020-08-21] MEDS: POTASSIUM CHLORIDE 20 MEQ TABLET 40 MEQ PO (08:23)
[2020-08-21] MEDS: DEXAMETHASONE SOD PHOS INJ 4 MG/ML VIAL 6 MG IV PUSH (08:23)
[2020-08-21] MEDS: PANTOPRAZOLE 40 MG TABLET PO (08:24)
[2020-08-21] MEDS: LIDOCAINE 5% PATCH 2 PATCH TRANSDERM (08:24)
[2020-08-21] MEDS: busPIRone HCL 5 MG TABLET PO ×2 (08:24→16:15)
[2020-08-21] MEDS: GABAPENTIN 300 MG CAPSULE PO ×3 (08:24→16:15)
[2020-08-21] MEDS: ASPIRIN 81 MG ENTERIC TABLET PO (08:24)
[2020-08-21] MEDS: ATORVASTATIN 20 MG TABLET PO (08:24)
[2020-08-21] MEDS: METOPROLOL TARTRATE 25 MG TABLET PO ×2 (08:24→20:52)
[2020-08-21] MEDS: REMDESIVIR 100 MG/NS 250 ML 100 MG/250 ML BAG 250 MG IVPB (09:57)
--- NOTE | 2020-08-21 11:07 | PM.PNCARD ---
Progress Note: A&P Assessment and Plan (1) Elevated troponin: Code(s): R77.8 - Other specified abnormalities of plasma proteins Status: Acute Assessment and Plan: Non-STEMI. Uncertain as to Whether or not this is related to acute plaque rupture or COVID myocarditis, micro embolization etc. I did have an extensive conversation with the patient's well as the patient's daughter today. His multiple comorbid problems at baseline and has been due to her eating for years SP especially since the of his . He has a severely weak heart muscle, COVID infection, recent fall and MDS. After having at this conversation with the patient's daughter as well as patient herself, hospice could be a consideration and they are interested. Her main goal is to get him home to past at her house. Will not pursue invasive workup therefore. Will try to treat him medically as best as possible. Will give him an additional dose of furosemide 40 mg IV x1 in addition to the furosemide he already received today. Replace potassium 40 mEq p.o. x1. (2) COVID-19: Code(s): U07.1 - COVID-19 Status: Acute Assessment and Plan: Supportive care per changeover operator and hospitalist (3) Myelodysplastic syndrome: Code(s): D46.9 - Myelodysplastic syndrome, unspecified Status: Chronic Assessment and Plan: Status post transfusion of packed red blood cells (4) Sepsis with acute hypoxic respiratory failure: Qualifiers: Sepsis type: sepsis due to unspecified organism Severe sepsis shock status: without septic shock Qualified Code(s): A41.9 - Sepsis, unspecified organism; R65.20 - Severe sepsis without septic shock; J96.01 - Acute respiratory failure with hypoxia Code(s): A41.9 - Sepsis, unspecified organism; R65.20 - Severe sepsis without septic shock; J96.01 - Acute respiratory failure with hypoxia Status: Acute Assessment and Plan: Related to COVID pneumonia (5) Acute systolic (congestive) heart failure: Code(s): I50.21 - Acute systolic (congestive) heart failure Status: Acute Assessment and Plan: Continue beta-jayden, aspirin. (6) Cardiomyopathy: Code(s): I42.9 - Cardiomyopathy, unspecified Status: Acute Assessment and Plan: Severe Subjective Date/time seen: 08/21/20 11:07 Interval history: 80-year-old status post repair fracture right femur 08/03/2020 admitted to hospital with hypoxia and respiratory failure secondary to pneumonia with positive Covid on 08/15. Long history of recurrent transfusion for myelodysplastic syndrome then troponins were elevated during this hospitalization. . Echo read returned with ejection fraction of 15-20% Date of service 08/21/2020: He is feeling worse today. Having more troubles breathing. Also having some chest pain. Review of Systems Review of Systems: All systems reviewed & are unremarkable except as noted in HPI and below Constitutional: Constitutional: Reports body ache(s), Reports chills, Denies fatigue, Denies headache(s) and Reports weakness Eyes: Eyes: Denies blurry vision ENT: Reports Normal hearing present, Denies headache(s), Denies lip swelling and Denies neck pain Cardiovascular: Cardiovascular: Reports chest pain and Reports dyspnea Respiratory: Respiratory: Reports cough and Reports dyspnea Gastrointestinal: Gastrointestinal: Denies abdominal pain Genitourinary: Genitourinary: Denies dysuria Musculoskeletal: Musculoskeletal: Denies back pain and Denies neck pain Integumentary/Breasts: Skin/Breast: Denies dry skin Neurologic: Reports Normal hearing present, Denies confusion, Denies headache(s) and Reports weakness Psychiatric: Psychiatric: Denies anxiety and Denies confusion Endocrine: Endocrine: Denies fatigue Hematologic/Lymphatic: Hematologic/Lymphatic: Denies easy bleeding and Denies easy bruising Allergic/Immunologic: Allergic/Immunologic: Denies GI upset
--- NOTE | 2020-08-21 11:08 | PCRCNOTE ---
Window of time for administration has passed. See next scheduled administration.
--- NOTE | 2020-08-21 16:49 | PM.IMPN ---
Progress Note: A&P Assessment and Plan (1) Sepsis with acute hypoxic respiratory failure: Qualifiers: Sepsis type: sepsis due to unspecified organism Severe sepsis shock status: without septic shock Qualified Code(s): A41.9 - Sepsis, unspecified organism; R65.20 - Severe sepsis without septic shock; J96.01 - Acute respiratory failure with hypoxia Code(s): A41.9 - Sepsis, unspecified organism; R65.20 - Severe sepsis without septic shock; J96.01 - Acute respiratory failure with hypoxia Status: Acute Assessment and Plan: Secondary to pneumonia probable COVID related and probable some degree of congestive heart failure. Low flow 02 for now. Prognosis is guarded and daughter would like to take home on hospice if COVID clears (2) COVID-19: Code(s): U07.1 - COVID-19 Status: Acute Assessment and Plan: Positive results and he became hypoxic 08/19, remdesivir and Decadron started 08/19,D#3 (3) Pneumonia: Qualifiers: Laterality: bilateral Lung location: unspecified part of lung Pneumonia type: due to unspecified organism Qualified Code(s): J18.9 - Pneumonia, unspecified organism Code(s): J18.9 - Pneumonia, unspecified organism Status: Acute Assessment and Plan: Probable secondary to COVID but cultured and placed on broad-spectrum antibiotics and will continue ceftriaxone and vancomycin for now BC no growth (4) Myelodysplastic syndrome: Code(s): D46.9 - Myelodysplastic syndrome, unspecified Status: Chronic Assessment and Plan: With chronic anemia. Receive 4 units of packed cells during most recent hospitalization. Would like to transfuse to hemoglobin of 8 and monitor closely Oncology has seen and Epogen has been ordered HGB 8.4 this a.m. after 3 U total this admission. (5) Elevated troponin: Code(s): R77.8 - Other specified abnormalities of plasma proteins Status: Acute Assessment and Plan: Cardiology feels it is a type 2 infarct and not and true ischemic event. Thought secondary to the COVID as well as the anemia. Treat his COVID and transfuse as needed Echocardiogram EF of 15-20% suggests in either ischemia or myocarditis from the Covid. Continue beta-jayden, aspirin, and statin Along with IV diuresis. If blood pressure can tolerated will add Rickey or ARB later (6) CHF (congestive heart failure): Qualifiers: Heart failure type: other Qualified Code(s): I50.9 - Heart failure, unspecified Code(s): I50.9 - Heart failure, unspecified Status: Acute Assessment and Plan: History of diastolic heart failure but echo reveals ejection fraction 15-20%% with diffuse hypokinesis suggesting as above either myocarditis or possible ischemia. Beta-jayden has been added with diuresis and possible ARB or Rickey later (7) DVT prophylaxis: Code(s): Z29.9 - Encounter for prophylactic measures, unspecified Status: Acute Assessment and Plan: Lovenox with Covid and no evidence of GI blood loss despite low hemoglobin Subjective Date/time seen: 08/21/20 16:49 Interval history: Date of visit 08/21. 80-year-old status post repair fracture right femur 08/03/2020 admitted to hospital with hypoxia and respiratory failure secondary to pneumonia with positive Covid on 08/15. Long history of recurrent transfusion for myelodysplastic syndrome. troponins were elevated during this hospitalization. . conversant and not complaining of any shortness of breath or discomfort.thugh requiring 3LNC Echo returned with ejection fraction of 15-20% Exam Narrative: Exam Narrative: Blood pressure 102/54 pulse is 76 saturating 99% on 3L Pupil equal reactive to light Lungs decreased breath sounds no definite consolidation or wheezing and hear no rales CV no murmurs Abdomen is soft nontender bowel sounds active Extremities without edema dorsalis pedis posterior tibial 1+ surgical wound right hip well-he
[2020-08-21] MEDS: MONTELUKAST SODIUM 10 MG TABLET PO (20:52)
[2020-08-21] MEDS: traZODone HCL 25 MG TABLET PO (20:52)
[2020-08-21] MEDS: ENOXAPARIN 40 MG/0.4 ML SYRINGE SUB-Q (20:52)
[2020-08-22] VITALS (15 sets, daily range): BP systolic 101–114; BP diastolic 47–65; PULSE 70–89; RESP 14–20; TEMP 36.5–36.8; O2SAT 94–100
[2020-08-22] MEDS: LEVALBUTEROL NEB 1.25 MG/3 ML 0.63 MG INHALATION ×4 (02:45→21:18)
[2020-08-22] MEDS: IPRATROPIUM BR 0.02% INH SOLN 0.5 MG/2.5 ML VIAL INHALATION ×4 (02:45→21:18)
[2020-08-22 06:31] LABS: Hematocrit 26.6 % (42.0-52.0); Hemoglobin 8.7 g/dL (14.0-18.0); Mean Corpuscular HGB Conc 32.7 g/dl (32-36); Mean Corpuscular Hemoglobin 30.4 pg (26-34); Mean Platelet Volume 12.8 fl (7.4-10.4); Platelet Count Result 148 k/mm3 (150-375); Red Blood Count 2.86 M/mm3 (4.6-6.20); Red Cell Distribution Width 19.5 % (11.5-14.5); White Blood Count 5.4 K/mm3 (4.5-10.0)
[2020-08-22 06:43] LABS: Lactic Acid Reflex 1.7 mmol/L (0.7-2.1)
[2020-08-22 06:44] LABS: Alanine Aminotransferase 35 U/L (4-50)
[2020-08-22 06:51] LABS: Anion Gap 5 mmol/L (8-16); Blood Urea Nitrogen 29 mg/dL (9-20); Calcium 8.1 mg/dL (8.4-10.2); Carbon Dioxide 29 mmol/L (22-30); Chloride 101 mmol/L (98-107); Estimated CRCL calculation 77 ml/min; Estimated Glomerular Filt Rate > 60; Glucose 134 mg/dL (75-110); Phosphorus 3.2 mg/dL (2.5-4.5); Potassium 3.5 mmol/L (3.4-5.0); Sodium 135 mmol/L (137-145)
[2020-08-22] MEDS: ASPIRIN 81 MG ENTERIC TABLET PO (08:39)
[2020-08-22] MEDS: ATORVASTATIN 20 MG TABLET PO (08:39)
[2020-08-22] MEDS: LIDOCAINE 5% PATCH 2 PATCH TRANSDERM (08:40)
[2020-08-22] MEDS: GABAPENTIN 300 MG CAPSULE PO ×3 (08:40→17:14)
[2020-08-22] MEDS: METOPROLOL TARTRATE 25 MG TABLET PO ×2 (08:40→20:15)
[2020-08-22] MEDS: DEXAMETHASONE SOD PHOS INJ 4 MG/ML VIAL 6 MG IV PUSH (08:40)
[2020-08-22] MEDS: PANTOPRAZOLE 40 MG TABLET PO (08:41)
[2020-08-22] MEDS: busPIRone HCL 5 MG TABLET PO ×2 (08:41→17:14)
[2020-08-22] MEDS: FUROSEMIDE INJ 40 MG/4 ML VIAL IV PUSH (08:41)
[2020-08-22] MEDS: REMDESIVIR 100 MG/NS 250 ML 100 MG/250 ML BAG 250 MG IVPB (10:57)
[2020-08-22] MEDS: POTASSIUM CHLORIDE 20 MEQ TABLET 40 MEQ PO (11:59)
--- NOTE | 2020-08-22 16:18 | PM.PNCARD ---
Progress Note: A&P Assessment and Plan (1) Elevated troponin: Code(s): R77.8 - Other specified abnormalities of plasma proteins Status: Acute Assessment and Plan: Non-STEMI. Uncertain as to Whether or not this is related to acute plaque rupture or COVID myocarditis, micro embolization etc. Dr. Haney had an extensive conversation with him and his daughter daughter Friday, August 21, 2020. Hospice would be appropriate. The daughter's main goal is to get him home to pass at her house. Will not pursue invasive workup. Medical management. Continue aspirin, atorvastatin, metoprolol tartrate and gentle diuresis. Potassium supplemented. (2) COVID-19: Code(s): U07.1 - COVID-19 Status: Acute Assessment and Plan: Supportive care per assembling motor builder and hospitalist (3) Myelodysplastic syndrome: Code(s): D46.9 - Myelodysplastic syndrome, unspecified Status: Chronic Assessment and Plan: Status post transfusion of packed red blood cells. Dr Nick has been consulted. (4) Sepsis with acute hypoxic respiratory failure: Qualifiers: Sepsis type: sepsis due to unspecified organism Severe sepsis shock status: without septic shock Qualified Code(s): A41.9 - Sepsis, unspecified organism; R65.20 - Severe sepsis without septic shock; J96.01 - Acute respiratory failure with hypoxia Code(s): A41.9 - Sepsis, unspecified organism; R65.20 - Severe sepsis without septic shock; J96.01 - Acute respiratory failure with hypoxia Status: Acute Assessment and Plan: Related to COVID pneumonia (5) Acute systolic (congestive) heart failure: Code(s): I50.21 - Acute systolic (congestive) heart failure Status: Acute Assessment and Plan: Continue beta-jayden, aspirin and gentle diuresis (6) Cardiomyopathy: Code(s): I42.9 - Cardiomyopathy, unspecified Status: Acute Assessment and Plan: Severe. Poor prognosis. Additional Plan Plan discussed with Dr. Courtney [id number] 08/22/2020 Subjective Date/time seen: 08/22/20 16:18 Interval history: Follow-up for: hypoxia and respiratory failure secondary to pneumonia with positive Covid on 08/15. Long history of recurrent transfusion for myelodysplastic syndrome. Troponin elevated during this hospitalization. Echo 08/19/2020 ejection fraction of 15-20% with wall motion abnormalities. Date of service: 08/22/2020 Subjective: Denied chest discomfort. No shortness of breath. Somewhat confused. Review of Systems Constitutional: Constitutional: Denies fatigue, Denies headache(s) and Reports weakness Eyes: Eyes: Denies blurry vision ENT: Reports Normal hearing present, Denies headache(s), Denies lip swelling and Denies neck pain Cardiovascular: Cardiovascular: Denies chest pain and Denies dyspnea Respiratory: Respiratory: Denies cough and Denies dyspnea Gastrointestinal: Gastrointestinal: Denies abdominal pain Genitourinary: Genitourinary: Denies dysuria Musculoskeletal: Musculoskeletal: Denies back pain and Denies neck pain Integumentary/Breasts: Skin/Breast: Denies dry skin Neurologic: Reports Normal hearing present, Reports confusion, Denies headache(s) and Reports weakness Psychiatric: Psychiatric: Denies anxiety and Reports confusion Endocrine: Endocrine: Denies fatigue Hematologic/Lymphatic: Hematologic/Lymphatic: Denies easy bleeding and Denies easy bruising Allergic/Immunologic: Allergic/Immunologic: Denies GI upset with certain foods and Denies lip swelling Exam Narrative: Exam Narrative: Awake. Pleasant and cooperative. Const: General: cooperative, comfortable and confusion (States he is outside the hospital.) Nutritional Appearance: underweight Orientation/consciousn
--- NOTE | 2020-08-22 16:27 | PM.IMPN ---
Progress Note: A&P Assessment and Plan (1) Sepsis with acute hypoxic respiratory failure: Qualifiers: Sepsis type: sepsis due to unspecified organism Severe sepsis shock status: without septic shock Qualified Code(s): A41.9 - Sepsis, unspecified organism; R65.20 - Severe sepsis without septic shock; J96.01 - Acute respiratory failure with hypoxia Code(s): A41.9 - Sepsis, unspecified organism; R65.20 - Severe sepsis without septic shock; J96.01 - Acute respiratory failure with hypoxia Status: Acute Assessment and Plan: Secondary to pneumonia probable COVID related and probable some degree of congestive heart failure. Low flow 02 for now. Prognosis is guarded and daughter would like to take home on hospice if COVID clears (2) COVID-19: Code(s): U07.1 - COVID-19 Status: Acute Assessment and Plan: Positive results and he became hypoxic 08/19, remdesivir and Decadron started 08/19,D#4 (3) Pneumonia: Qualifiers: Laterality: bilateral Lung location: unspecified part of lung Pneumonia type: due to unspecified organism Qualified Code(s): J18.9 - Pneumonia, unspecified organism Code(s): J18.9 - Pneumonia, unspecified organism Status: Acute Assessment and Plan: Probable secondary to COVID but cultured and placed on broad-spectrum antibiotics and will d/c ceftriaxone and vancomycin with BC no growth (4) Myelodysplastic syndrome: Code(s): D46.9 - Myelodysplastic syndrome, unspecified Status: Chronic Assessment and Plan: With chronic anemia. Receive 4 units of packed cells during most recent hospitalization. Would like to transfuse to hemoglobin of 8 and monitor closely Oncology has seen and Epogen has been ordered HGB 8.7 this a.m. after 3 U total this admission. (5) Elevated troponin: Code(s): R77.8 - Other specified abnormalities of plasma proteins Status: Acute Assessment and Plan: Cardiology feels it is a type 2 infarct and not and true ischemic event. Thought secondary to the COVID as well as the anemia. Treat his COVID and transfuse as needed Echocardiogram EF of 15-20% suggests in either ischemia or myocarditis from the Covid. Continue beta-jayden, aspirin, and statin Along with IV diuresis. If blood pressure can tolerated will add Rickey or ARB later (6) CHF (congestive heart failure): Qualifiers: Heart failure type: other Qualified Code(s): I50.9 - Heart failure, unspecified Code(s): I50.9 - Heart failure, unspecified Status: Acute Assessment and Plan: History of diastolic heart failure but echo reveals ejection fraction 15-20% with diffuse hypokinesis suggesting as above either myocarditis or possible ischemia. Beta-jayden has been added with diuresis and possible ARB or Rickey later (7) DVT prophylaxis: Code(s): Z29.9 - Encounter for prophylactic measures, unspecified Status: Acute Assessment and Plan: Lovenox with Covid and no evidence of GI blood loss despite low hemoglobin Subjective Date/time seen: 08/22/20 16:27 Interval history: Date of visit 08/22 80-year-old status post repair fracture right femur 08/03/2020 admitted to hospital with hypoxia and respiratory failure secondary to pneumonia with positive Covid on 08/15. Long history of recurrent transfusion for myelodysplastic syndrome. troponins were elevated during this hospitalization. . conversant and not complaining of any shortness of breath or discomfort. at 2 LNC Echo returned with ejection fraction of 15-20% Exam Narrative: Exam Narrative: Blood pressure 112/56 pulse is 80 saturating 100% on 2L Pupil equal reactive to light Lungs decreased breath sounds no definite consolidation or wheezing and hear no rales CV no murmurs Abdomen is soft nontender bowel sounds active Extremities without edema dorsalis pedis posterior tibial 1+ surgical wound right hip well-healed Neuro alert
[2020-08-22] MEDS: ENOXAPARIN 40 MG/0.4 ML SYRINGE SUB-Q (20:14)
[2020-08-22] MEDS: MONTELUKAST SODIUM 10 MG TABLET PO (20:15)
[2020-08-22] MEDS: traZODone HCL 25 MG TABLET PO (20:15)
[2020-08-23] VITALS (14 sets, daily range): BP systolic 101–127; BP diastolic 45–69; PULSE 71–92; RESP 18–24; TEMP 36.2–37.1; O2SAT 91–99
[2020-08-23] MEDS: IPRATROPIUM BR 0.02% INH SOLN 0.5 MG/2.5 ML VIAL INHALATION ×4 (02:24→21:24)
[2020-08-23] MEDS: LEVALBUTEROL NEB 1.25 MG/3 ML 0.63 MG INHALATION ×4 (02:24→21:24)
[2020-08-23 06:27] LABS: Hematocrit 26.5 % (42.0-52.0); Hemoglobin 8.8 g/dL (14.0-18.0); Immature Platelet Fraction Pct 16.6 % (0.9-11.2); Mean Corpuscular HGB Conc 33.2 g/dl (32-36); Mean Corpuscular Hemoglobin 30.9 pg (26-34); Mean Platelet Volume 12.6 fl (7.4-10.4); Platelet Count Result 202 k/mm3 (150-375); Red Blood Count 2.85 M/mm3 (4.6-6.20); Red Cell Distribution Width 19.5 % (11.5-14.5)
[2020-08-23] MEDS: ALBUTEROL SULFATE (*SP) AEROSOL 1 PUFF 2 PUFF INHALATION (06:28)
[2020-08-23 06:40] LABS: Alanine Aminotransferase 30 U/L (4-50); Anion Gap 7 mmol/L (8-16); Blood Urea Nitrogen 31 mg/dL (9-20); Calcium 8.5 mg/dL (8.4-10.2); Carbon Dioxide 29 mmol/L (22-30); Chloride 100 mmol/L (98-107); Estimated CRCL calculation 79 ml/min; Estimated Glomerular Filt Rate > 60; Glucose 134 mg/dL (75-110); Potassium 4.4 mmol/L (3.4-5.0); Sodium 136 mmol/L (137-145)
[2020-08-23 08:10] LABS: White Blood Count 5.8 K/mm3 (4.5-10.0)
[2020-08-23] MEDS: GABAPENTIN 300 MG CAPSULE PO ×3 (09:36→16:00)
[2020-08-23] MEDS: busPIRone HCL 5 MG TABLET PO ×2 (09:36→16:00)
[2020-08-23] MEDS: REMDESIVIR 100 MG/NS 250 ML 100 MG/250 ML BAG 250 MG IVPB (09:38)
[2020-08-23] MEDS: DEXAMETHASONE SOD PHOS INJ 4 MG/ML VIAL 6 MG IV PUSH (09:38)
[2020-08-23] MEDS: ATORVASTATIN 20 MG TABLET PO (09:39)
[2020-08-23] MEDS: PANTOPRAZOLE 40 MG TABLET PO (09:39)
[2020-08-23] MEDS: METOPROLOL TARTRATE 25 MG TABLET PO ×2 (09:39→21:29)
[2020-08-23] MEDS: FUROSEMIDE INJ 40 MG/4 ML VIAL IV PUSH (09:39)
[2020-08-23] MEDS: ASPIRIN 81 MG ENTERIC TABLET PO (09:41)
[2020-08-23] MEDS: LIDOCAINE 5% PATCH 2 PATCH TRANSDERM (09:41)
[2020-08-23 10:12] LABS: Vancomycin Trough 6.6 ug/mL (10.0-20.0)
--- NOTE | 2020-08-23 13:56 | PM.IMPN ---
Progress Note: A&P Assessment and Plan (1) Sepsis with acute hypoxic respiratory failure: Qualifiers: Sepsis type: sepsis due to unspecified organism Severe sepsis shock status: without septic shock Qualified Code(s): A41.9 - Sepsis, unspecified organism; R65.20 - Severe sepsis without septic shock; J96.01 - Acute respiratory failure with hypoxia Code(s): A41.9 - Sepsis, unspecified organism; R65.20 - Severe sepsis without septic shock; J96.01 - Acute respiratory failure with hypoxia Status: Acute Assessment and Plan: Secondary to COVID pneumonia and probable some degree of congestive heart failure. Prognosis is guarded and daughter would like to take home on hospice if COVID clears. (2) COVID-19: Code(s): U07.1 - COVID-19 Status: Acute Assessment and Plan: COVID positive results 08/15/20. He became hypoxic 08/19 and Remdesivir and Decadron started 08/19,D#5. (3) Pneumonia: Qualifiers: Laterality: bilateral Lung location: unspecified part of lung Pneumonia type: due to unspecified organism Qualified Code(s): J18.9 - Pneumonia, unspecified organism Code(s): J18.9 - Pneumonia, unspecified organism Status: Acute Assessment and Plan: Probable secondary to COVID. Patient was cultured and placed on broad-spectrum antibiotics but ceftriaxone and vancomycin stopped with BCx no growth. Continue supportive care. (4) Myelodysplastic syndrome: Code(s): D46.9 - Myelodysplastic syndrome, unspecified Status: Chronic Assessment and Plan: With chronic anemia. Hgb 6.5 on admission and received 3U PRBCs with the last one on the evening of 08/20. Hgb has climbed to the 8 range and has remained stable. Oncology has seen and Epogen has been ordered (5) Elevated troponin: Code(s): R77.8 - Other specified abnormalities of plasma proteins Status: Acute Assessment and Plan: Troponin climbed to 7.54. EKG showing ST-T wave changes in the lateral leads. Cardiology feels it is a Type 2 infarct and not and true ischemic event. Thought secondary to the COVID as well as the anemia. Echocardiogram EF of 15-20% suggests in either ischemia or myocarditis from the Covid. Continue beta-jayden, aspirin, and statin along with IV diuresis. If blood pressure can tolerated will add Rickey or ARB later (6) CHF (congestive heart failure): Qualifiers: Heart failure type: other Qualified Code(s): I50.9 - Heart failure, unspecified Code(s): I50.9 - Heart failure, unspecified Status: Acute Assessment and Plan: History of diastolic heart failure but echo reveals ejection fraction 15-20% with diffuse hypokinesis suggesting as above either myocarditis or possible ischemia. Beta-jayden has been added with diuresis and possible ARB or Rickey later. Continue Lasix. (7) DVT prophylaxis: Code(s): Z29.9 - Encounter for prophylactic measures, unspecified Status: Acute Assessment and Plan: Lovenox with Covid and no evidence of GI blood loss despite low hemoglobin Subjective Date/time seen: 08/23/20 13:56 Interval history: Date of visit 08/23 80yo male status post repair fracture right femur 08/03/2020 admitted to hospital with hypoxia and respiratory failure secondary to pneumonia with positive Covid on 08/15. Long history of requiring recurrent transfusions for myelodysplastic syndrome. Troponins elevated during this hospitalization. Alert but confused. Assuming care. Chart reviewed. No issues. Patient improving per RN. Patient up to chair and feeding himself. He was able to stand with min assist but stair-steady to move to chair. Patient denies CP, SOB, N/V and diarrhea but hx unreliable. Review of Systems Review of Systems: ROS unobtainable: Yes unobtainable due to mental status Exam Narrative: Exam Narrative: AF 97.5 101/45 76 20 99% 2L Gen - NARD sitting up i
[2020-08-23] MEDS: ENOXAPARIN 40 MG/0.4 ML SYRINGE SUB-Q (21:28)
[2020-08-23] MEDS: traZODone HCL 25 MG TABLET PO (21:29)
[2020-08-23] MEDS: MONTELUKAST SODIUM 10 MG TABLET PO (21:29)
[2020-08-23] MEDS: LORazepam (*CRX) 0.5 MG TABLET PO (22:52)
[2020-08-24] VITALS (13 sets, daily range): BP systolic 105–124; BP diastolic 42–70; PULSE 63–92; RESP 16–22; TEMP 36.2–36.9; O2SAT 93–100
[2020-08-24] MEDS: IPRATROPIUM BR 0.02% INH SOLN 0.5 MG/2.5 ML VIAL INHALATION ×3 (02:10→21:25)
[2020-08-24] MEDS: LEVALBUTEROL NEB 1.25 MG/3 ML 0.63 MG INHALATION ×3 (02:10→21:25)
[2020-08-24 06:44] LABS: Hematocrit 24.2 % (42.0-52.0); Hemoglobin 7.6 g/dL (14.0-18.0); Immature Platelet Fraction Pct 15.8 % (0.9-11.2); Mean Corpuscular HGB Conc 31.4 g/dl (32-36); Mean Corpuscular Hemoglobin 29.7 pg (26-34); Mean Corpuscular Volume 94.5 fl (80-100); Mean Platelet Volume 13.3 fl (7.4-10.4); Platelet Count Result 126 k/mm3 (150-375); Red Blood Count 2.56 M/mm3 (4.6-6.20); Red Cell Distribution Width 19.2 % (11.5-14.5); White Blood Count 3.5 K/mm3 (4.5-10.0)
[2020-08-24 07:07] LABS: Anion Gap 4 mmol/L (8-16); Blood Urea Nitrogen 30 mg/dL (9-20); Calcium 8.3 mg/dL (8.4-10.2); Carbon Dioxide 29 mmol/L (22-30); Chloride 100 mmol/L (98-107); Estimated CRCL calculation 95 ml/min; Estimated Glomerular Filt Rate > 60; Glucose 113 mg/dL (75-110); Potassium 4.2 mmol/L (3.4-5.0); Sodium 133 mmol/L (137-145)
[2020-08-24] MEDS: ATORVASTATIN 20 MG TABLET PO (09:43)
[2020-08-24] MEDS: busPIRone HCL 5 MG TABLET PO ×2 (09:43→17:05)
[2020-08-24] MEDS: FUROSEMIDE INJ 40 MG/4 ML VIAL IV PUSH (09:43)
[2020-08-24] MEDS: ASPIRIN 81 MG ENTERIC TABLET PO (09:43)
[2020-08-24] MEDS: DEXAMETHASONE SOD PHOS INJ 4 MG/ML VIAL 6 MG IV PUSH (09:43)
[2020-08-24] MEDS: PANTOPRAZOLE 40 MG TABLET PO (09:44)
[2020-08-24] MEDS: GABAPENTIN 300 MG CAPSULE PO ×3 (09:44→17:05)
[2020-08-24] MEDS: METOPROLOL TARTRATE 25 MG TABLET PO ×2 (09:44→20:46)
[2020-08-24] MEDS: LIDOCAINE 5% PATCH 2 PATCH TRANSDERM (09:44)
--- NOTE | 2020-08-24 14:53 | PM.IMPN ---
Progress Note: A&P Assessment and Plan (1) Sepsis with acute hypoxic respiratory failure: Qualifiers: Sepsis type: sepsis due to unspecified organism Severe sepsis shock status: without septic shock Qualified Code(s): A41.9 - Sepsis, unspecified organism; R65.20 - Severe sepsis without septic shock; J96.01 - Acute respiratory failure with hypoxia Code(s): A41.9 - Sepsis, unspecified organism; R65.20 - Severe sepsis without septic shock; J96.01 - Acute respiratory failure with hypoxia Status: Acute Assessment and Plan: Secondary to COVID pneumonia and probable some degree of congestive heart failure. Prognosis is guarded and daughter would like to take home on hospice if COVID clears. (2) COVID-19: Code(s): U07.1 - COVID-19 Status: Acute Assessment and Plan: COVID positive results 08/15/20. He became hypoxic 08/19 and Remdesivir and Decadron started. Completed Remdesivir on 08/23/20. Decadron Day 6 08/19. Wean O2 as toelrated. (3) Pneumonia: Qualifiers: Laterality: bilateral Lung location: unspecified part of lung Pneumonia type: due to unspecified organism Qualified Code(s): J18.9 - Pneumonia, unspecified organism Code(s): J18.9 - Pneumonia, unspecified organism Status: Acute Assessment and Plan: Probable secondary to COVID. Patient was cultured and placed on broad-spectrum antibiotics but ceftriaxone and vancomycin stopped with BCx no growth. Continue supportive care. (4) Myelodysplastic syndrome: Code(s): D46.9 - Myelodysplastic syndrome, unspecified Status: Chronic Assessment and Plan: With chronic anemia. Hgb 6.5 on admission and received 3U PRBCs with the last one on the evening of 08/20. Hgb has climbed to the 8 range but as drifted down to 7.6 today. Oncology has seen and Epogen has been ordered (5) Non-ST elevation [place] (NSTEMI): Code(s): I21.4 - Non-ST elevation (NSTEMI) myocardial infarction Status: Acute Assessment and Plan: Troponin climbed to 7.54. EKG showing ST-T wave changes in the lateral leads. Cardiology feels it is a Type 2 infarct and not a true ischemic event. Thought secondary to the COVID as well as the anemia. Echocardiogram EF of 15-20% suggests in either ischemia or myocarditis from COVID. Continue beta-jayden, aspirin, and statin along with diuresis. (6) CHF (congestive heart failure): Qualifiers: Heart failure chronicity: acute on chronic Heart failure type: combined systolic and diastolic Qualified Code(s): I50.43 - Acute on chronic combined systolic (congestive) and diastolic (congestive) heart failure Code(s): I50.9 - Heart failure, unspecified Status: Acute Assessment and Plan: History of diastolic heart failure but echo reveals ejection fraction 15-20% with diffuse hypokinesis suggesting as above either myocarditis or possible ischemia. Suspect A/Ch systolic and disatolic CHF. Beta-jayden has been added with diuresis. Change to oral Lasix. Add low dose lisinopril (7) DVT prophylaxis: Code(s): Z29.9 - Encounter for prophylactic measures, unspecified Status: Acute Assessment and Plan: Lovenox Subjective Date/time seen: 08/24/20 14:53 Interval history: Date of visit 08/24 80yo male status post repair fracture right femur 08/03/2020 admitted to hospital with hypoxia and respiratory failure secondary to pneumonia with positive Covid on 08/15. Long history of requiring recurrent transfusions for myelodysplastic syndrome. Troponins elevated during this hospitalization. Denies SOB or CP. Eating okay. No n/v. Nml BMs. Has increased cough. Left message with family Exam Narrative: Exam Narrative: AF 97.2 107/49 88 20 93% 2L Gen - NARD sitting up in chair Chest - Few basilar rhonchi o/w clear CV - RRR S1/S2 Abd - Soft, NT/ND, Positive BS Ext - no significnat edema Psych - p
--- NOTE | 2020-08-24 16:53 | PM.PNCARD ---
Progress Note: A&P Assessment and Plan (1) Elevated troponin: Code(s): R77.8 - Other specified abnormalities of plasma proteins Status: Acute Assessment and Plan: Non-STEMI. Uncertain as to whether or not this is related to acute plaque rupture or COVID myocarditis, micro embolization etc. Medical management. Continue aspirin, atorvastatin and carvedilol. Blood pressure improved. Add RENO-inhibitor (2) COVID-19: Code(s): U07.1 - COVID-19 Status: Acute Assessment and Plan: Supportive care per hospitalist (3) Myelodysplastic syndrome: Code(s): D46.9 - Myelodysplastic syndrome, unspecified Status: Chronic Assessment and Plan: Status post transfusion of packed red blood cells. Dr Nick has been consulted. (4) Sepsis with acute hypoxic respiratory failure: Qualifiers: Sepsis type: sepsis due to unspecified organism Severe sepsis shock status: without septic shock Qualified Code(s): A41.9 - Sepsis, unspecified organism; R65.20 - Severe sepsis without septic shock; J96.01 - Acute respiratory failure with hypoxia Code(s): A41.9 - Sepsis, unspecified organism; R65.20 - Severe sepsis without septic shock; J96.01 - Acute respiratory failure with hypoxia Status: Acute Assessment and Plan: Related to COVID pneumonia (5) Acute systolic (congestive) heart failure: Code(s): I50.21 - Acute systolic (congestive) heart failure Status: Acute Assessment and Plan: Continue beta-jayden, aspirin and gentle diuresis. Add RENO-inhibitor. Monitor blood pressure renal function. (6) Cardiomyopathy: Code(s): I42.9 - Cardiomyopathy, unspecified Status: Acute Assessment and Plan: Severe. Poor prognosis. Meds as above Additional Plan Plan discussed with Dr Gerard 1700 08/24/2020 Subjective Date/time seen: 08/24/20 16:53 Interval history: Follow-up for: hypoxia and respiratory failure secondary to pneumonia with positive Covid on 08/15. Long history of recurrent transfusion for myelodysplastic syndrome. Troponin elevated during this hospitalization. Echo 08/19/2020 ejection fraction of 15-20% with wall motion abnormalities. Date of service: 08/24/2020 Subjective: Confused. Blankets on the floor, oxygen off and cannula tangled in bed linen. Denied chest discomfort, shortness of breath or lighheadedness when up in chair today. Does not want to get up now. Review of Systems Constitutional: Constitutional: Reports body ache(s), Denies headache(s) and Reports weakness Eyes: Eyes: Denies blurry vision ENT: Reports Normal hearing present, Denies headache(s), Denies lip swelling and Denies neck pain Cardiovascular: Cardiovascular: Denies chest pain and Denies dyspnea Respiratory: Respiratory: Denies cough and Denies dyspnea Gastrointestinal: Gastrointestinal: Denies abdominal pain and Reports fecal incontinence Genitourinary: Genitourinary: Denies dysuria Musculoskeletal: Musculoskeletal: Denies back pain and Denies neck pain Integumentary/Breasts: Skin/Breast: Denies dry skin Neurologic: Reports Normal hearing present, Reports confusion, Denies headache(s) and Reports weakness Psychiatric: Psychiatric: Denies anxiety and Reports confusion Endocrine: Endocrine: Denies fatigue Hematologic/Lymphatic: Hematologic/Lymphatic: Denies easy bleeding and Denies easy bruising Allergic/Immunologic: Allergic/Immunologic: Denies GI upset with certain foods and Denies lip swelling Exam Narrative: Exam Narrative: Awake. Pleasant, cooperative but confused. Const: General: cooperative, comfortable and confusion Nutritional Appearance: underweight Orientation/consciousness: confusion HENMT: General nose exam: Faby
[2020-08-24] MEDS: ENOXAPARIN 40 MG/0.4 ML SYRINGE SUB-Q (20:46)
[2020-08-24] MEDS: guaiFENesin 12 HR 600 MG TABCR PO (20:46)
[2020-08-24] MEDS: MONTELUKAST SODIUM 10 MG TABLET PO (20:47)
[2020-08-24] MEDS: traZODone HCL 25 MG TABLET PO (20:47)
[2020-08-25] VITALS (16 sets, daily range): BP systolic 100–116; BP diastolic 37–92; PULSE 68–96; RESP 18–20; TEMP 36.1–36.9; O2SAT 93–100
[2020-08-25] MEDS: IPRATROPIUM BR 0.02% INH SOLN 0.5 MG/2.5 ML VIAL INHALATION ×4 (03:14→20:04)
[2020-08-25] MEDS: LEVALBUTEROL NEB 1.25 MG/3 ML 0.63 MG INHALATION ×4 (03:14→20:04)
[2020-08-25 06:46] LABS: Hematocrit 22.8 % (42.0-52.0); Hemoglobin 7.3 g/dL (14.0-18.0); Immature Platelet Fraction Pct 17.2 % (0.9-11.2); Mean Corpuscular Hemoglobin 30.3 pg (26-34); Mean Corpuscular Volume 94.6 fl (80-100); Mean Platelet Volume 13.1 fl (7.4-10.4); Platelet Count Result 128 k/mm3 (150-375); Red Blood Count 2.41 M/mm3 (4.6-6.20); Red Cell Distribution Width 18.8 % (11.5-14.5)
[2020-08-25 07:02] LABS: Anion Gap 5 mmol/L (8-16); Blood Urea Nitrogen 29 mg/dL (9-20); Calcium 8.3 mg/dL (8.4-10.2); Carbon Dioxide 30 mmol/L (22-30); Chloride 99 mmol/L (98-107); Estimated CRCL calculation 81 ml/min; Estimated Glomerular Filt Rate > 60; Glucose 109 mg/dL (75-110); Potassium 3.9 mmol/L (3.4-5.0); Sodium 134 mmol/L (137-145)
[2020-08-25] MEDS: ASPIRIN 81 MG ENTERIC TABLET PO (08:44)
[2020-08-25] MEDS: ATORVASTATIN 20 MG TABLET PO (08:45)
[2020-08-25] MEDS: busPIRone HCL 5 MG TABLET PO ×2 (08:47→16:44)
[2020-08-25] MEDS: DEXAMETHASONE SOD PHOS INJ 4 MG/ML VIAL 6 MG IV PUSH (08:47)
[2020-08-25] MEDS: guaiFENesin 12 HR 600 MG TABCR PO ×2 (08:48→20:23)
[2020-08-25] MEDS: FUROSEMIDE 40 MG TABLET PO (08:48)
[2020-08-25] MEDS: GABAPENTIN 300 MG CAPSULE PO ×3 (08:48→16:44)
[2020-08-25] MEDS: LIDOCAINE 5% PATCH 2 PATCH TRANSDERM (08:49)
[2020-08-25] MEDS: lisinopriL 5 MG TABLET PO (08:50)
[2020-08-25] MEDS: METOPROLOL TARTRATE 25 MG TABLET PO ×2 (08:50→20:23)
[2020-08-25] MEDS: PANTOPRAZOLE 40 MG TABLET PO (08:51)
--- NOTE | 2020-08-25 14:28 | PM.IMPN ---
Progress Note: A&P Assessment and Plan (1) Sepsis with acute hypoxic respiratory failure: Qualifiers: Sepsis type: sepsis due to unspecified organism Severe sepsis shock status: without septic shock Qualified Code(s): A41.9 - Sepsis, unspecified organism; R65.20 - Severe sepsis without septic shock; J96.01 - Acute respiratory failure with hypoxia Code(s): A41.9 - Sepsis, unspecified organism; R65.20 - Severe sepsis without septic shock; J96.01 - Acute respiratory failure with hypoxia Status: Acute Assessment and Plan: Secondary to COVID pneumonia and probable some degree of congestive heart failure. Spoke with dtr at length. Informed of the hospital course and patient's current condition. Discussed options at length. She decided to continue current treatment plan as we arrange for home with hospice. Care coordination was informed that the daughter wants to take the patient home with hospice. This will take a day or so to arrange. Will keep Quinones catheter in place. (2) COVID-19: Code(s): U07.1 - COVID-19 Status: Acute Assessment and Plan: COVID positive results 08/15/20. He became hypoxic 08/19 and Remdesivir and Decadron started. Completed Remdesivir on 08/23/20. Decadron started 08/19; Day 7. Wean O2 as tolerated (3) Pneumonia: Qualifiers: Laterality: bilateral Lung location: unspecified part of lung Pneumonia type: due to unspecified organism Qualified Code(s): J18.9 - Pneumonia, unspecified organism Code(s): J18.9 - Pneumonia, unspecified organism Status: Acute Assessment and Plan: Probable secondary to COVID. Patient was cultured and placed on broad-spectrum antibiotics but ceftriaxone and vancomycin stopped with BCx no growth. Continue supportive care. (4) Myelodysplastic syndrome: Code(s): D46.9 - Myelodysplastic syndrome, unspecified Status: Chronic Assessment and Plan: With chronic anemia. Hgb 6.5 on admission and received 3U PRBCs with the last one on the evening of 08/20. Hgb has climbed to the 8 range but as drifted down to 7.3 today. Oncology has seen and Epogen has been ordered. Continue to follow. (5) Non-ST elevation [place] (NSTEMI): Code(s): I21.4 - Non-ST elevation (NSTEMI) myocardial infarction Status: Acute Assessment and Plan: Troponin climbed to 7.54. EKG showing ST-T wave changes in the lateral leads. Cardiology feels it is a Type 2 infarct and not a true ischemic event. Thought secondary to the COVID as well as the anemia. Echocardiogram EF of 15-20% suggests in either ischemia or myocarditis from COVID. Continue beta-jayden, aspirin, and statin along with diuresis. (6) CHF (congestive heart failure): Qualifiers: Heart failure chronicity: acute on chronic Heart failure type: combined systolic and diastolic Qualified Code(s): I50.43 - Acute on chronic combined systolic (congestive) and diastolic (congestive) heart failure Code(s): I50.9 - Heart failure, unspecified Status: Acute Assessment and Plan: History of diastolic heart failure but echo reveals ejection fraction 15-20% with diffuse hypokinesis suggesting as above either myocarditis or possible ischemia. Suspect A/Ch systolic and disatolic CHF. Continue Beta-jayden, Lisinopril and Lasix. (7) DVT prophylaxis: Code(s): Z29.9 - Encounter for prophylactic measures, unspecified Status: Acute Assessment and Plan: Lovenox Subjective Date/time seen: 08/25/20 14:28 Interval history: Date of visit 08/24 80yo male status post repair fracture right femur 08/03/2020 admitted to hospital with hypoxia and respiratory failure secondary to pneumonia with positive Covid on 08/15. Long history of requiring recurrent transfusions for myelodysplastic syndrome. Troponins elevated during this hospitalization. Patient more alert and oriented. He denies CP or SOB.
[2020-08-25] MEDS: ENOXAPARIN 40 MG/0.4 ML SYRINGE SUB-Q (20:23)
[2020-08-25] MEDS: MONTELUKAST SODIUM 10 MG TABLET PO (20:24)
[2020-08-25] MEDS: traZODone HCL 25 MG TABLET PO (20:24)
[2020-08-26] VITALS (16 sets, daily range): BP systolic 102–115; BP diastolic 42–50; PULSE 60–93; RESP 16–20; TEMP 36.4–37.5; O2SAT 96–100
[2020-08-26] MEDS: IPRATROPIUM BR 0.02% INH SOLN 0.5 MG/2.5 ML VIAL INHALATION ×4 (02:28→22:06)
[2020-08-26] MEDS: LEVALBUTEROL NEB 1.25 MG/3 ML 0.63 MG INHALATION ×4 (02:28→22:06)
[2020-08-26 06:42] LABS: Hematocrit 24.2 % (42.0-52.0); Mean Corpuscular HGB Conc 33.1 g/dl (32-36); Mean Corpuscular Volume 93.8 fl (80-100); Mean Platelet Volume 12.7 fl (7.4-10.4); Platelet Count Result 132 k/mm3 (150-375); Red Blood Count 2.58 M/mm3 (4.6-6.20); Red Cell Distribution Width 19.3 % (11.5-14.5); White Blood Count 3.7 K/mm3 (4.5-10.0)
[2020-08-26 06:54] LABS: Anion Gap 3 mmol/L (8-16); Blood Urea Nitrogen 24 mg/dL (9-20); Calcium 8.4 mg/dL (8.4-10.2); Carbon Dioxide 30 mmol/L (22-30); Chloride 99 mmol/L (98-107); Estimated CRCL calculation 81 ml/min; Estimated Glomerular Filt Rate > 60; Glucose 111 mg/dL (75-110); Sodium 132 mmol/L (137-145)
[2020-08-26] MEDS: ASPIRIN 81 MG ENTERIC TABLET PO (09:04)
[2020-08-26] MEDS: ATORVASTATIN 20 MG TABLET PO (09:04)
[2020-08-26] MEDS: GABAPENTIN 300 MG CAPSULE PO ×3 (09:04→16:43)
[2020-08-26] MEDS: DEXAMETHASONE SOD PHOS INJ 4 MG/ML VIAL 6 MG IV PUSH (09:04)
[2020-08-26] MEDS: busPIRone HCL 5 MG TABLET PO ×2 (09:04→16:44)
[2020-08-26] MEDS: PANTOPRAZOLE 40 MG TABLET PO (09:04)
[2020-08-26] MEDS: LIDOCAINE 5% PATCH 2 PATCH TRANSDERM (09:04)
[2020-08-26] MEDS: guaiFENesin 12 HR 600 MG TABCR PO ×2 (09:04→20:36)
[2020-08-26] MEDS: METOPROLOL TARTRATE 25 MG TABLET PO ×2 (09:09→20:35)
[2020-08-26] MEDS: lisinopriL 5 MG TABLET PO (09:09)
[2020-08-26] MEDS: FUROSEMIDE 40 MG TABLET PO (09:09)
--- NOTE | 2020-08-26 16:25 | PM.IMPN ---
Progress Note: A&P Assessment and Plan (1) Sepsis with acute hypoxic respiratory failure: Qualifiers: Sepsis type: sepsis due to unspecified organism Severe sepsis shock status: without septic shock Qualified Code(s): A41.9 - Sepsis, unspecified organism; R65.20 - Severe sepsis without septic shock; J96.01 - Acute respiratory failure with hypoxia Code(s): A41.9 - Sepsis, unspecified organism; R65.20 - Severe sepsis without septic shock; J96.01 - Acute respiratory failure with hypoxia Status: Acute Assessment and Plan: Secondary to COVID pneumonia and probable some degree of congestive heart failure. Spoke with dtr at length yesterday. Informed of the hospital course and patient's current condition. She decided to continue current treatment plan as we arrange for home with hospice. Care coordination making arrangements for home with hospice. (2) COVID-19: Code(s): U07.1 - COVID-19 Status: Acute Assessment and Plan: COVID positive results 08/15/20. He became hypoxic 08/19 and Remdesivir and Decadron started. Completed Remdesivir on 08/23/20. Decadron started 08/19; Day 8. (3) Pneumonia: Qualifiers: Laterality: bilateral Lung location: unspecified part of lung Pneumonia type: due to unspecified organism Qualified Code(s): J18.9 - Pneumonia, unspecified organism Code(s): J18.9 - Pneumonia, unspecified organism Status: Acute Assessment and Plan: Probable secondary to COVID. Patient was cultured and placed on broad-spectrum antibiotics but ceftriaxone and vancomycin stopped with BCx no growth. Continue supportive care. (4) Myelodysplastic syndrome: Code(s): D46.9 - Myelodysplastic syndrome, unspecified Status: Chronic Assessment and Plan: With chronic anemia. Hgb 6.5 on admission and received 3U PRBCs with the last one on the evening of 08/20. Hgb has climbed to the 8 range and stable in the 7-8 range. Oncology has seen and Epogen has been ordered. Continue to follow. (5) Non-ST elevation [place] (NSTEMI): Code(s): I21.4 - Non-ST elevation (NSTEMI) myocardial infarction Status: Acute Assessment and Plan: Troponin climbed to 7.54. EKG showing ST-T wave changes in the lateral leads. Cardiology feels it is a Type 2 infarct and not a true ischemic event. Thought secondary to the COVID as well as the anemia. Echocardiogram EF of 15-20% suggests in either ischemia or myocarditis from COVID. Continue beta-jayden, aspirin, and statin along with diuresis. Euvolemic. (6) CHF (congestive heart failure): Qualifiers: Heart failure chronicity: acute on chronic Heart failure type: combined systolic and diastolic Qualified Code(s): I50.43 - Acute on chronic combined systolic (congestive) and diastolic (congestive) heart failure Code(s): I50.9 - Heart failure, unspecified Status: Acute Assessment and Plan: History of diastolic heart failure but echo reveals ejection fraction 15-20% with diffuse hypokinesis suggesting as above either myocarditis or possible ischemia. Suspect A/Ch systolic and disatolic CHF. Continue Beta-jayden, Lisinopril and Lasix. (7) DVT prophylaxis: Code(s): Z29.9 - Encounter for prophylactic measures, unspecified Status: Acute Assessment and Plan: Lovenox Subjective Date/time seen: 08/26/20 16:25 Interval history: Date of visit 08/26 80yo male status post repair fracture right femur 08/03/2020 admitted to hospital with hypoxia and respiratory failure secondary to pneumonia with positive Covid on 08/15. Long history of requiring recurrent transfusions for myelodysplastic syndrome. Troponins elevated during this hospitalization. Discussed with dtr with plans for home with hospice at discharge. Patient alert but confused. He feels well. Review of Systems Review of Systems: ROS unobtainable: Yes unobtainable due t
[2020-08-26] MEDS: MONTELUKAST SODIUM 10 MG TABLET PO (20:35)
[2020-08-26] MEDS: traZODone HCL 25 MG TABLET PO (20:35)
[2020-08-26] MEDS: LORazepam (*CRX) 0.5 MG TABLET PO (20:35)
[2020-08-26] MEDS: ENOXAPARIN 40 MG/0.4 ML SYRINGE SUB-Q (20:36)
[2020-08-27] MEDS: IPRATROPIUM BR 0.02% INH SOLN 0.5 MG/2.5 ML VIAL INHALATION ×2 (02:35→10:28)
[2020-08-27] MEDS: LEVALBUTEROL NEB 1.25 MG/3 ML 0.63 MG INHALATION ×2 (02:35→10:28)
[2020-08-27 02:39] VITALS: PULSE 64; RESP 18
[2020-08-27 04:00] VITALS: BP 110/70; PULSE 61; RESP 18; TEMP 36.5; O2SAT 96
[2020-08-27 08:00] VITALS: BP 109/40; PULSE 75; RESP 20; TEMP 36.7; O2SAT 98
[2020-08-27] MEDS: ATORVASTATIN 20 MG TABLET PO (08:47)
[2020-08-27] MEDS: ASPIRIN 81 MG ENTERIC TABLET PO (08:47)
[2020-08-27] MEDS: DEXAMETHASONE SOD PHOS INJ 4 MG/ML VIAL 6 MG IV PUSH (08:48)
[2020-08-27] MEDS: busPIRone HCL 5 MG TABLET PO (08:48)
[2020-08-27] MEDS: GABAPENTIN 300 MG CAPSULE PO ×2 (08:51→12:27)
[2020-08-27] MEDS: FUROSEMIDE 40 MG TABLET PO (08:51)
[2020-08-27] MEDS: lisinopriL 5 MG TABLET PO (08:52)
[2020-08-27] MEDS: guaiFENesin 12 HR 600 MG TABCR PO (08:52)
[2020-08-27] MEDS: LIDOCAINE 5% PATCH 2 PATCH TRANSDERM (08:52)
[2020-08-27] MEDS: PANTOPRAZOLE 40 MG TABLET PO (08:53)
[2020-08-27] MEDS: METOPROLOL TARTRATE 25 MG TABLET PO (08:53)
[2020-08-27 10:32] VITALS: PULSE 71; RESP 20; O2SAT 98
[2020-08-27 10:45] VITALS: PULSE 64; RESP 20
[2020-08-27] MEDS: LORazepam (*CRX) 0.5 MG TABLET PO (11:23)
[2020-08-27 12:00] VITALS: BP 102/38; PULSE 74; RESP 20; TEMP 36.7; O2SAT 96
--- NOTE | 2020-08-27 12:05 | PM.DS ---
DS: Admitting Diagnosis Admitting Diagnosis Admitting Diagnosis: Hypoxic DS: Discharge Diagnosis Discharge Diagnosis (1) Sepsis with acute hypoxic respiratory failure: Qualifiers: Sepsis type: sepsis due to unspecified organism Severe sepsis shock status: without septic shock Qualified Code(s): A41.9 - Sepsis, unspecified organism; R65.20 - Severe sepsis without septic shock; J96.01 - Acute respiratory failure with hypoxia Code(s): A41.9 - Sepsis, unspecified organism; R65.20 - Severe sepsis without septic shock; J96.01 - Acute respiratory failure with hypoxia Status: Acute Assessment and Plan: Secondary to COVID pneumonia and probable some degree of congestive heart failure. Spoke with dtr and she was informed of the hospital course and patient's current condition. She decided to continue current treatment plan as we arrange for home with hospice. Care coordination made arrangements for home with hospice with plan for discharge today. (2) COVID-19: Code(s): U07.1 - COVID-19 Status: Acute Assessment and Plan: COVID positive results 08/15/20. He became hypoxic 08/19 and Remdesivir and Decadron started. Completed Remdesivir on 08/23/20. Completed 9 days of Decadron. Weaned to room air. (3) Pneumonia: Qualifiers: Laterality: bilateral Lung location: unspecified part of lung Pneumonia type: due to unspecified organism Qualified Code(s): J18.9 - Pneumonia, unspecified organism Code(s): J18.9 - Pneumonia, unspecified organism Status: Acute Assessment and Plan: Probable secondary to COVID. Patient was cultured and placed on broad-spectrum antibiotics but ceftriaxone and vancomycin stopped with BCx no growth. We continued supportive care. (4) Myelodysplastic syndrome: Code(s): D46.9 - Myelodysplastic syndrome, unspecified Status: Chronic Assessment and Plan: With chronic anemia. Hgb 6.5 on admission and received 3U PRBCs with the last one on the evening of 08/20. Hgb improved and now stable in the 7-8 range. Oncology has seen the patient and Epogen was been ordered. (5) Non-ST elevation [place] (NSTEMI): Code(s): I21.4 - Non-ST elevation (NSTEMI) myocardial infarction Status: Acute Assessment and Plan: Troponin climbed to 7.54. EKG showing ST-T wave changes in the lateral leads. Cardiology felt it is a Type 2 infarct and not a true ischemic event. Thought secondary to COVID as well as the anemia. Echocardiogram with EF of 15-20% suggests either ischemia or myocarditis from COVID. Treated with beta-jayden, aspirin, and statin along with diuresis. Euvolemic. (6) CHF (congestive heart failure): Qualifiers: Heart failure chronicity: acute on chronic Heart failure type: combined systolic and diastolic Qualified Code(s): I50.43 - Acute on chronic combined systolic (congestive) and diastolic (congestive) heart failure Code(s): I50.9 - Heart failure, unspecified Status: Acute Assessment and Plan: History of diastolic heart failure but echo reveals ejection fraction 15-20% with diffuse hypokinesis suggesting as above either myocarditis or possible ischemia. Suspect A/Ch systolic and disatolic CHF. Continue Beta-jayden, Lisinopril and Lasix. DS: Summary Hospital Course Reason for hospitalization: 80yo male with myelodysplasia and chronic anemia discharged from [facility] on 08/08/2020 after repair of fractured right femur 08/03/20. He was convalescing at local long-term and COVID test returned positive 08/15. He became hypoxic and was sent to the emergency room where he is found to have bilateral infiltrates, elevated troponin, and hypoxia. He is admitted for evaluation and treatment of the same. Hospital Course: Please see above for details of hospital course. Status at Discharge Cognitive/behavioral status at discharge: PATIENT STABLE FOR DISCHA
--- NOTE | 2020-08-27 17:30 | PC.NURSE ---
@0733 this nurse notified Nicolle the daughter that Jacque was being brought back home via EMS.
--- NOTE | 2020-08-27 17:32 | PC.NURSE ---
[employer] workers compensation analyst was notified that Jacque is being transferred back home @1600.
== END 2020-08-27 15:40 | disposition hospice, home (50) | DRG 871 ==
LOC: ANHED 10:31 → ANHICU 11:10 → ANH3MEDSUR 08-20 19:09
PROVIDERS: Internal Medicine; Internal Medicine Critical Care Medicine; Admitting Provider Internal Medicine; Emergency Provider Emergency Medicine; PCP Internal Medicine; Visit Provider Internal Medicine
DX: A41.89 Other specified sepsis (principal); U07.1 COVID-19; J12.89 Other viral pneumonia; I21.A1 Myocardial infarction type 2; I50.43 Acute on chronic combined systolic (congestive) and diastolic (congestive) heart failure; I42.9 Cardiomyopathy, unspecified; R65.20 Severe sepsis without septic shock; D46.9 Myelodysplastic syndrome, unspecified; F32.9 Major depressive disorder, single episode, unspecified
CPT/HCPCS: 36415; 36430; 36600; 71045; 71275; 74019; 80048; 80053; 80202; 81001; 82375; 82728; 82805; 83050; 83605; 83615; 83735; 83880; 84100; 84460; 84484; 85025; 85027; 85055; 85610; 85730; 86140; 86850; 86900; 86901; 86923; 87040; 87086; 87804; 93005; 93306; 93970; 94002; 94640; 96361; 96365; 96375; 97110; 97116; 97162; 97165; 97530; 97535; 99285; A9270; J0131; J0456; J0696; J1100; J1650; J1940; J2060; J3370; J7030; J7050; P9016; Q5106; Q9967